=== PATIENT | male | born 1945 | race Caucasian/White ===

== ENCOUNTER 2020-09-07 10:23 | Emergency (ER) | payer OTHER, SELFPAY ==
[2020-09-07 10:35] VITALS: BP 149/65; PULSE 76; RESP 20; TEMP 36.3; O2SAT 98; BMI 25.1
--- NOTE | 2020-09-07 10:48 | CT_ITS ---
WS: [id number] CT HEAD TECHNIQUE: Noncontrast CT of the head obtained from the skullbase to the vertex. CLINICAL INFORMATION: headache COMPARISON: None. DLP: 1844.[address] scans at [facility] use at least one of these dose optimization techniques: automat ed exposure control; mA and/or kV adjustment per patient size (includes targeted exams where dose is matched to clinical indication); or iterative reconstruction. FINDINGS: No evidence of intracranial hemorrhage or mass effect. Ventricular system and basal cisterns are day nt. Moderate small vessel changes with moderate parenchymal volume loss. Chronic lacunar infarct righ t caudate. No extra-axial fluid collections. No evidence of mass or mass effect. Paranasal sinuses and mastoid air cells are well aerated. .Normal visualized soft tissues. CT/CT head wo con* [id number] IMPRESSION: 1. No evidence of intracranial hemorrhage or mass effect. 2. Moderate small vessel changes. Moderate global volume loss. 3. Chronic lacunar infarct right caudate. 4. No acute intracranial findings.
--- NOTE | 2020-09-07 10:49 | XR_ITS ---
WS: [id number] Portable AP upright chest, 09/07/2020 Clinical Data: cough Comparison: None. Findings: No nodules, masses or effusions are seen. The heart is normal. The pulmonary vascularity is not increased. No pneumonia or pneumothorax is seen. The diaphragms are flattened. The aortic arch a nd descending aorta show calcification and mild tortuosity. XR/XR chest 1V portable [id number] Impression: Hyperinflation and atherosclerosis.
--- NOTE | 2020-09-07 10:49 | ECG_ITS ---
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 Measurements Intervals [place] Rate: 66 P: 59 GA: 180 QRS: 34 QRSD: 86 T: 79 QT: 379 QTc: 400 Interpretive Statements SINUS RHYTHM No previous ECG available for comparison Electronically Signed On 09-07-2020 18:22:48 CDT by Yury Buck M.D. [id number] f
--- NOTE | 2020-09-07 10:57 | W.ED.SOB ---
HPI - SOB/Dyspnea General: Chief Complaint: Shortness of Breath/Dyspnea Stated Complaint: SOB, weakness Time Seen by Provider: 09/07/20 10:39 History of Present Illness: HPI Narrative: 75-year-old male patient presents to the emergency department with 5-day onset of weakness. He reports progressive shortness of breath, loss of appetite, he denies fever chills. Has not been exposed to anyone ill. MD elicited complaint: shortness of breath and cough Pertinent past history: COPD Onset (ago): day(s) (5) Timing: constant and progressively worsening Severity: moderate Exacerbating factors: exertion and movement Relieving factors: rest Known history of: COPD Associated symptoms: Reports chest congestion (not changed from baseline), cough, dizziness and other (headache with blurred vision); Deny abdominal pain, chest pain, diaphoresis, fever(s), hemoptysis, nausea, palpitations or vomiting Treatment prior to arrival: other (use of inhaler) Review of Systems General: Reports: 10 or more systems reviewed and unremarkable except in HPI and below Const: Reports: fatigue and malaise; Denies: fever(s), chills or diaphoresis Eyes: Reports: change in vision and blurry vision; Denies: eye redness ENMT: Denies: throat pain, dental pain or disequilibrium Card: Denies: chest pain, palpitations or irregular heart rhythm Resp: Reports: productive cough (arambula) and chest congestion (not changed from baseline); Denies: dyspnea, non-productive cough, wheezing, pain on inspiration or hemoptysis GI: Denies: abdominal pain, nausea or vomiting : Denies: dysuria Musc: Reports: muscle weakness; Denies: neck pain or back pain Skin/Breast: Denies: rash, pruritus, erythema or changing lesions Neuro: Reports: headache(s) and dizziness Psych: Denies: anxiety or depression Yannick/Lymph: Denies: easy bruising PFSH ED PFSH: Family History (Updated 01/07/20 @ 08:43 by Leelee Stratton LPN) Father Cancer Prostate CA COPD (chronic obstructive pulmonary disease) Stroke Mother Cancer Ovarian CA Hypertension Physical Exam Const: COMMON NORMALS: no acute distress, patient oriented x3 and alert GENERAL APPEARANCE: cooperative, comfortable, well kempt and well hydrated NUTRITIONAL APPEARANCE: thin ORIENTATION/CONSCIOUSNESS: Yes awake, Yes oriented to person, Yes oriented to place and Yes oriented to time HENMT: COMMON NORMALS: normocephalic, Normal external nose present and moist oral mucous membranes HEAD & SCALP: normocephalic NOSE: Normal external nose present Eye: COMMON NORMALS: Equal, round and reactive pupils present and EOMs intact bilaterally GENERAL EYE: appearance normal, both eyes and all related structures VISUAL SAMUEL: No peripheral vision loss ALIGNMENT: Yes alignment normal EYELID: eyelids normal PUPIL: Yes Equal, round and reactive pupils present, Yes pupil size - right Right pupil size (mm): 3 and Yes pupil size - left Left pupil size (mm): 3 Neck/C-Spine: COMMON NORMALS: full ROM and no lymphadenopathy GENERAL: Yes normal visual inspection and Yes trachea midline CERVICAL SPINE: Yes cervical ROM normal Lymph: LYMPHATIC: no lymphadenopathy noted Chest: COMMONS NORMALS: normal inspection of the chest and normal palpation of entire chest wall Resp: COMMON NORMALS: normal respiratory effort and clear to auscultation bilaterally EFFORT & INSPECTION: Yes able to speak in complete sentences AUSCULTATION: clear to auscultation bilaterally Cardio: COMMON NORMALS: regular rhythm, S1 normal heart sound present, S2 normal heart sound present and Peripheral pulses 2+ throughout RHYTHM: regular rhythm HEART SOUNDS: S1 normal heart sound present and S2 normal heart sound present PERIPHERAL PULSES: Peripheral pulses 2+ throughout GI: COMMON NORMALS: Normal to inspection, nondistended, normoactive bowel sounds present, Soft to palpation and non-tender INSPECTION: Yes normal to inspection PALPATION: Yes Soft to palpation : COMMON NORMALS: Yes no CVA tenderness BLADDER/KIDNEY EXAM: Yes no CVA tenderness Back/Pelvis: COMMON NORMALS: no CVA tenderness and thoracic and lumbar spine normal to inspection Extremity: COMMON NORMALS: normal to inspection and capillary refill normal GENERAL: Yes normal exam except as noted Neuro: SHANON COMA SCALE: document GCS findings [place] coma scale eye opening: Spontaneous Shanon coma scale verbal response: Orientated [place] coma scale motor response: Obey commands Shanon coma scale total score: 15 COMMON NORMALS: patient oriented x3 and no focal motor deficits SENSORIUM/ORIENTATION: Yes alert, Yes oriented to person, Yes oriented to place and Yes oriented to time SPEECH: speech normal GAIT: Yes Normal gait present MOTOR EXAM: 5/5 motor strength present throughout Psych: COMMON NORMALS: mental status grossly normal, Normal thought process present and cooperative APPEARANCE: Yes well kempt ACTIVITY/MOTOR BEHAVIOR: Yes appropriate eye contact THOUGHT PROCESS: Normal thought process present Skin: COMMON NORMALS: no rashes or lesions noted and turgor normal GENERAL SKIN EXAM: no rashes or lesions noted and turgor normal Course ED course: Heart score 4 -delta increase of greater than 4, results 6; hospitalization for cardiac monitoring recommended, he declined, he reports does not wish to stay and wants to go home. CT scan of the head negative for bleed/acute abnormality, chest x-ray with atherosclerosis/hyperinflation consistent with COPD. D-dimer was not elevated. CBC normal. He agrees for COVID-19 testing today with recommendation for home oxygen monitoring. Oxygen sensor will be provided to the patient, advised for him to return to the emergency department if he develops increased weakness, chest pain or vomiting, verbalized understanding. He reports is feeling better since IV fluids completed. He agrees for follow-up with Dr. Mirza with outpatient nuclear medicine stress test. COVID-19 results will be provided to the patient within 24 to 48 hours. Results of today's testing discussed with the patient and significant other, questions were answered, discharge instructions discussed. He remains on cholesterol-lowering medication and daily aspirin. He is aware of my concern with elevated troponin and EKG changes according to computerized readout, I discussed can result if he does not stay, he reports will return to the emergency room if he develops worsening symptoms. He again declined admission. Vital Signs: Vital signs: Vital Signs Temperature 97.3 F L 09/07/20 10:35 Pulse Rate 81 09/07/20 14:00 Respiratory Rate 16 09/07/20 14:00 Blood Pressure 132/74 09/07/20 14:00 Pulse Oximetry 97 09/07/20 14:00 MDM - SOB/Dyspnea Lab Data: Labs: Lab Results 09/07/20 09/07/20 09/07/20 Range/Units 11:45 11:45 11:45 WBC 5.9 (4.0-10.0) 10^3/ uL RBC 3.82 L (4.1-5.3) 10^6/u L Hgb 12.5 (11.7-16.6) g/dL Hct 37.1 L (42.0-52.0) % MCV 97.1 H (80-94) fL MCH 32.7 (28.0-34.0) pg MCHC 33.7 (30.0-36.0) g/dL RDW 12.6 (12.1-15.1) % Plt Count 168 (130-400) 10^3/c mm MPV 9.4 (7.4-10.4) fL Neut % (Auto) 66.4 % Lymph % (Auto) 22.2 % [place] % (Auto) 9.8 % Eos % (Auto) 1.0 % Baso % (Auto) 0.3 % Neut # (Auto) 3.92 (1.8-7.7) 10^3/u L Lymph # (Auto) 1.3 (0.8-4.8) 10^3/u L [place] # (Auto) 0.6 (0.2-0.9) 10^3/u L Eos # (Auto) 0.1 (0.0-0.8) 10^3/u L Baso # (Auto) 0.0 (0.0-0.1) 10^3/u L Nucleated RBC % (a uto) 0 % Nucleated RBCs # 0.0 /100WBC D-Dimer 0.57 (0-0.59) ug/mIFE U Sodium 131 L (136-145) mmol/L Potassium 4.4 (3.5-5.1) mmol/L Chloride 98 (98-107) mmol/L Carbon Dioxide 25 (22-29) mmol/L Anion Gap 12.4 (5-19) BUN 14 (8-23) mg/dL Creatinine 0.9 (0.7-1.2) mg/dL GFR Calculation Not Reportable Glucose 115 (65-115) mg/dL Calculated Osmolal ity 273 L (285-295) mOsm/k g Lactate (0.5-2.2) mmol/L Calcium 9.1 (8.5-10.5) mg/dL Total Bilirubin 0.6 (0.15-1.2) mg/dL AST 16 (0-40) U/L ALT 14 (0-41) U/L Alkaline Phosphata se 75 (40-130) IU/L Troponin T Baselin e (0-15) ng/L Troponin T 120 Min [place] (0-15) ng/L Delta Troponin T (0-10) ABS# Total Protein 6.3 L (6.6-8.7) g/dL Albumin 4.0 (3.5-5.2) g/dL Globulin 2.3 (1.3-4.6) g/dL Urine Color (Yellow) Urine Appearance (CLEAR) Urine pH (5-7) Ur Specific Gravit y (1.005-1.030) Urine Protein (Negative) Urine Glucose (UA) (Normal) Urine Ketones (Negative) Urine Blood (Negative) Urine Nitrate (Negative) Urine Bilirubin (Negative) Prot Sulfosalicyli c Acd (Negative) Urine Urobilinogen (Negative) mg/dL Ur Leukocyte Aislinn ase (Negative) 09/07/20 09/07/20 09/07/20 Range/Units 11:45 11:45 11:45 WBC (4.0-10.0) 10^3/ uL RBC (4.1-5.3) 10^6/u L Hgb (11.7-16.6) g/dL Hct (42.0-52.0) % MCV (80-94) fL MCH (28.0-34.0) pg MCHC (30.0-36.0) g/dL RDW (12.1-15.1) % Plt Count (130-400) 10^3/c mm MPV (7.4-10.4) fL Neut % (Auto) % Lymph % (Auto) % [place] % (Auto) % Eos % (Auto) % Baso % (Auto) % Neut # (Auto) (1.8-7.7) 10^3/u L Lymph # (Auto) (0.8-4.8) 10^3/u L [place] # (Auto) (0.2-0.9) 10^3/u L Eos # (Auto) (0.0-0.8) 10^3/u L Baso # (Auto) (0.0-0.1) 10^3/u L Nucleated RBC % (a uto) % Nucleated RBCs # /100WBC D-Dimer (0-0.59) ug/mIFE U Sodium (136-145) mmol/L Potassium (3.5-5.1) mmol/L Chloride (98-107) mmol/L Carbon Dioxide (22-29) mmol/L Anion Gap (5-19) BUN (8-23) mg/dL Creatinine (0.7-1.2) mg/dL GFR Calculation Glucose (65-115) mg/dL Calculated Osmolal ity (285-295) mOsm/k g Lactate 0.8 (0.5-2.2) mmol/L Calcium (8.5-10.5) mg/dL Total Bilirubin (0.15-1.2) mg/dL AST (0-40) U/L ALT (0-41) U/L Alkaline Phosphata se (40-130) IU/L Troponin T Baselin e 21 H (0-15) ng/L Troponin T 120 Min [place] (0-15) ng/L Delta Troponin T (0-10) ABS# Total Protein (6.6-8.7) g/dL Albumin (3.5-5.2) g/dL Globulin (1.3-4.6) g/dL Urine Color Yellow (Yellow) Urine Appearance Clear (CLEAR) Urine pH 8 H (5-7) Ur Specific Gravit y 1.010 (1.005-1.030) Urine Protein Neg (Negative) Urine Glucose (UA) Norm (Normal) Urine Ketones Negative (Negative) Urine Blood Neg (Negative) Urine Nitrate Negative (Negative) Urine Bilirubin Neg (Negative) Prot Sulfosalicyli c Acd Negative (Negative) Urine Urobilinogen Norm (Negative) mg/dL Ur Leukocyte Aislinn ase Negative (Negative) 09/07/20 Range/Units 13:45 WBC (4.0-10.0) 10^3/ uL RBC (4.1-5.3) 10^6/u L Hgb (11.7-16.6) g/dL Hct (42.0-52.0) % MCV (80-94) fL MCH (28.0-34.0) pg MCHC (30.0-36.0) g/dL RDW (12.1-15.1) % Plt Count (130-400) 10^3/c mm MPV (7.4-10.4) fL Neut % (Auto) % Lymph % (Auto) % [place] % (Auto) % Eos % (Auto) % Baso % (Auto) % Neut # (Auto) (1.8-7.7) 10^3/u L Lymph # (Auto) (0.8-4.8) 10^3/u L [place] # (Auto) (0.2-0.9) 10^3/u L Eos # (Auto) (0.0-0.8) 10^3/u L Baso # (Auto) (0.0-0.1) 10^3/u L Nucleated RBC % (a uto) % Nucleated RBCs # /100WBC D-Dimer (0-0.59) ug/mIFE U Sodium (136-145) mmol/L Potassium (3.5-5.1) mmol/L Chloride (98-107) mmol/L Carbon Dioxide (22-29) mmol/L Anion Gap (5-19) BUN (8-23) mg/dL Creatinine (0.7-1.2) mg/dL GFR Calculation Glucose (65-115) mg/dL Calculated Osmolal ity (285-295) mOsm/k g Lactate (0.5-2.2) mmol/L Calcium (8.5-10.5) mg/dL Total Bilirubin (0.15-1.2) mg/dL AST (0-40) U/L ALT (0-41) U/L Alkaline Phosphata se (40-130) IU/L Troponin T Baselin e (0-15) ng/L Troponin T 120 Min [place] 27.41 H (0-15) ng/L Delta Troponin T 6.41 (0-10) ABS# Total Protein (6.6-8.7) g/dL Albumin (3.5-5.2) g/dL Globulin (1.3-4.6) g/dL Urine Color (Yellow) Urine Appearance (CLEAR) Urine pH (5-7) Ur Specific Gravit y (1.005-1.030) Urine Protein (Negative) Urine Glucose (UA) (Normal) Urine Ketones (Negative) Urine Blood (Negative) Urine Nitrate (Negative) Urine Bilirubin (Negative) Prot Sulfosalicyli c Acd (Negative) Urine Urobilinogen (Negative) mg/dL Ur Leukocyte Aislinn ase (Negative) Imaging Data^: CXR: Radiologist's impression: [address] [address] XRay Report Signed Patient: Osbaldo Alvarado Unit #: [id number] : 1945 Age/Sex: 75 / M ADM Date: 09/07/20 Loc: ER Room/Bed: Attending Dr: Ordering Provider/Ordering MD: Yulissa Colunga Date of Service: 09/07/20 Procedure(s): XR chest 1V portable [id number] Accession Number(s): [id number] Report Number: [id number] WS: [id number] Portable AP upright chest, 09/07/2020 Clinical Data: cough Comparison: None. Findings: No nodules, masses or effusions are seen. The heart is normal. The pulmonary vascularity is not increased. No pneumonia or pneumothorax is seen. The diaphragms are flattened. The aortic arch and descending aorta show calcification and mild tortuosity. XR/XR chest 1V portable [id number] Impression: Hyperinflation and atherosclerosis. Dictated By: Deepa Grimaldo MD Signed By: Deepa Grimaldo MD Signed Date/Time: 09/07/20 1100 DD/ 1059 CT Head: Radiologist's impression: [facility] [address] [place] [address] CT Scan Report Signed Patient: Osbaldo Alvarado Unit #: [id number] : 1945 Age/Sex: 75 / M ADM Date: 09/07/20 Loc: ER Room/Bed: Attending Dr: Ordering Provider/Ordering MD: Yulissa Colunga Date of Service: 09/07/20 Procedure(s): CT head wo con* [id number] Accession Number(s): [id number] Report Number: [id number] WS: [id number] CT HEAD TECHNIQUE: Noncontrast CT of the head obtained from the skullbase to the vertex. CLINICAL INFORMATION: headache COMPARISON: None. DLP: 1844.[address] scans at [facility] use at least one of these dose optimization techniques: automated exposure control; mA and/or kV adjustment per patient size (includes targeted exams where dose is matched to clinical indication); or iterative reconstruction. FINDINGS: No evidence of intracranial hemorrhage or mass effect. Ventricular system and basal cisterns are patent. Moderate small vessel changes with moderate parenchymal volume loss. Chronic lacunar infarct right caudate. No extra-axial fluid collections. No evidence of mass or mass effect. Paranasal sinuses and mastoid air cells are well aerated. .Normal visualized soft tissues. CT/CT head wo con* [id number] IMPRESSION: 1. No evidence of intracranial hemorrhage or mass effect. 2. Moderate small vessel changes. Moderate global volume loss. 3. Chronic lacunar infarct right caudate. 4. No acute intracranial findings. Dictated By: Shamar Dyson MD Signed By: Shamar Dyson MD Signed Date/Time: 09/07/201245 DD/ 42 EKG Data^: EKG 1: EKG Interpretation Date: 09/07/20 EKG interpretation time: 11:02 Prior EKG tracings: not available for review Computer Generated Interpretation: Sinus rhythm, normal ECG EKG 2: EKG Interpretation Date: 09/07/20 EKG interpretation time: 12:55 Other EKG Comments: Sinus rhythm, septal myocardial infarction, abnormal ECG Discharge Plan Discharge Patient Disposition: Home Clinical Impression: Weakness, Suspected 2019 novel coronavirus infection COPD (chronic obstructive pulmonary disease) Qualifiers: COPD type: chronic bronchitis Chronic bronchitis type: simple Qualified Code(s): J41.0 - Simple chronic bronchitis Condition: Stable Prescriptions: No Action nitroglycerin [Nitrostat] 0.4 mg tablet, sublingual 0.4 mg SUBLINGUAL Q5M PRNRF: 0 coenzyme Q10 [Co Q-10] 10 mg capsule 10 mg PO TID RF: 0 rosuvastatin 5 mg tablet 2.5 mg PO DAILY RF: 0 mometasone 220 mcg/ actuation (60) aerosol powdr breath activated 1 inh INHALATION BID RF: 0 albuterol sulfate [ProAir HFA] 90 mcg/actuation HFA aerosol inhaler 2 puff INHALATION Q6H PRNRF: 0 terazosin 2 mg capsule 2 mg PO DAILY RF: 0 aspirin [Adult Low Dose Aspirin] 81 mg tablet,delayed release (DR/EC) 81 mg PO DAILY RF: 0 folic acid 800 mcg tablet 0.8 mg PO DAILY RF: 0 mirtazapine 30 mg tablet 30 mg PO DAILY RF: 0 cholecalciferol (vitamin D3) 25 mcg (1,000 unit) capsule 1,000 unit PO DAILY RF: 0 multivitamin Tablet 1 tab PO DAILY RF: 0 furosemide [Lasix] 20 mg tablet 10 mg PO QAM PRNRF: 0 Discharge Orders: Discharge Order (Routine); Ordered 09/07/20 Ordered By: Yulissa Colunga Discharge Diet: Usual diet Discharge Activity: Resume usual activity Patient Instructions: Chronic Bronchitis (ED), Viral Syndrome (ED), Weakness (ED) Activity Restrictions/Additional Instructions: Social service will contact you with appointment date and time for cardiology and stress test Return to the emergency department if you develop worsening symptoms such as increased weakness, vomiting, dizziness, or chest pain Continue current medications including aspirin daily, cholesterol medications daily Follow-up with your primary care provider in 7 days Return to the emergency department if you develop difficulty breathing, oxygen saturation less than 90%, home oxygen monitor will be provided, monitor your oxygen frequently especially if you experience shortness of breath. You will be contacted with COVID-19 results in 24 to 48 hours. Remain in quarantine until results are available. Discharge Date/Time: 09/07/20 15:09 Coding Level of Care Code ED [employer] for [employer] Fwd Exam Comprehensive
[2020-09-07 11:07] VITALS: BP 151/71; PULSE 66; RESP 17; O2SAT 99
[2020-09-07 11:51] LABS: Add Urine Microscopic? NO
[2020-09-07 11:52] LABS: Basophils % 0.3 %; Eosinophils # 0.1 10^3/uL (0.0-0.8); Hematocrit 37.1 % (42.0-52.0); Hemoglobin 12.5 g/dL (11.7-16.6); Lymphocytes # 1.3 10^3/uL (0.8-4.8); Lymphocytes % 22.2 %; Mean Corpuscular HGB Conc 33.7 g/dL (30.0-36.0); Mean Corpuscular Hemoglobin 32.7 pg (28.0-34.0); Mean Corpuscular Volume 97.1 fL (80-94); Mean Platelet Volume 9.4 fL (7.4-10.4); Monocytes # 0.6 10^3/uL (0.2-0.9); Monocytes % 9.8 %; Neutrophils # 3.92 10^3/uL (1.8-7.7); Neutrophils % 66.4 %; Nucleated Red Blood Cells % 0 %; Platelet Count 168 10^3/cmm (130-400); Red Blood Count 3.82 10^6/uL (4.1-5.3); Red Cell Distribution Width 12.6 % (12.1-15.1); White Blood Count 5.9 10^3/uL (4.0-10.0)
[2020-09-07 12:05] LABS: Urine Appearance Clear (CLEAR); Urine Color Yellow (Yellow); pH Urine 8 (5-7)
[2020-09-07 12:06] LABS: Bilirubin Urine Neg (Negative); Blood Urine Neg (Negative); Glucose Urine UA Norm (Normal); Ketones Urine Negative (Negative); Leukocyte Esterase Urine Negative (Negative); Nitrate Urine Negative (Negative); Protein Urine Neg (Negative); Sulfosalicylic Acid Urine Negative (Negative); Urobilinogen Urine Norm (Negative)
[2020-09-07 12:10] LABS: D Dimer 0.57 ug/mIFEU (0-0.59)
[2020-09-07 12:20] LABS: Alanine Aminotransferase 14 U/L (0-41); Alkaline Phosphatase 75 IU/L (40-130); Anion Gap 12.4 (5-19); Aspartate Amino Transferase 16 U/L (0-40); Blood Urea Nitrogen 14 mg/dL (8-23); Calcium 9.1 mg/dL (8.5-10.5); Carbon Dioxide 25 mmol/L (22-29); Chloride 98 mmol/L (98-107); Globulin 2.3 g/dL (1.3-4.6); Glucose 115 mg/dL (65-115); Lactate (Lactic Acid level) 0.8 mmol/L (0.5-2.2); Osmolality Calculated 273 mOsm/kg (285-295); Potassium 4.4 mmol/L (3.5-5.1); Sodium 131 mmol/L (136-145); Total Bilirubin 0.6 mg/dL (0.15-1.2); Total Protein 6.3 g/dL (6.6-8.7)
[2020-09-07 12:21] LABS: Troponin(5th) Baseline 21 ng/L (0-15)
--- NOTE | 2020-09-07 12:49 | ECG_ITS ---
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 Measurements Intervals [place] Rate: 61 P: 65 SC: 184 QRS: 63 QRSD: 87 T: 70 QT: 410 QTc: 413 Interpretive Statements SINUS RHYTHM SEPTAL MYOCARDIAL INFARCTION [40+ ms Q WAVE IN V1/V2], OF INDETERMINATE AGE Compared to ECG 09/07/2020 11:01:55 No significant changes Electronically Signed On 09-07-2020 18:28:46 CDT by Yury Buck M.D. [id number] f
[2020-09-07 13:06] VITALS: BP 130/63; BP 143/56; PULSE 62; PULSE 64; RESP 17; RESP 18; O2SAT 94; O2SAT 99
[2020-09-07] MEDS: sodium chloride 0.9% 1,000 ML 999 ML IV (13:06)
[2020-09-07 13:07] VITALS: BP 130/63; PULSE 66; RESP 18; O2SAT 97
[2020-09-07 14:00] VITALS: BP 132/74; PULSE 81; RESP 16; O2SAT 97
[2020-09-07 14:18] LABS: Troponin 5 2HR 27.41 ng/L (0-15); Troponin 5 2HR Delta 6.41 ABS# (0-10)
[2020-09-07 15:06] VITALS: BP 142/86; PULSE 76; RESP 16; O2SAT 97
--- NOTE | 2020-09-08 11:30 | DCPLANNER ---
performing arts road manager had message to schedule an outpatient stress test for patient. performing arts road manager faxed order to centralized scheduling, will call for appointment information.
[2020-09-08 18:03] LABS: Quest SARS-CoV-2 RNA NOT DETECTED (NOT DETECTED)
--- NOTE | 2020-09-09 08:00 | PC.NURSE ---
Pt called and notified of negative COVID result.
--- NOTE | 2020-09-11 09:42 | DCPLANNER ---
Elodia from [facility] called outpatient case manager asking about a referral for patient. Patient has [facility] insurance, outpatient case manager had a message to schedule a out patient stress test for patient. manager of business faxed order to centralized scheduling. Patient has [facility] insurance, stress test can not be ordered from the ED, will have to refer patient to cardiology. manager of business called [facility], spoke with Bettina, a follow up appointment was scheduled for Friday, September 18, 2020 at 9:00 with PROFESSOR OF SOCIOLOGY, Nicole Murry. manager of business called patients and gave her the appointment information. manager of business also emailed February with [facility] patients ER records over a secure email along with appointment information.
--- NOTE | 2020-10-18 12:23 | DCPLANNER ---
Patient had an out patient stress test scheduled for 20 - patient did attend appointment.
== END 2020-09-07 15:09 | disposition home or self-care (01) ==
PROVIDERS: Emergency Provider Nurse Practitioner Family
DX: J41.0 Simple chronic bronchitis (principal); R53.1 Weakness; Z79.82 Long term (current) use of aspirin
CPT/HCPCS: 12345; 70450; 71045; 80053; 81003; 83605; 84484; 85025; 85378; 87635; 93005; 96360; 99284; J7030

== ENCOUNTER 2020-09-25 09:03 | Outpatient (CLI) | payer OTHER, SELFPAY ==
--- NOTE | 2020-09-25 09:22 | ECG_ITS ---
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 Interpretive Statements NAME OF STUDY: LEXISCAN SESTAMIBI STRESS TEST INDICATION: Chest Pain, PROCEDURE: At the baseline, the EKG revealed normal sinus rhythm with a poor R wave progression. Possible old anteroseptal [place]. The baseline blood pressure was 141/74 mm Hg with a heart rate of 74 beats/min. Lexiscan was infused over a period of 20 seconds. A total of 0.4 milligrams of Lexiscan was infused. The stress phase was continued for a total of 5 minutes. Heart rate at the end of the stress phase was 88 with a blood pressure 130/60. The EKG at the peak infusion revealed no significant changes. Sestamibi was injected 20 seconds after the Lexiscan infusion. Blood pressure at the end of the recovery phase was 133/62 with a heart rate of 87 per minute. CONCLUSION: 1. No significant EKG changes with the LexiScan infusion 2. No LexiScan induced chest pain or cardiac arrhythmia 3. Normal blood pressure and heart rate response to the Lexiscan infusion 4. Sestamibi/sestamibi perfusion scan pending; see separate report. Electronically Signed On 09-26-2020 18:19:10 CONTACT ASSEMBLER by Faye Michel M.D. [id number]
--- NOTE | 2020-09-25 09:22 | NMCV_ITS ---
NM luis perf SPECT r/s* [id number] Osbaldo Alvarado Age: 75 Gender: M : 1945 Exam Date: 09/25/2020 09:22 Ordering Phys: Nicole Murry Technologist: LIZANDRO Iverson Exam Location: [facility] Indications: ATHEROSCLEROTIC HEART DISEASE STRESS TEST Please see separate stress test report in [facility] for full findings IMAGE PROTOCOL Rest/Stress 1 Lexiscan Day Radiopharmaceutical Dose (mCi) Administration Site Administered by Rest: Tc-99m 10.7 IV LIZANDRO Rokcwell Sestamibi Stress:Tc-99m 33.0 IV LIZANDRO Rockwell Sestamibi Rest: 25-Sep-2020 60 Discovery 630 Stress: 25-Sep-2020 30 Discovery 630 0.4mg Lexiscan. Supine position only as patient was unable to lay prone. SPECT RESULTS Technical Quality: Good Raw Data Analysis: Normal Image Corrections: Patient motion artifact - motion correction applied to stress images. Summed Stress Score: 4 Summed Rest Score: 8 Summed Difference Score: 0 PERFUSION FINDINGS Moderate area of decreased tracer uptake was noted in the basal ,mid and apical inferior, basal and mid inferoseptal, apical septal and mid anteroseptal regions. No significant reversibility was noted in these regions. FUNCTIONAL RESULTS (calculated via Gated SPECT) Stress Image LV EF (%): 66 Stress EDV (mL):93 TID: 1.1 Stress ESV (mL):32 FUNCTIONAL FINDINGS: Segmental wall motion analysis revealed mild diffuse hypokinesia of the septum IMPRESSIONS 1. Myocardial perfusion may revealing areas of persistent decreased tracer uptake in the inferior wall, inferoseptal, anteroseptal and apical regions, suggestive of myocardial scarring versus attenuation artifact. 2. Normal LV ejection fraction of 66%. 3. LV wall motion analysis revealing mild diffuse hypokinesia of the septum. 4. Normal LV volume. No significant coronary ischemia, based on the above and Dr Faye Michel MD FACC (Electronically Signed) Final Date: 25 September 2020 14:23 S
[2020-09-25 09:23] VITALS: BMI 24.0
[2020-09-25] MEDS: regadenoson 0.4 Mg/5 ml Syringe IVP (10:44)
[2020-09-25 10:45] VITALS: BP 137/78; PULSE 91
== END 2020-09-25 09:04 | disposition home or self-care (01) ==
LOC: CDL 09:05
PROVIDERS: PCP Family Medicine; Visit Provider Nurse Practitioner Family
DX: I25.10 Atherosclerotic heart disease of native coronary artery without angina pectoris (principal)
CPT/HCPCS: 78452; 93017; A9500; J2785

== ENCOUNTER 2021-02-19 08:57 | Emergency (ER) | payer OTHER, SELFPAY ==
[2021-02-19 09:04] VITALS: BP 165/82; PULSE 80; RESP 19; TEMP 36.2; O2SAT 99; BMI 24.3
[2021-02-19 09:07] VITALS: BP 165/82; PULSE 71; RESP 18; O2SAT 99
--- NOTE | 2021-02-19 09:14 | ECG_ITS ---
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 Measurements Intervals [place] Rate: 68 P: 58 NJ: 178 QRS: 55 QRSD: 83 T: 77 QT: 391 QTc: 417 Interpretive Statements SINUS RHYTHM Compared to ECG 09/07/2020 12:51:48 Myocardial infarct finding no longer present Electronically Signed On 02-20-2021 1:12:21 CDT by Faye Michel M.D. [id number]
--- NOTE | 2021-02-19 09:14 | XRR_ITS ---
PROCEDURE INFORMATION: Exam: XR Chest Exam date and time: 02/19/2021 9:19 AM Age: 75 years old Clinical indication: Cough and shortness of breath; Additional info: Dyspnea/cough TECHNIQUE: Imaging protocol: XR of the chest Views: 1 view. COMPARISON: CR XR chest 1V portable [id number] 09/07/2020 10:49 AM FINDINGS: Lungs: There is overinflation of the lungs indicating pulmonary emphysema. Stable interstitial changes in the lung bases are consistent with chronic fibrosis. No pneumonia is seen. Pleural spaces: Unremarkable. No pleural effusion. No pneumothorax. Heart/Mediastinum: Unremarkable. No cardiomegaly. Bones/joints: Unremarkable. XR/XR chest 1V portable [id number] IMPRESSION: 1. No acute abnormality. 2. Pulmonary emphysema and basilar interstitial fibrosis.
[2021-02-19 09:37] VITALS: BP 126/65; PULSE 73; RESP 18; O2SAT 97
[2021-02-19 09:42] LABS: Basophils % 0.4 %; Eosinophils # 0.1 10^3/uL (0.0-0.8); Eosinophils % 2.5 %; Hemoglobin 13.1 g/dL (11.7-16.6); Lymphocytes # 1.6 10^3/uL (0.8-4.8); Lymphocytes % 29.4 %; Mean Corpuscular HGB Conc 33.6 g/dL (30.0-36.0); Mean Corpuscular Hemoglobin 32.7 pg (28.0-34.0); Mean Corpuscular Volume 97.3 fL (80-94); Monocytes # 0.6 10^3/uL (0.2-0.9); Monocytes % 11.2 %; Neutrophils # 2.97 10^3/uL (1.8-7.7); Neutrophils % 56.3 %; Nucleated Red Blood Cells % 0 %; Platelet Count 165 10^3/cmm (130-400); Red Blood Count 4.01 10^6/uL (4.1-5.3); Red Cell Distribution Width 12.9 % (12.1-15.1); White Blood Count 5.3 10^3/uL (4.0-10.0)
--- NOTE | 2021-02-19 09:54 | W.ED.GENADLT ---
HPI - General Adult General: Chief complaint: General Medical Stated complaint: coughing up blood Time Seen by Provider: 02/19/21 09:09 History of Present Illness: HPI narrative: 75-year-old male presents with complaint of hemoptysis that began 2 days ago. He denies any fevers sweats or chills. Patient has chronic shortness of breath he is a lifelong smoker and continues to smoke up to a pack a day. No previous episodes of chest pain or hemoptysis. Patient has not had Covid he has had 2 of his Covid vaccinations the second 1 being approximately a month ago. Patient states he has chronic shortness of breath but has not really changed from his usual baseline. Onset (ago): day(s) (2) Location: chest Severity: moderate Relieving factors: none Exacerbating factors: none Associated symptoms: Reports dyspnea (Chronic at baseline) and short of breath; Deny chest pain, confusion, cough, diaphoresis, decreased appetite, fevers/chills, headache(s), malaise, nausea, rash, palpitations, seizures, syncope, vomiting or weakness Treatments prior to arrival: none Review of Systems Const: Denies: diaphoresis ENMT: Denies: throat pain, ear or mastoid pain, nasal discharge or nasal congestion Card: Denies: chest pain, palpitations or syncope Resp: Reports: dyspnea (Chronic at baseline), productive cough and hemoptysis GI: Denies: nausea or vomiting : Denies: flank pain, dysuria, urinary frequency or urinary urgency Skin/Breast: Denies: rash Neuro: Denies: headache(s) or confusion PFS ED PFSH: Medical History Arthritis Claudication COPD (chronic obstructive pulmonary disease) Coronary artery disease HTN (hypertension) Hyperlipidemia Rheumatic heart disease Family History Father Cancer Prostate CA COPD (chronic obstructive pulmonary disease) Stroke Mother Cancer Ovarian CA Hypertension Social History Smoking and tobacco status: current every day smoker cigarettes Packs smoked per day: 1 Alcohol intake: current Alcohol intake frequency: few times a week Substance/Drug Use: never Physical Exam Const: COMMON NORMALS: no acute distress GENERAL APPEARANCE: cooperative and comfortable ORIENTATION/CONSCIOUSNESS: Yes awake, Yes oriented to person, Yes oriented to place and Yes oriented to time HENMT: COMMON NORMALS: normocephalic, atraumatic and hearing grossly normal bilaterally HEAD & SCALP: normocephalic and atraumatic Neck/C-Spine: COMMON NORMALS: no JVD Resp: AUSCULTATION: rales and wheezes OTHER: Scant Rales bilaterally with expiratory wheezes. Cardio: COMMON NORMALS: no JVD, regular rate, regular rhythm and No murmurs present (Cardio) RATE: regular rate RHYTHM: regular rhythm GI: COMMON NORMALS: Soft to palpation and No hepatosplenomegaly present AUSCULTATION: Yes normoactive bowel sounds PALPATION: Yes Soft to palpation, No Tenderness to palpation present (GI), No Guarding due to palpation present (GI) and Yes No hepatosplenomegaly present Extremity: COMMON NORMALS: normal to inspection, capillary refill normal, no clubbing, cyanosis or edema, no calf tenderness and no pedal edema Neuro: SENSORIUM/ORIENTATION: Yes oriented to person, Yes oriented to place and Yes oriented to time Skin: COMMON NORMALS: no rashes or lesions noted GENERAL SKIN EXAM: no rashes or lesions noted Course Vital Signs: Vital signs: Vital Signs Temperature 97.2 F L 02/19/21 09:04 Pulse Rate 68 02/19/21 10:07 Respiratory Rate 18 02/19/21 10:07 Blood Pressure 121/68 02/19/21 10:07 Pulse Oximetry 99 02/19/21 10:07 MDM - General Adult MDM Narrative: Medical decision making narrative: No masses or PE on CTA. We will start him on antibiotics and steroid use albuterol. We are screening for Covid as well we will disposition him home return if he has problems working to set him up for follow-up with pulmonology in about 7 to 10 days to see if further evaluation is warranted based on his presenting complaint of hemoptysis Lab Data: Labs: Lab Results 02/19/21 02/19/21 02/19/21 Range/Units 09:09 09:34 09:34 WBC 5.3 (4.0-10.0) 10^3/ uL RBC 4.01 L (4.1-5.3) 10^6/u L Hgb 13.1 (11.7-16.6) g/dL Hct 39.0 L (42.0-52.0) % MCV 97.3 H (80-94) fL MCH 32.7 (28.0-34.0) pg MCHC 33.6 (30.0-36.0) g/dL RDW 12.9 (12.1-15.1) % Plt Count 165 (130-400) 10^3/c mm MPV 9.0 (7.4-10.4) fL Neut % (Auto) 56.3 % Lymph % (Auto) 29.4 % [place] % (Auto) 11.2 % Eos % (Auto) 2.5 % Baso % (Auto) 0.4 % Neut # (Auto) 2.97 (1.8-7.7) 10^3/u L Lymph # (Auto) 1.6 (0.8-4.8) 10^3/u L [place] # (Auto) 0.6 (0.2-0.9) 10^3/u L Eos # (Auto) 0.1 (0.0-0.8) 10^3/u L Baso # (Auto) 0.0 (0.0-0.1) 10^3/u L Nucleated RBC % (a uto) 0 % Nucleated RBCs # 0.0 /100WBC PT 13.40 (12.1-14.9) SECO NDS INR 0.99 (0.8-1.2) APTT 27.4 (23.9-36.7) SECO NDS Sodium (136-145) mmol/L Potassium (3.5-5.1) mmol/L Chloride (98-107) mmol/L Carbon Dioxide (22-29) mmol/L Anion Gap (5-19) BUN (8-23) mg/dL Creatinine (0.7-1.2) mg/dL GFR Calculation Glucose (65-115) mg/dL Calculated Osmolal ity (285-295) mOsm/k g Calcium (8.5-10.5) mg/dL Total Bilirubin (0.15-1.2) mg/dL AST (0-40) U/L ALT (0-41) U/L Alkaline Phosphata se (40-130) IU/L Total Protein (6.6-8.7) g/dL Albumin (3.5-5.2) g/dL Globulin (1.3-4.6) g/dL Sputum/Fluid Cytol ogy Cancelled 02/19/21 Range/Units 09:34 WBC (4.0-10.0) 10^3/ uL RBC (4.1-5.3) 10^6/u L Hgb (11.7-16.6) g/dL Hct (42.0-52.0) % MCV (80-94) fL MCH (28.0-34.0) pg MCHC (30.0-36.0) g/dL RDW (12.1-15.1) % Plt Count (130-400) 10^3/c mm MPV (7.4-10.4) fL Neut % (Auto) % Lymph % (Auto) % [place] % (Auto) % Eos % (Auto) % Baso % (Auto) % Neut # (Auto) (1.8-7.7) 10^3/u L Lymph # (Auto) (0.8-4.8) 10^3/u L [place] # (Auto) (0.2-0.9) 10^3/u L Eos # (Auto) (0.0-0.8) 10^3/u L Baso # (Auto) (0.0-0.1) 10^3/u L Nucleated RBC % (a uto) % Nucleated RBCs # /100WBC PT (12.1-14.9) SECO NDS INR (0.8-1.2) APTT (23.9-36.7) SECO NDS Sodium 134 L (136-145) mmol/L Potassium 4.0 (3.5-5.1) mmol/L Chloride 100 (98-107) mmol/L Carbon Dioxide 25 (22-29) mmol/L Anion Gap 13.0 (5-19) BUN 12 (8-23) mg/dL Creatinine 0.9 (0.7-1.2) mg/dL GFR Calculation Not Reportable Glucose 107 (65-115) mg/dL Calculated Osmolal ity 278 L (285-295) mOsm/k g Calcium 9.0 (8.5-10.5) mg/dL Total Bilirubin 0.4 (0.15-1.2) mg/dL AST 14 (0-40) U/L ALT 11 (0-41) U/L Alkaline Phosphata se 75 (40-130) IU/L Total Protein 7.0 (6.6-8.7) g/dL Albumin 4.1 (3.5-5.2) g/dL Globulin 2.9 (1.3-4.6) g/dL Sputum/Fluid Cytol ogy Discharge Plan Discharge Patient Disposition: Home Clinical Impression: Pneumonia, Cough with hemoptysis Condition: Stable Prescriptions: New doxycycline hyclate 100 mg capsule 100 mg PO BID 10 Days Qty: 20 RF: 0 Medrol (Jarett) 4 mg tablets,dose pack See Rx Instructions .ROUTE .COMPLEX Qty: 21 RF: 0 No Action nitroglycerin [Nitrostat] 0.4 mg tablet, sublingual 0.4 mg SUBLINGUAL Q5M PRNRF: 0 coenzyme Q10 [Co Q-10] 10 mg capsule 10 mg PO TID RF: 0 rosuvastatin 5 mg tablet 2.5 mg PO DAILY RF: 0 mometasone 220 mcg/ actuation (60) aerosol powdr breath activated 1 inh INHALATION BID RF: 0 albuterol sulfate [ProAir HFA] 90 mcg/actuation HFA aerosol inhaler 2 puff INHALATION Q6H PRNRF: 0 aspirin [Adult Low Dose Aspirin] 81 mg tablet,delayed release (DR/EC) 81 mg PO DAILY RF: 0 folic acid 800 mcg tablet 0.8 mg PO DAILY RF: 0 cholecalciferol (vitamin D3) 25 mcg (1,000 unit) capsule 1,000 unit PO DAILY RF: 0 multivitamin Tablet 1 tab PO DAILY RF: 0 furosemide [Lasix] 20 mg tablet 10 mg PO QAM PRNRF: 0 terazosin 2 mg capsule 4 mg PO DAILY RF: 0 Spiriva Respimat 2.5 mcg/actuation mist 2 puff inhalation DAILY RF: 0 Discharge Orders: Discharge ED (Routine); Ordered 02/19/21 Ordered By: Mitch Reid Referrals: Kaylene Veras MD [Primary Care Provider] - Discharge Diet: Usual diet Discharge Activity: Resume usual activity Patient Instructions: Opioid Safety Activity Restrictions/Additional Instructions: Start on antibiotics and steroids. We will have you follow-up with pulmonology in 7 to 10 days. You were tested for Covid we will call you with the results as soon as they are available you should self quarantine until results are back. Coding Level of Care Code ED Special Equipment Technician for Michael Fwd Exam Comprehensive
[2021-02-19 09:57] LABS: INR 0.99 (0.8-1.2)
[2021-02-19 09:58] LABS: Partial Thromboplastin Time 27.4 SECONDS (23.9-36.7)
[2021-02-19 09:59] LABS: Alanine Aminotransferase 11 U/L (0-41); Albumin Level 4.1 g/dL (3.5-5.2); Alkaline Phosphatase 75 IU/L (40-130); Aspartate Amino Transferase 14 U/L (0-40); Blood Urea Nitrogen 12 mg/dL (8-23); Carbon Dioxide 25 mmol/L (22-29); Chloride 100 mmol/L (98-107); Globulin 2.9 g/dL (1.3-4.6); Glucose 107 mg/dL (65-115); Osmolality Calculated 278 mOsm/kg (285-295); Sodium 134 mmol/L (136-145); Total Bilirubin 0.4 mg/dL (0.15-1.2)
[2021-02-19 10:07] VITALS: BP 121/68; PULSE 68; RESP 18; O2SAT 99
--- NOTE | 2021-02-19 10:27 | CT_ITS ---
WS: [id number] CT CHEST ANGIOGRAPHY WITH REFORMATS HISTORY: Dyspnea and hemoptysis. TECHNIQUE: Contiguous axial images are obtained through the chest during arterial injection of intrav enous contrast. Images are reconstructed to evaluate the pulmonary arteries. MIP imaging also reviewe d. All CT scans at [facility] use at least one of these dose optimization techniques: aut omated exposure control; mA and/or kV adjustment per patient size (includes targeted exams where dose is matched to clinical indication); or iterative reconstruction. CONTRAST: Visipaque 320; 95 mL IV. DLP: 635.03 mGy.cm COMPARISON: None available. Very good opacification of the pulmonary arteries. There are no filling defects in the pulmonary yumiko ramiro. Normal size pulmonary artery. Mild atherosclerosis aorta. Intimal thickening and calcified plaq ue with no aneurysm or dissection. Heart size is very slightly enlarged. Moderate to large pericardia l effusion. Anterior diameter of the pericardial effusion is 2.2 cm. There is no RIGHT heart strain. RIGHT hilar lymph node measures 10 mm. Otherwise smaller bilateral lymphoid type tissue. Severe pulmonary hyperexpansion. There is severe bullous emphysema. Moderate segment area of groundgl ass attenuation in the inferior RIGHT upper lobe consistent with pneumonitis or pneumonia. With histo ry this also could be an area of pulmonary hemorrhage. Mild dependent changes at the lung bases bilat erally. No pericardial effusion or pneumothorax. Tricuspid regurgitation into the hepatic veins. Moderate-sized hiatal hernia. Cortical calcification upper pole RIGHT kidney. No mass identified. Negative adrenal glands. Marked increased in thoracic kyphosis. Mild anterior wedging of T6 and T7. CT/CT angio chest PE protcl [id number] IMPRESSION: 1. No pulmonary emboli. 2. Moderate-sized area of groundglass attenuation in the inferior RIGHT upper lobe. Differential includes pneumonitis, pulmonary hemorrhage and developing pn eumonia. 3. Severe bullous emphysema. 4. Mildly prominent but indeterminate RIGHT hilar lymph node. May be reactive. 5. Moderate to large pericardial effusion. 6. Mild anterior wedging of T6 and T7.
[2021-02-19] MEDS: iodixanol 320 mg/mL 100mL Btl IV (10:48)
[2021-02-19 11:47] VITALS: BP 138/71; PULSE 64; RESP 18; TEMP 36.6; O2SAT 100
--- NOTE | 2021-02-19 14:21 | DCPLANNER ---
architecture manager had message to schedule a follow up appointment for patient with pulmonology, at [facility]. architecture manager called [facility] services, spoke with Bettina. architecture manager gave clinic patients information, a follow up appointment was scheduled for Saturday, February 27, 2021 at 9:[address] Butterfield at [facility]. Mike carreno has [employer] insurance, so community case manager emailed patients information to the [place] with [employer] in the community, so that the authorization could be started for follow up appointment. architecture manager called patient to give patient the followup appointment. architecture manager spoke with patients , and gave her the follow up appointment information.
[2021-02-20 16:27] LABS: Coronavirus Test Green County Not Detected
--- NOTE | 2021-02-21 08:16 | PC.NURSE ---
left message for pt to call back to ER and receive COVID results
--- NOTE | 2021-02-21 08:36 | DCPLANNER ---
PTS CALLED BACK OF PT VERIFIED. RESULTS GIVEN TO .
--- NOTE | 2021-02-28 12:18 | DCPLANNER ---
Patient had a follow up appointment scheduled for 02.27.21 with [facility], with Dr. Butterfield - patient did attend appointment.
== END 2021-02-19 11:49 | disposition home or self-care (01) ==
PROVIDERS: Emergency Provider Family Medicine; PCP Family Medicine
DX: R04.2 Hemoptysis (principal); J44.0 Chronic obstructive pulmonary disease with (acute) lower respiratory infection; J18.9 Pneumonia, unspecified organism; Z79.82 Long term (current) use of aspirin; I25.10 Atherosclerotic heart disease of native coronary artery without angina pectoris; I10 Essential (primary) hypertension; E78.5 Hyperlipidemia, unspecified; F17.210 Nicotine dependence, cigarettes, uncomplicated
CPT/HCPCS: 71045; 71275; 80053; 85025; 85610; 85730; 87070; 87205; 87635; 93005; 99283; Q9967

== ENCOUNTER 2021-03-08 15:08 | Outpatient (CLI) | payer OTHER, SELFPAY ==
--- NOTE | 2021-03-08 15:45 | USCV_ITS ---
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
== END 2021-03-08 15:09 | disposition home or self-care (01) ==
PROVIDERS: PCP Family Medicine; Visit Provider Internal Medicine Cardiovascular Disease
DX: I73.9 Peripheral vascular disease, unspecified (principal)
CPT/HCPCS: 93923

== ENCOUNTER → 2021-03-28 12:29 | Outpatient (BNVA) | payer OTHER, SELFPAY | PROVIDERS: PCP Family Medicine; Visit Provider Internal Medicine Pulmonary Disease | DX: R06.00 Dyspnea, unspecified (principal) | CPT/HCPCS: 87635 ==

== ENCOUNTER 2021-04-02 13:08 | Outpatient (CLI) | payer OTHER, SELFPAY ==
[2021-04-02 13:51] VITALS: BP 139/86; BP 151/89
--- NOTE | 2021-04-02 13:58 | PFTS_ITS ---
Date of Study:04/02/21 Date of Dictation: MECHANICS: Forced vital capacity (FVC) is reduced. Forced expiratory volume in one second (FEV1) is reduced. FEV1/FVC is reduced. FLOW VOLUME LOOP: Reduced flow at all lung volumes with significant scooping. LUNG VOLUMES: Not measured DIFFUSING CAPACITY FOR CARBON MONOXIDE: Severely reduced. INTERPRETATION: The postbronchodilator spirometry is consistent with severe airflow obstruction. There is no significant postbronchodilator response. Lung volumes are not measured. Gas exchange (DLCO) is severely reduced. MTDD
--- NOTE | 2021-04-02 14:15 | USCV_ITS ---
Osbaldo Alvarado Age: 75 Gender: M : 1945 Exam Date: 04/02/2021 14:01 Ordering Phys: Gordy Briones MD Technologist: Shannon Szymanski [place] [facility] [place]ication: PERICARDIAL EFFUSION BP: 155 / 80 HR: 58 Rhythm: Sinus Technical Quality: Adequate MEASUREMENTS (Male / Female) Normal Values 2D ECHO LV Diastolic Diameter PLAX 3.9 cm 4.2 - 5.9 / 3.9 - 5.3 cm LV Systolic Diameter PLAX 2.3 cm LV Chamber Size 4.0 cm IVS Diastolic Thickness 0.9 cm 0.6 - 1.0 / 0.6 - 0.9 cm IVS Systolic Thickness 1.8 cm LVPW Diastolic Thickness 1.2 cm 0.6 - 1.0 / 0.6 - 0.9 cm LVPW Systolic Thickness 1.9 cm RV Chamber Size 2.9 cm LVOT Diameter 2.0 cm LV Ejection Fraction 2D Teich 72.5 % LV Ejection Fraction MOD 2C 64.1 % LV Ejection Fraction 2C AL 71.6 % LA Diameter 3.4 cm LA Width 3.3 cm LA Height 3.3 cm RA Width 3.4 cm RA Height 4.6 cm Aorta at Sinotubular Diameter 2.5 cm M-MODE LV Diastolic Diameter MM 4.0 cm 4.2 - 5.9 / 3.9 - 5.3 cm LV Systolic Diameter MM 2.9 cm LV Ejection Fraction MM Teich 54.9 % IVS Diastolic Thickness MM 1.2 cm 0.6 - 1.0 / 0.6 - 0.9 cm IVS Systolic Thickness MM 1.4 cm LVPW Diastolic Thickness MM 1.4 cm 0.6 - 1.0 / 0.6 - 0.9 cm LVPW Systolic Thickness MM 1.9 cm RV Diastolic Diameter MM 1.7 cm Aortic Annulus Diameter 3.2 cm LA Ao Ratio MM 1.4 MV E Point Septal Separation 0.3 cm DOPPLER AV Peak Velocity 141.0 cm/s LVOT Peak Velocity 95.0 cm/s AV Area Cont Eq vti 2.2 cm squared AV Area Cont Eq pk 2.1 cm squared MV Area PHT 3.0 cm squared Mitral E to A Ratio 1.0 MV E' Velocity 46.0 cm/s Mitral E to MV E' Ratio 11.0 Mitral E to LV E' Lateral Ratio 14.1 Mitral E to LV E' Septal Ratio 9.0 TR Peak Velocity 219.5 cm/s TR Peak Gradient 19.3 mmHg TR Mean Velocity 175.7 cm/s TR Mean Gradient 13.8 mmHg TR Velocity Time Integral 73.3 cm TV Peak E Velocity 46.0 cm/s Right Atrial Pressure 3.0 mmHg Pulmonary Artery Systolic Pressu 22.3 mmHg PV Peak Velocity 73.0 cm/s RV Acceleration Time 0.2 s RV Ejection Time 0.4 s RV AcT/ET 0.5 FINDINGS Left Ventricle Normal left ventricular cavity size. Normal left ventricular systolic function. No regional wall motion abnormalities. Left ventricular ejection fraction is estimated at 55 %. Grade I/IV diastolic dysfunction (abnormal relaxation filling pattern), normal to mildly elevated filling pressures. Right Ventricle The right ventricle is normal in size and function. Right Atrium The right atrium is normal in size. Left Atrium The left atrium is normal in size. Mitral Valve Moderately thickened mitral valve. Moderate mitral annular calcification. No mitral valve stenosis. Mild-moderate mitral valve regurgitation. Aortic Valve Structurally normal aortic valve without significant sclerosis or stenosis. There is no aortic regurgitation. Tricuspid Valve Structurally normal tricuspid valve without significant stenosis or regurgitation. Pulmonary artery systolic pressure is normal. Pulmonic Valve Structurally normal pulmonic valve without significant stenosis. There is no pulmonic regurgitation. Pericardium Normal pericardium without effusion. Aorta Normal ascending aorta dimension. CONCLUSIONS 1-Normal left ventricular cavity size. Normal left ventricular systolic function. No regional wall motion abnormalities. Left ventricular ejection fraction is estimated at 55 %. Grade I/IV diastolic dysfunction (abnormal relaxation filling pattern), normal to mildly elevated filling pressures. 2-Moderately thickened mitral valve. Moderate mitral annular calcification. No mitral valve stenosis. Mild-moderate mitral valve regurgitation. 3-There is no pericardial effusion. 4-Pulmonary artery systolic pressure is within normal limits. 5-Right atrial pressure is around 5 mm of mercury. 6-When compared to the prior echocardiogram dated 23 December 2018 there appeared to be mild to moderate mitral valve regurgitation now. Rajni Mirza MD (Electronically Signed) Final Date: 02 Apr 2021 18:59 S
== END 2021-04-02 13:09 | disposition home or self-care (01) ==
LOC: RT 13:10
PROVIDERS: PCP Family Medicine; Visit Provider Internal Medicine Pulmonary Disease
DX: I31.3 Pericardial effusion (noninflammatory) (principal); I05.9 Rheumatic mitral valve disease, unspecified
CPT/HCPCS: 93306; 94060; 94618; 94729; J7611

== ENCOUNTER → 2022-02-22 08:52 | Outpatient (BNVA) | payer OTHER, SELFPAY | PROVIDERS: PCP Family Medicine; Visit Provider Internal Medicine Cardiovascular Disease | DX: I25.10 Atherosclerotic heart disease of native coronary artery without angina pectoris (principal); I10 Essential (primary) hypertension; E78.5 Hyperlipidemia, unspecified; I73.9 Peripheral vascular disease, unspecified; I34.0 Nonrheumatic mitral (valve) insufficiency; J44.9 Chronic obstructive pulmonary disease, unspecified; F17.200 Nicotine dependence, unspecified, uncomplicated; Z79.82 Long term (current) use of aspirin | CPT/HCPCS: 99214 ==

== ENCOUNTER → 2022-03-15 09:04 | Outpatient (BNVA) | payer OTHER, SELFPAY | PROVIDERS: PCP Family Medicine; Visit Provider Internal Medicine Pulmonary Disease | DX: Z09 Encounter for follow-up examination after completed treatment for conditions other than malignant neoplasm (principal); R04.2 Hemoptysis; I31.3 Pericardial effusion (noninflammatory); I35.0 Nonrheumatic aortic (valve) stenosis; Z71.6 Tobacco abuse counseling; Z12.2 Encounter for screening for malignant neoplasm of respiratory organs; F17.210 Nicotine dependence, cigarettes, uncomplicated; I10 Essential (primary) hypertension; E78.5 Hyperlipidemia, unspecified | CPT/HCPCS: 99214 ==

== ENCOUNTER → 2022-09-13 10:16 | Outpatient (BNVA) | payer OTHER, SELFPAY | PROVIDERS: PCP Family Medicine; Visit Provider Internal Medicine Pulmonary Disease | DX: R06.09 Other forms of dyspnea (principal); Z71.6 Tobacco abuse counseling; Z12.2 Encounter for screening for malignant neoplasm of respiratory organs; R53.81 Other malaise; J43.9 Emphysema, unspecified; F17.210 Nicotine dependence, cigarettes, uncomplicated | CPT/HCPCS: 99214 ==

== ENCOUNTER 2022-10-09 11:22 | Outpatient (CLI) | payer OTHER, SELFPAY ==
--- NOTE | 2022-10-09 11:15 | CT_ITS ---
WS: [id number] LDCT LUNG CANCER SCREENING TECHNIQUE: Noncontrast CT of the chest with coronal and sagittal reformatted images. CLINICAL INFORMATION: smoker COMPARISON:CTA February 19, 2021 DLP: 83.29 mGy.cm DIvol: Mean CTDIvol: 1.60 (mGy) All CT scans at [facility] use at least one of these dose optimization techniques: automat ed exposure control; mA and/or kV adjustment per patient size (includes targeted exams where dose is matched to clinical indication); or iterative reconstruction. FINDINGS:Spiculated lesion LEFT upper lobe is new from previous measuring 9.7 mm. Additional spiculat ed lesion in the subpleural LEFT lower lobe measuring 7.6 mm. This is also new from previous. Additio nal slightly spiculated lesion in the lingula subpleural in location measuring 8 recommend. Further e valuation of these lesions recommended PET/CT. Subsegmental atelectasis LEFT lower lobe. Additional s mall irregular nodule measuring 6 mm best seen on the sagittal imaging in the super segment LEFT lowe r lobe Moderate chronic emphysematous changes. No acute pulmonary infiltrates. No focal pneumonia or pleural fluid. Previously described RIGHT upper lobe groundglass infiltrate has resolved. Aortic calcification. Coronary calcification. No mediastinal or hilar lymphadenopathy. No axillary ly mphadenopathy. Moderate pericardial effusion. This is similar in appearance to February 19, 2021. Moderate thoracic kyphosis. Hypertrophic changes with ankylosis in the lower thoracic spine. Chronic anterior wedging in the mid thoracic spine. CT/CT lung screening [id number] IMPRESSION: Multiple new noncalcified pulmonary nodules the most suspicious LEF T upper lobe measuring 10 mm with spiculation. Recommend further evaluation wit h PET/CT. LUNG-RADS: 4B-Suspicious FOLLOW UP: PET/CT recommended
== END 2022-10-09 11:23 | disposition home or self-care (01) ==
LOC: RAD 11:22
PROVIDERS: PCP Family Medicine; Visit Provider Internal Medicine Pulmonary Disease
DX: Z12.2 Encounter for screening for malignant neoplasm of respiratory organs (principal); F17.210 Nicotine dependence, cigarettes, uncomplicated
CPT/HCPCS: 71271

== ENCOUNTER 2023-02-11 11:20 | Inpatient (IN) | payer OTHER, SELFPAY ==
[2023-02-11] VITALS (60 sets, daily range): BP systolic 103–164; BP diastolic 40–98; PULSE 67–160; RESP 19–43; TEMP 36.8–38.7; O2SAT 89–99
--- NOTE | 2023-02-11 11:37 | XR_ITS ---
WS: [id number] Exam: XR chest 1V portable [id number] Date/Time of Exam: 02/11/2023 12:04 PM Reason For Exam: sob Comparison 02/19/2021. There is a densely consolidating pneumonia in the central left lung and lingula. There may be an unde rlying pulmonary mass in this region. Chronic interstitial changes in the right lung base. Changes of fibrosis and honeycombing in the upper lung zones. Pulmonary hyperinflation. Heart size top limits n ormal. No pneumothorax or pleural effusion. The mediastinum is normal in contour. Bony thorax is inta ct. Degenerative changes in both shoulders. Recommendations: If the patient does not respond to conservative management, contrast CT scanning of the chest should be considered for further workup. XR/XR chest 1V portable [id number] IMPRESSION: 1. Densely consolidated infiltrate in the central left lung and lingula. The po ssibility of an underlying mass in this region is not excluded. 2. Pulmonary hyperinflation with emphysematous changes and honeycombing in the upper lung zones.
[2023-02-11 11:38] LABS: ABG PCO2 38.8 mmHg (35-45); ABG PH Result 7.36 (7.35-7.45); Alveolar-Arterial Oxygen Gradi 4.6 mmHg (5-10); Arterial Blood Gas Hematocrit 35.7 % (42-52); Base Excess ABG -3.2 mmol/L (-2.0-2.0); Blood Gas Allen Test Pos; Blood Gas Operator Identificat WALCI; Blood Gas Sample Site Radial, left; Blood Gas Sample Type Arterial; Carboxyhemoglobin 2.3 %THgb (0.4-20.1); HGB O2 Sat 90.4 % (95-100); Ionized Calcium Level - ABG 1.3 mmol/L (1.1-1.4); Oxygen Device NC; Oxygen Saturation ABG 93.5; PO2 ABG 67.7 mmHg (80.0-100.0); Potassium Level - ABG 4.7 mmol/L (3.5-5.0); Total Hemoglobin 11.6 g/dL (14-18)
--- NOTE | 2023-02-11 11:41 | ECG_ITS ---
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 Measurements Intervals [place] Rate: 113 P: 89 SD: 164 QRS: 75 QRSD: 72 T: 89 QT: 266 QTc: 366 Interpretive Statements SINUS TACHYCARDIA WITH OCCASIONAL VENTRICULAR PREMATURE COMPLEXES LOW QRS VOLTAGE IN PRECORDIAL LEADS [QRS DEFLECTION < 1.0 mV IN CHEST LEADS] SEPTAL MYOCARDIAL INFARCTION , PROBABLY OLD [40+ ms Q WAVE IN V1/V2] Compared to ECG 02/19/2021 09:52:27 Ventricular premature complex(es) now present Low QRS voltage now present Myocardial infarct finding now present Sinus rhythm no longer present Electronically Signed On 02-12-2023 0:25:17 CDT by Faye Michel M.D. [email or web address]
--- NOTE | 2023-02-11 11:41 | W.ED.SOB ---
HPI - SOB/Dyspnea General: Chief Complaint: Shortness of Breath/Dyspnea Stated Complaint: SOB Time Seen by Provider: 02/11/23 11:37 Source: patient Mode of arrival: ambulatory Limitations: no limitations History of Present Illness: HPI Narrative: This patient with a known history of COPD presented to the emergency department by EMS because of increasing shortness of breath. Has a again history of COPD denies any history of heart failure or coronary artery disease. He states his has not been ill. He states he started getting more ill with cough some productive of occasional episodes of bloody sputum over the past several days. He apparently saw his doctor in the last 24 hours and was started on doxycycline. He states has been using his nebulizer without much improvement. He does not use oxygen at home. He denies known exposure to infectious disease recent COVID-19 etc. He states he has had influenza vaccine but not COVID-vaccine. Denies any recent travel. Denies any chest pain at this time. EMS gave him a single albuterol treatment and 125 mg of Solu-Medrol prior to arrival. Despite patient's denial of any heart disease review of his chart reveals he has a history of's coronary artery disease. MD elicited complaint: shortness of breath and cough Pertinent past history: COPD Timing: progressively worsening Known history of: COPD Associated symptoms: Reports hemoptysis; Deny abdominal pain, extremity pain, nausea, palpitations, syncope or vomiting Treatment prior to arrival: oxygen and bronchodilator Review of Systems Const: Reports: chills and body aches Eyes: Denies: change in vision ENMT: Denies: throat pain or odynophagia Card: Denies: palpitations or syncope Resp: Reports: dyspnea, productive cough, wheezing and hemoptysis GI: Denies: abdominal pain, nausea, vomiting or diarrhea : Denies: flank pain, difficulty urinating or dysuria Musc: Denies: neck pain, back pain, extremity pain or extremity swelling Skin/Breast: Denies: rash Neuro: Denies: headache(s), numbness in extremities or weakness in extremities PFSH ED PFSH: Medical History Arthritis Claudication COPD (chronic obstructive pulmonary disease) Coronary artery disease HTN (hypertension) Hyperlipidemia Mitral regurgitation PAD (peripheral artery disease) Rheumatic heart disease Surgical History Hx of knee surgery Family History Father Cancer Prostate CA COPD (chronic obstructive pulmonary disease) Stroke Mother Cancer Ovarian CA Hypertension Social History Smoking and tobacco status: current every day smoker (1 ppd) cigarettes Packs smoked per day: 1 Years cigarettes smoked: 60 Quit status (tobacco): has tried quititng Number of times tried to quit tobacco: 1 Second hand smoke exposure: Yes Smoking risk assessment/counseling performed?: Yes Alcohol intake: current Alcohol intake frequency: few times a week Lives independently: Yes Household members: spouse Housing: House Marital status: service: Yes Current occupational status: retired Pets and animals: Yes Current gender identity: Male Physical Exam Narrative: EXAM NARRATIVE: The patient has dyspnea with conversation. He does respond to questions with appropriate answers and is alert Const: COMMON NORMALS: average body habitus, patient oriented x3 and alert HENMT: COMMON NORMALS: normocephalic, Normal nasal mucous membranes and turbinates present, moist oral mucous membranes and oropharynx normal HEAD & SCALP: normocephalic FACE & SINUS: normal facial exam NOSE: Normal nasal mucous membranes and turbinates present Eye: COMMON NORMALS: Equal, round and reactive pupils present, EOMs intact bilaterally and conjunctivae normal CONJUNCTIVA: Yes conjunctivae normal PUPIL: Yes Equal, round and reactive pupils present Neck/C-Spine: COMMON NORMALS: full ROM, no JVD and No carotid bruits Chest: COMMONS NORMALS: normal inspection of the chest Resp: EFFORT & INSPECTION: Yes labored and Yes uses accessory muscles AUSCULTATION: rhonchi and diminished lung sounds Cardio: COMMON NORMALS: no JVD, regular rate, regular rhythm, S2 normal heart sound present, No murmurs present (Cardio) and Peripheral pulses 2+ throughout RATE: regular rate RHYTHM: regular rhythm HEART SOUNDS: S2 normal heart sound present PERIPHERAL PULSES: Peripheral pulses 2+ throughout GI: COMMON NORMALS: Normal to inspection, nondistended, normoactive bowel sounds present, Soft to palpation and non-tender PALPATION: Yes Soft to palpation : COMMON NORMALS: Yes no CVA tenderness BLADDER/KIDNEY EXAM: Yes no CVA tenderness Back/Pelvis: COMMON NORMALS: no CVA tenderness, thoracic and lumbar spine normal to inspection and no thoracic nor lumbar tenderness Extremity: COMMON NORMALS: normal to inspection, capillary refill normal, no calf tenderness and no pedal edema Neuro: COMMON NORMALS: patient oriented x3, moves all extremities and no focal motor deficits SENSORIUM/ORIENTATION: Yes alert CRANIAL NERVES: Yes CN normal except as noted Psych: COMMON NORMALS: mental status grossly normal Skin: COMMON NORMALS: no rashes or lesions noted, no wounds and turgor normal GENERAL SKIN EXAM: no rashes or lesions noted and turgor normal Course Reevaluation(s): Reevaluation #1: Prolonged DuoNeb has seemed to improve his work of breathing. He is moving air better. We will add magnesium to his regimen to see if that gives him some increased benefit as he is displaying some bronchospasm clinically. We will hold off on noninvasive ventilation or possible intubation at this time and follow his clinical course. Discussed with patient and spouse who is now present Time: 12:20 Reevaluation #2: Discussed findings required additional history from spouse. Discussed need for hospitalization. Time: 13:09 Consultations: Consultation #1: Discussed with Dr. Drew who agreed to accept the patient. Time: 13:09 Vital Signs: Vital signs: Vital Signs Temperature 101.6 F H 02/11/23 11:29 Pulse Rate 100 02/11/23 12:12 Respiratory Rate 29 H 02/11/23 11:45 Blood Pressure 164/79 02/11/23 11:29 Pulse Oximetry 93 02/11/23 11:45 Oxygen Delivery Me thod 02/11/23 11:45 Oxygen Flow Rate 5 02/11/23 11:45 MDM - SOB/Dyspnea Medical Decision Making Patient arrived by EMS with some evidence of increased work of breathing and what initially history suggests of progressive shortness of breath unresponsive to home treatment with productive sputum. Also was febrile on arrival. Strongly suggest lower respiratory infection superimposed on chronic COPD but will engage in a more extensive work-up to ensure no other etiologies of his current symptoms. Patient did improve did not require noninvasive ventilatory support while in the emergency department. He received prolonged DuoNeb as well as magnesium which and decrease his work of breathing. It was notable that he had a large left lingular pneumonia. There was some question of a on requested CT scan from last fall however discussion with his revealed that he had a subsequent pulmonology evaluation and PET scan which did not reveal any cancer subsequent to his CT scan last fall. He has initial troponin was slightly elevated as well as an elevation in his BNP likely indicative of underlying coronary disease and mild heart failure exacerbated by his current illness. COVID-19 as well as influenza test were negative in the emergency department. 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 Discussed this with patient and spouse who agreed. Consulted hospitalist who agreed to admit the patient. Differential Diagnosis Likely acute exacerbation of chronic obstructive airways disease, congestive heart failure and community acquired pneumonia Medical Records I reviewed the patient's medical records. CT scan from 2021 revealed a left lung spiculated lesion. Lab Data I reviewed the patient's lab results. 02/11/23 11:34 02/11/23 11:34 Labs/Radiology: Radiology Impressions Chest X-Ray 02/11/23 11:37 IMPRESSION: 1. Densely consolidated infiltrate in the central left lung and lingula. The possibility of an underlying mass in this region is not excluded. 2. Pulmonary hyperinflation with emphysematous changes and honeycombing in the upper lung zones. Laboratory Results WBC 18.5 10^3/uL (4.0-10.0) H 02/11/23 11:34 RBC 3.47 10^6/uL (4.1-5.3) L 02/11/23 11:34 Hgb 11.2 g/dL (11.7-16.6) L 02/11/23 11:34 Hct 31.8 % (42.0-52.0) L 02/11/23 11:34 MCV 91.6 fl (80-94) 02/11/23 11:34 MCH 32.3 pg (28.0-34.0) 02/11/23 11:34 MCHC 35.2 g/dL (30.0-36.0) 02/11/23 11:34 RDW 12.5 % (12.1-15.1) 02/11/23 11:34 Plt Count 253 10^3/cmm (130-400) 02/11/23 11:34 MPV 8.9 fL (7.4-10.4) 02/11/23 11:34 Lymph % (Auto) Not Reportable 02/11/23 11:34 [place] % (Auto) Not Reportable 02/11/23 11:34 Lymph # (Auto) Not Reportable 02/11/23 11:34 [place] # (Auto) Not Reportable 02/11/23 11:34 Total Counted 100 (0-100) 02/11/23 11:34 Atypical Lymphs % 0.0 % (0-5) 02/11/23 11:34 Absolute Neutrophils 16.1 10^3/cmm (1.4-6.5) H 02/11/23 11:34 Segmented Neutrophils 85 % 02/11/23 11:34 Abs Segm Neuts (Man) 15.7 10/cmm (1.6-7.1) H 02/11/23 11:34 Band Neutrophils 2.0 % 02/11/23 11:34 Abs Band Neuts (Man) 0.4 10^3/cmm (0.0-1.2) 02/11/23 11:34 Absolute Lymphocytes 1.5 10^3/cmm (1.2-3.4) 02/11/23 11:34 Lymphocytes (Manual) 8 % 02/11/23 11:34 Monocytes (Manual) 4.0 % 02/11/23 11:34 Absolute Monocytes 0.7 10^3/cmm (0.1-0.6) H 02/11/23 11:34 Eosinophils (Manual) 0 % 02/11/23 11:34 Absolute Eosinophils 0.0 10^3/cmm (0.0-0.7) 02/11/23 11:34 Basophils (Manual) 0.0 % 02/11/23 11:34 Absolute Basophils 0.0 10^3/cmm (0.0-0.2) 02/11/23 11:34 Metamyelocytes 1.0 % 02/11/23 11:34 Platelet Estimate Normal (Normal) 02/11/23 11:34 Specimen Type Arterial 02/11/23 11:27 Sample Site Radial, left 02/11/23 11:27 ABG pH 7.36 (7.35-7.45) 02/11/23 11:27 ABG pCO2 38.8 mmHg (35-45) 02/11/23 11:27 ABG pO2 67.7 mmHg (80.0-100.0) L 02/11/23 11:27 ABG HCO3 22.0 mmol/L (22-26) 02/11/23 11:27 ABG O2 Saturation 93.5 02/11/23 11:27 ABG Base Excess -3.2 mmol/L (-2.0-2.0) L 02/11/23 11:27 Philip Test Pos 02/11/23 11:27 A-a O2 Gradient 4.6 mmHg (5-10) L 02/11/23 11:27 Hematocrit 35.7 % (42-52) L 02/11/23 11:27 Hgb O2 Saturation 90.4 % (95-100) L 02/11/23 11:27 Carboxyhemoglobin 2.3 %THgb (0.4-20.1) 02/11/23 11:27 Methemoglobin 1.0 % (0.4-1.5) 02/11/23 11:27 Total Hemoglobin 11.6 g/dL (14-18) L 02/11/23 11:27 Sodium 116.0 mmol/L (131-143) L 02/11/23 11:27 Potassium 4.7 mmol/L (3.5-5.0) 02/11/23 11:27 Glucose 116.0 mg/dL (70-115) H 02/11/23 11:27 Ionized Calcium 1.3 mmol/L (1.1-1.4) 02/11/23 11:27 O2 Delivery Device Nc 02/11/23 11:27 O2 Liters/Min 5.0 % 02/11/23 11:27 Manager Air ID [place] 02/11/23 11:27 Sodium 116 mmol/L (136-145) L* 02/11/23 11:34 Potassium 4.9 mmol/L (3.5-5.1) 02/11/23 11:34 Chloride 84 mmol/L (98-107) L 02/11/23 11:34 Carbon Dioxide 21 mmol/L (22-29) L 02/11/23 11:34 Anion Gap 15.9 (5-19) 02/11/23 11:34 BUN 33 mg/dL (8-23) H 02/11/23 11:34 Creatinine 1.2 mg/dL (0.7-1.2) 02/11/23 11:34 GFR Calculation Not Reportable 02/11/23 11:34 Glucose 109 mg/dL (65-115) 02/11/23 11:34 Calculated Osmolality 250 mOsm/kg (285-295) L 02/11/23 11:34 Lactate 1.6 mmol/L (0.5-2.2) 02/11/23 11:34 Calcium 8.6 mg/dL (8.5-10.5) 02/11/23 11:34 Total Bilirubin 0.6 mg/dL (0.15-1.2) 02/11/23 11:34 AST 27 U/L (0-40) 02/11/23 11:34 ALT 21 U/L (0-41) 02/11/23 11:34 Alkaline Phosphatase 79 U/L (40-130) 02/11/23 11:34 Troponin T Baseline 67 ng/L (0-15) H 02/11/23 11:34 NT-Pro-B Natriuret Pep 2397 pg/mL (0-450) H 02/11/23 11:34 Total Protein 5.5 g/dL (6.6-8.7) L 02/11/23 11:34 Albumin 2.7 g/dL (3.5-5.2) L 02/11/23 11:34 Globulin 2.8 g/dL (1.3-4.6) 02/11/23 11:34 Influenza Type A Ag Negative (Negative) 02/11/23 11:54 Influenza Type B Ag Negative (Negative) 02/11/23 11:54 SARS-CoV-2 Ag (Rapid) negative (Negative) 02/11/23 11:54 EKG Data EKG 1: I personally reviewed and interpreted this EKG as follows: Interpretation: Contemporaneous review of EKG reveals a ventricular rate of 113 bpm. ND intervals normal. QRS duration is normal. Corrected QT intervals normal. Normal axis. Appears to be consistent with sinus tachycardia occasional unifocal PVCs. Some loss of anterior forces noted in the precordial leads suggestive of possible old anterior wall WA. No acute ST-T wave changes at this time. Discharge Plan Discharge Patient Disposition: Admitted As Inpatient Clinical Impression: Community acquired pneumonia, Acute exacerbation of chronic obstructive airways disease, Congestive heart failure, Hyponatremia Condition: Stable Prescriptions: No Action nitroglycerin [Nitrostat] 0.4 mg tablet, sublingual 0.4 mg SUBLINGUAL Q5M PRN (Reason: Chest Pain) rosuvastatin 5 mg tablet 2.5 mg PO DAILY albuterol sulfate [ProAir HFA] 90 mcg/actuation HFA aerosol inhaler 2 puff INHALATION Q6H PRN (Reason: Shortness Of Breath Or Wheezing) aspirin [Adult Low Dose Aspirin] 81 mg tablet,delayed release (DR/EC) 81 mg PO DAILY folic acid 800 mcg tablet 0.8 mg PO DAILY cholecalciferol (vitamin D3) 25 mcg (1,000 unit) capsule 1,000 unit PO DAILY multivitamin Tablet 1 tab PO DAILY furosemide [Lasix] 20 mg tablet 20 mg PO QAM PRN (Reason: Edema) terazosin 2 mg capsule 4 mg PO DAILY coenzyme Q10 [Co Q-10] 10 mg capsule 10 mg PO DAILY Spiriva Respimat 2.5 mcg/actuation mist 2 puff inhalation BID lisinopril 2.5 mg tablet 2.5 mg PO DAILY mirtazapine 30 mg tablet 60 mg PO BEDTIME quetiapine [Seroquel] 50 mg tablet 75 mg PO BEDTIME fluticasone propion-salmeterol [Advair Diskus] 500-50 mcg/dose blister with device 1 inh inhalation BID Qty: 60 5RF quercetin 500 mg Capsule 500 mg PO DAILY Referrals: Kaylene Veras MD [Primary Care Provider] - Coding Level of Care Code ED [employer] Assistant Department Head for Michael Jalloh
[2023-02-11] MEDS: ipratropium-albuterol 3 mL Neb 9 ML INHALATION (11:46)
[2023-02-11 11:52] LABS: Hematocrit 31.8 % (42.0-52.0); Hemoglobin 11.2 g/dL (11.7-16.6); Mean Corpuscular HGB Conc 35.2 g/dL (30.0-36.0); Mean Corpuscular Hemoglobin 32.3 pg (28.0-34.0); Mean Corpuscular Volume 91.6 fl (80-94); Mean Platelet Volume 8.9 fL (7.4-10.4); Platelet Count 253 10^3/cmm (130-400); Red Blood Count 3.47 10^6/uL (4.1-5.3); Red Cell Distribution Width 12.5 % (12.1-15.1); White Blood Count 18.5 10^3/uL (4.0-10.0)
--- NOTE | 2023-02-11 12:03 | PC.RESP ---
HOLD OFF ON BIPAP AT THIS TIME PER DR. LLANES
[2023-02-11] MEDS: cefTRIAXone 2,000 MG in sodium chloride 0.9% (plus) 50 ML 100 MG IV (12:10)
[2023-02-11] MEDS: sodium chloride 0.9% 500 ML IV (12:11)
[2023-02-11 12:19] LABS: Lactate (Lactic Acid level) 1.6 mmol/L (0.5-2.2)
[2023-02-11 12:25] LABS: Troponin(5th) Baseline 67 ng/L (0-15)
[2023-02-11 12:27] LABS: Slide Review Slide Review Perform
[2023-02-11 12:27] LABS: SARS Covid-2 Antigen negative (Negative)
[2023-02-11 12:28] LABS: Absolute Neutrophil 16.1 10^3/cmm (1.4-6.5); Absolute Segmented Neutrophil 15.7 10/cmm (1.6-7.1); Band Neutrophils Absolute 0.4 10^3/cmm (0.0-1.2); Eosinophils 0 %; Lymphocytes 8 %; Lymphocytes Absolute 1.5 10^3/cmm (1.2-3.4); Monocytes Absolute 0.7 10^3/cmm (0.1-0.6); Platelet Estimate Normal (Normal); Segmented Neutrophils 85 %; Total Cells Counted 100 (0-100)
[2023-02-11 12:29] LABS: Influenza A by IFA Negative (Negative); Influenza B by IFA Negative (Negative)
[2023-02-11 12:32] LABS: Alanine Aminotransferase 21 U/L (0-41); Albumin Level 2.7 g/dL (3.5-5.2); Alkaline Phosphatase 79 U/L (40-130); Anion Gap 15.9 (5-19); Aspartate Amino Transferase 27 U/L (0-40); Blood Urea Nitrogen 33 mg/dL (8-23); Calcium 8.6 mg/dL (8.5-10.5); Carbon Dioxide 21 mmol/L (22-29); Chloride 84 mmol/L (98-107); Globulin 2.8 g/dL (1.3-4.6); Glucose 109 mg/dL (65-115); NT Pro B Type Natriuretic Pept 2397 pg/mL (0-450); Osmolality Calculated 250 mOsm/kg (285-295); Potassium 4.9 mmol/L (3.5-5.1); Total Bilirubin 0.6 mg/dL (0.15-1.2); Total Protein 5.5 g/dL (6.6-8.7)
--- NOTE | 2023-02-11 12:32 | PC.NURSE ---
PT PLACED ON CONTINUOS NIBP, SPO2, AND CM
[2023-02-11 12:36] LABS: Sodium 116 mmol/L (136-145)
[2023-02-11] MEDS: magnesium sulfate premix 2 GM/50 ML PIGGYBACK IV (12:45)
--- NOTE | 2023-02-11 12:51 | PC.NURSE ---
VERIFIED MAGNESIUM DOSAGE RATE WITH DR. LLANES. DR LLANES GAVE VERBAL INSTRUCTION TO CONTINUE WITH ORDERED INFUSION RATE.
[2023-02-11] MEDS: FUROsemide 10 mg/mL SDV 4mL 40 MG IVP (13:10)
[2023-02-11] MEDS: acetaminophen 325 mg Tablet 650 MG PO (13:10)
--- NOTE | 2023-02-11 13:18 | PM.HP ---
Providers/Chief Complaint Primary Care Provider: Kaylene Veras MD Chief Complaint: SOB History of Present Illness Osbaldo Alvarado is a 77 year old male non obstructive CAD, mild PAD, HTN, HLD, chronic active smoker and COPD. Came in today with chief complaint of worsening shortness of breath which started last week and since then it has progressively worsened, he is also having cough with productive sputum, he was also febrile at home, denied any chest pain, palpitation, headache dizziness, abnormal sensations, abdominal pain nausea vomiting. X-ray chest: Showed : Densely consolidated infiltrate in the central left lung and lingula. The possibility of an underlying mass in this region is not excluded. EKG: Sinus rhythm with PVCs Pertinent labs: WBC 18.5, H&H 11.2/ 31.8 , PLT : 253 , serum sodium: 116 , serum potassium: 4.9 , BUN 33 serum creatinine 1.2 Troponin trend: 67-100-70 , proBNP 2397 , Rapid COVID and influenza negative Review of Systems General: Reports: 10 or more systems reviewed and unremarkable except in HPI and below Const: Denies: change in appetite or diaphoresis Card: Denies: palpitations, edema, swelling of feet/ankles, dyspnea on exertion, orthopnea or leg pain with exertion Resp: Reports: dyspnea; Denies: productive cough, wheezing or pain on inspiration GI: Denies: abdominal pain, nausea, vomiting, diarrhea or constipation : Denies: flank pain or difficulty urinating Musc: Denies: back pain, extremity pain or extremity swelling Neuro: Denies: headache(s), difficulty walking or confusion Medications/Allergies Home Medications Medication Instructions Recorded Confirmed Last Taken Type albuterol sulfate 90 mcg/actuation 2 puff inhalation Q6H PRN 01/07/20 02/11/23 Unknown History aerosol inhaler (ProAir HFA) Shortness Of Breath Or Wheezing aspirin 81 mg tablet,delayed 81 mg PO DAILY 01/07/20 02/11/23 02/10/23 History release (Adult Low Dose Aspirin) cholecalciferol (vitamin D3) 25 1,000 unit PO DAILY 01/07/20 02/11/23 02/10/23 History mcg (1,000 unit) capsule folic acid 800 mcg tablet 0.8 mg PO DAILY 01/07/20 02/11/23 02/10/23 History furosemide 20 mg tablet (Lasix) 20 mg PO QAM PRN Edema 01/07/20 02/11/23 Unknown History multivitamin 1 tab PO DAILY 01/07/20 02/11/23 02/10/23 History nitroglycerin 0.4 mg sublingual 0.4 mg sublingual Q5M PRN Chest 01/07/20 02/11/23 Unknown History tablet (Nitrostat) Pain rosuvastatin 5 mg tablet 2.5 mg PO DAILY 01/07/20 02/11/23 02/10/23 History terazosin 2 mg capsule 4 mg PO DAILY 10/23/20 02/11/23 02/10/23 History lisinopril 2.5 mg tablet 2.5 mg PO DAILY 02/27/21 02/11/23 02/10/23 History mirtazapine 30 mg tablet 60 mg PO BEDTIME 02/27/21 02/11/23 02/10/23 History quetiapine 50 mg tablet (Seroquel) 75 mg PO BEDTIME 02/27/21 02/11/23 02/10/23 History coenzyme Q10 10 mg capsule (Co 10 mg PO DAILY 05/18/21 02/11/23 02/10/23 History Q-10) tiotropium bromide 2.5 2 puff inhalation BID 05/18/21 02/11/23 02/10/23 History mcg/actuation mist for inhalation (Spiriva Respimat) fluticasone 500 mcg-salmeterol 50 1 inh inhalation BID #60 ea 11/06/22 02/11/23 02/10/23 Rx mcg/dose blistr powdr for inhalation (Advair Diskus) doxycycline hyclate 100 mg tablet 100 mg PO BID 02/11/23 02/11/23 02/10/23 History quercetin 500 mg capsule 500 mg PO DAILY 02/11/23 02/11/23 02/10/23 History Allergies Allergy/AdvReac Type Severity Reaction Status Date / Time Iodinated Contrast Media Allergy Unknown Unknown Verified 09/13/22 10:42 PFSH Acute PFSH: Medical History Arthritis Claudication COPD (chronic obstructive pulmonary disease) Coronary artery disease HTN (hypertension) Hyperlipidemia Mitral regurgitation PAD (peripheral artery disease) Rheumatic heart disease Surgical History Hx of knee surgery Family History Father Cancer Prostate CA COPD (chronic obstructive pulmonary disease) Stroke Mother Cancer Ovarian CA Hypertension Social History Smoking and tobacco status: current every day smoker (1 ppd) cigarettes Packs smoked per day: 1 Years cigarettes smoked: 60 Quit status (tobacco): has tried quititng Number of times tried to quit tobacco: 1 Second hand smoke exposure: Yes Smoking risk assessment/counseling performed?: Yes Alcohol intake: current Alcohol intake frequency: few times a week Lives independently: Yes Household members: spouse Housing: House Marital status: service: Yes Current occupational status: retired Pets and animals: Yes Current gender identity: Male Vitals/I&O/Wt Last Vital Signs Temp 101.6 F H 02/11/23 11:29 Pulse 100 02/11/23 12:12 Resp 29 H 02/11/23 11:45 BP 164/79 02/11/23 11:29 Pulse Ox 93 02/11/23 11:45 O2 Del Method 02/11/23 11:45 O2 Flow Rate 5 02/11/23 11:45 02/10/23 02/11/23 02/11/23 22:59 06:59 14:59 Intake Total 600 / 600 Balance 600 / 600 Physical Exam Const: COMMON NORMALS: patient oriented x3 HENMT: COMMON NORMALS: normocephalic and atraumatic Resp: COMMON NORMALS: clear to auscultation bilaterally AUSCULTATION: clear to auscultation bilaterally Cardio: COMMON NORMALS: regular rate, regular rhythm, S1 normal heart sound present, S2 normal heart sound present, No gallops present (Cardio), No murmurs present (Cardio), No rub (Cardio) and Peripheral pulses 2+ throughout RATE: regular rate RHYTHM: regular rhythm HEART SOUNDS: S1 normal heart sound present and S2 normal heart sound present PERIPHERAL PULSES: Peripheral pulses 2+ throughout GI: COMMON NORMALS: Normal to inspection, nondistended, normoactive bowel sounds present, Soft to palpation, non-tender, No hepatosplenomegaly present and no masses AUSCULTATION: Yes normoactive bowel sounds PALPATION: Yes Soft to palpation and Yes No hepatosplenomegaly present RECTAL EXAM: Yes deferred Extremity: COMMON NORMALS: no clubbing, cyanosis or edema and no pedal edema Neuro: COMMON NORMALS: patient oriented x3 Data 02/11/23 11:34 02/11/23 11:34 Micro: Microbiology 02/11/23 12:04 Blood Culture - Preliminary Blood SPECIMEN COLLECTED 02/11/23 11:59 Blood Culture - Preliminary Blood SPECIMEN COLLECTED A&P Assessment and plan (1) Community acquired pneumonia: (2) Hyponatremia: (3) Smoker: (4) Aortic stenosis, moderate: (5) COPD (chronic obstructive pulmonary disease): (6) HTN (hypertension): Qualifiers: Hypertension type: essential hypertension Qualified Code(s): I10 - Essential (primary) hypertension (7) Coronary artery disease: Qualifiers: Associated angina: without angina Coronary Disease-Associated Artery/Lesion type: [place] artery [place] vs. transplanted heart: [place] heart Qualified Code(s): I25.10 - Atherosclerotic heart disease of [place] coronary artery without angina pectoris (8) NSTEMI (non-ST elevated myocardial infarction): (9) Sepsis: Plan 77 year old male non obstructive CAD, mild PAD, HTN, HLD, chronic active smoker and COPD. Came in today with chief complaint of worsening shortness of breath which started last week and since then it has progressively worsened, he is also having cough with productive sputum, he was also febrile at home, denied any chest pain, palpitation, headache dizziness, abnormal sensations, abdominal pain nausea vomiting. Sepsis secondary to pneumonia: Patient meets sepsis criteria: Has elevated white cell count, fever, tachypneic, tachycardic, pneumonia as the source of infection, endorgan damage could be, elevated troponin, hyponatremia. X-ray chest: Showed : Densely consolidated infiltrate in the central left lung and lingula. The possibility of an underlying mass in this region is not excluded. EKG: Sinus rhythm with PVCs Rapid COVID and influenza negative Follow blood culture Urine culture Sputum Gram stain and culture MRSA PCR Urine Legionella antigen Bacterial antigen panel Currently started on broad-spectrum antibiotics Vanco and Zosyn. Hyponatremia: Possibility of SIADH in the presence of underlying pneumonia and COPD cannot be conclusively ruled Patient has denied chest pain, palpitation, headache dizziness, abnormal sensations, abdominal pain nausea vomiting. Admission serum sodium is 116 Follow TSH Urinalysis Random cortisol Serum osmolality Urine osmolality Has received hypertonic saline 100 cc one-time dose Monitor serum sodium every 4 hours Given the fact that the patient is noted to be severely symptomatic, will avoid aggressive correction, goal correction will be around 6 to 8 mEq in 24 hours. NSTEMI: Troponin trend: 100-70 , proBNP 2397 Patient has currently denied any significant chest pain Follow 2D echo Continue telemetry monitoring Continue aspirin and statin History of COPD: Continue DuoNebs Supplemental oxygen as needed CODE STATUS: Full code DVT prophylaxis on Lovenox Attestations Medical Necessity Statement*: Patient is to be in hospital management of sepsis. Anticipated length of stay greater than 2 midnights Critical Care Time: The high probability of a clinically significant, sudden or life threatening deterioration of the patient's [] system(s) required my full and direct attention, intervention and personal management. The critical care time is as shown. This time is in addition to time spent performing any reported procedures but includes the following: [x] Data and vital sign review and interpretation [x] Patient assessment, examination and intervention [x] Documentation [x] Medication orders and management Critical Care Time (min): 40 Coding Level of Care Code Critical Care >/= 30 minutes Diagnoses Community acquired pneumonia J18.9 Hyponatremia E87.1 Smoker F17.200 Aortic stenosis, moderate I35.0 COPD (chronic obstructive pulmonary disease) J44.9 HTN (hypertension) I10 Hypertension type: essential hypertension Coronary artery disease I25.10 Associated angina: without angina Coronary Disease-Associated Artery/Lesion type: [place] artery [place] vs. transplanted heart: [place] heart NSTEMI (non-ST elevated myocardial infarction) I21.4 Sepsis A41.9
[2023-02-11] MEDS: piperacillin-tazobactam 3.375 GM in sodium chloride 0.9% (plus) 50 ML IV ×2 (13:45→20:44)
--- NOTE | 2023-02-11 13:51 | ECG_ITS ---
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 Measurements Intervals [place] Rate: 102 P: 12 VT: 150 QRS: 36 QRSD: 76 T: 62 QT: 307 QTc: 400 Interpretive Statements SINUS TACHYCARDIA WITH FREQUENT VENTRICULAR PREMATURE COMPLEXES IN A BIGEMINAL PATTERN SEPTAL MYOCARDIAL INFARCTION , PROBABLY OLD [40+ ms Q WAVE IN V1/V2] Compared to ECG 02/11/2023 11:48:48 No significant changes Electronically Signed On 02-12-2023 0:52:13 CDT by Faye Michel M.D. [id number]
[2023-02-11 14:16] LABS: Sodium 118 mmol/L (136-145)
[2023-02-11 14:18] LABS: Troponin 5 2HR 100.5 ng/L (0-15)
[2023-02-11 14:19] LABS: Troponin 5 2HR Delta 33.5 ABS# (0-10)
[2023-02-11 14:35] LABS: Add Urine Microscopic? NO; Charge for UA Resulting for Rev
--- NOTE | 2023-02-11 14:43 | PC.NURSE ---
Arrived from ED via stretcher, transferred to bed via lift sheet. AO x4, presented with sob thats exacerbated with exertion
[2023-02-11 14:56] LABS: Bilirubin Urine Neg (Negative); Blood Urine Neg (Negative); Glucose Urine UA Norm (Normal); Ketones Urine 1+ (Negative); Leukocyte Esterase Urine Negative (Negative); Nitrate Urine Negative (Negative); Protein Urine Neg (Negative); Urine Appearance Clear (CLEAR); Urine Color Yellow (Yellow); Urobilinogen Urine Norm (Negative); pH Urine 5 (5-7)
--- NOTE | 2023-02-11 15:04 | PC.NURSE ---
Dr. Drew at bedside, approved drawing mag level for bigemeny pvc's, notify HCP of mag level and next Na level
--- NOTE | 2023-02-11 15:11 | USCV_ITS ---
Osbaldo Alvarado Age: 77 Gender: M : 1945 Exam Date: 02/11/2023 16:30 Ordering Phys: Joseph Drew MD Technologist: IVONNE [place] [facility] [place]: SHORTNESS OF BREATH, NSTEMI BP: 103 / 81 HR: 50 Rhythm: Sinus Technical Quality: Very technically difficult study MEASUREMENTS (Male / Female) Normal Values 2D ECHO LVOT Diameter 2.0 cm LV Ejection Fraction MOD 2C 73.9 % LV Ejection Fraction 2C AL 72.8 % LA Diameter 2.9 cm LA Width 3.7 cm LA Height 4.3 cm RA Width 4.4 cm RA Height 4.4 cm Aorta at Sinotubular Diameter 2.2 cm IVC Diameter 2.7 cm M-MODE Aortic Annulus Diameter 2.4 cm LA Ao Ratio MM 1.4 MV E Point Septal Separation 0.3 cm DOPPLER MV Peak Velocity 89.0 cm/s MV Area PHT 4.2 cm squared Mitral E to A Ratio 0.9 MV E' Velocity 88.0 cm/s Mitral E to LV E' Septal Ratio 6.6 Right Atrial Pressure 8.0 mmHg PV Peak Velocity 140.0 cm/s RV Acceleration Time 0.1 s RV Ejection Time 0.3 s RV AcT/ET 0.4 FINDINGS Left Ventricle Diffuse hypokinesia of the anteroseptal and septal segments. LV ejection fraction around 45 to 50%.mild left ventricular hypertrophy. Technically difficult study because of poor apical windows.Grade I/IV diastolic dysfunction (abnormal relaxation filling pattern), normal to mildly elevated filling pressures. Segmental wall motion is difficult because of the frequent ventricular arrhythmia during the study Right Ventricle Thickening of the right ventricular free wall. Possibly normally RV ejection fraction. Right Atrium Not well-visualized Left Atrium Not well-visualized Mitral Valve Some calcification was noted of the chordal structures .mild mitral annular calcification. Aortic Valve Moderate calcification of the aortic valve. The valve appears to be stenotic. Aortic valve Doppler studies were not performed Tricuspid Valve Mild tricuspid valve regurgitation. Pulmonic Valve Pulmonic valve not well visualized. Pericardium Appears to have at least moderate pericardial effusion mostly around the anterior and apical region Aorta Normal aortic annulus size. IVC Dilated IVC with normal respiratory variation. CONCLUSIONS Diffuse hypokinesia of the anteroseptal and septal segments. LV ejection fraction around 45 to 50%. Mild left ventricular hypertrophy. Grade I/IV diastolic dysfunction (abnormal relaxation filling pattern), normal to mildly elevated filling pressures. Segmental wall motion is difficult because of the frequent ventricular arrhythmia during the study. Stenotic aortic valve with moderate calcification. Valve area was not calculated. Mild mitral annular calcification. Mild tricuspid valve regurgitation. Moderate pericardial effusion mostly in the anterior and around the apical region Thickening of the i right ventricular free wall suggesting RV hypertrophy. Estimated RA pressure around 8 mmHg. Technically difficult study because of poor apical windows Compared to the study from 04/02/2021, the pericardial effusion and the wall motion abnormalities appear to be new Dr Faye Michel MD FACC (Electronically Signed) Final Date: 11 February 2023 23:23 S
[2023-02-11] MEDS: ipratropium 0.5 mg/2.5 mL Neb INHALATION ×2 (15:47→19:46)
[2023-02-11] MEDS: albuterol 2.5 mg/3 mL Neb INHALATION ×2 (15:47→19:46)
[2023-02-11 16:05] LABS: Magnesium 1.8 mg/dL (1.7-2.3)
--- NOTE | 2023-02-11 16:08 | PC.PHAR ---
Pharmacy to dose consultation on Vancomycin. With patient's current weight and renal function, a dose of 1250mg every 24 hours was entered for a predicted peak of 34.1 mcg/mL and trough of 11.05 mcg/mL. A trough will be drawn before the 4th dose if no major changes in patient's status which for now will be on @ 1315 Will continue to monitor the patient's levels and adjust accordingly. Please let us know if there is anything else that you need. Thanks, Davon Washington, Pharm.D
[2023-02-11] MEDS: vancomycin 1,250 MG/250 ML PIGGYBACK 250 MG IV (16:17)
--- NOTE | 2023-02-11 17:20 | ECG_ITS ---
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 Measurements Intervals [place] Rate: 97 P: 56 GA: 172 QRS: 20 QRSD: 86 T: 41 QT: 322 QTc: 409 Interpretive Statements SINUS RHYTHM WITH OCCASIONAL VENTRICULAR PREMATURE COMPLEXES SEPTAL MYOCARDIAL INFARCTION , PROBABLY OLD [40+ ms Q WAVE IN V1/V2] Compared to ECG 02/11/2023 13:51:50 Sinus tachycardia no longer present Myocardial infarct finding still present Electronically Signed On 02-12-2023 0:53:57 CDT by Faye Michel M.D. [id number]
[2023-02-11 18:18] LABS: Sodium 119 mmol/L (136-145); Troponin 5 6HR 70.76 ng/L (0-15)
[2023-02-11 18:20] LABS: Troponin 5 6HR Delta 3.76 ng/L (0-12)
[2023-02-11] MEDS: sodium chloride 3% 100 ML in empty flexible container 1 EACH 200 ML IV (18:46)
[2023-02-11] MEDS: budesonide 0.5 mg/2 mL Neb INHALATION (19:46)
[2023-02-11] MEDS: mirtazapine 30 mg Tablet 60 MG PO (21:00)
[2023-02-11 22:14] LABS: Sodium 123 mmol/L (136-145)
--- NOTE | 2023-02-11 22:31 | ECG_ITS ---
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 Measurements Intervals [place] Rate: 143 P: 0 [place]: 0 QRS: -9 QRSD: 84 T: 83 QT: 258 QTc: 399 Interpretive Statements ATRIAL FIBRILLATION WITH RAPID VENTRICULAR RESPONSE WITH ABERRANT CONDUCTION OR VENTRICULAR PREMATURE COMPLEXES ANTEROSEPTAL MYOCARDIAL INFARCTION , OF INDETERMINATE AGE [40+ ms Q WAVE IN V1-V4] Compared to ECG 02/11/2023 17:20:23 Aberrant conduction of supraventricular beat(s) now present Sinus rhythm no longer present Myocardial infarct finding still present Electronically Signed On 02-12-2023 0:35:12 CDT by Faye Michel M.D. [id number]
[2023-02-11 23:24] LABS: Thyroid Stimulating Hormone 0.29 uIU/mL (0.27-4.20)
[2023-02-11] MEDS: enoxaparin 80 mg/0.8 mL Syringe 70 MG SUBCUT (23:30)
[2023-02-11 23:45] LABS: D Dimer 2.29 ug/mIFEU (0-0.59)
[2023-02-12] VITALS (53 sets, daily range): BP systolic 91–141; BP diastolic 48–87; PULSE 89–145; RESP 19–39; TEMP 36.6–37.2; O2SAT 85–98
--- NOTE | 2023-02-12 00:14 | PC.NURSE ---
Patient started going into a different rhythm with HR anywhere between 130-160's. Obtained EKG(Afib w RVR) and called Dr. Monique about results. Informed Dr Monique that pt was asymptotic and is in no distress. Patient denies chest pain, SOB, not diaphoretic, and blood pressure was 107/90. Dr. Monique looked over patient's chart at this time and orders were obtained. New orders obtained to give Lovenox 70mg once, give an Amio bolus and start Amio drip, and obtain labs: D Dimer and TSH level. Orders were carried out. Around 23:25 Dr Michel with cardiology called and wanted to check the status of patient. Updated Dr Michel of patient status. No further orders provided at this time.
[2023-02-12 03:38] LABS: Basophils # 0.1 10^3/uL (0.0-0.1); Basophils % 0.4 %; Eosinophils # 0.1 10^3/uL (0.0-0.8); Eosinophils % 0.3 %; Hematocrit 32.5 % (42.0-52.0); Hemoglobin 11.4 g/dL (11.7-16.6); Lymphocytes # 0.5 10^3/uL (0.8-4.8); Lymphocytes % 2.4 %; Mean Corpuscular HGB Conc 35.1 g/dL (30.0-36.0); Mean Corpuscular Hemoglobin 32.7 pg (28.0-34.0); Mean Corpuscular Volume 93.1 fl (80-94); Mean Platelet Volume 9.4 fL (7.4-10.4); Monocytes # 1.1 10^3/uL (0.2-0.9); Monocytes % 5.5 %; Neutrophils % 87.2 %; Nucleated Red Blood Cells % 0 %; Platelet Count 194 10^3/cmm (130-400); Red Blood Count 3.49 10^6/uL (4.1-5.3); Red Cell Distribution Width 12.8 % (12.1-15.1); White Blood Count 20.4 10^3/uL (4.0-10.0)
[2023-02-12 04:05] LABS: Alanine Aminotransferase 21 U/L (0-41); Albumin Level 2.5 g/dL (3.5-5.2); Alkaline Phosphatase 79 U/L (40-130); Anion Gap 15.2 (5-19); Aspartate Amino Transferase 24 U/L (0-40); Blood Urea Nitrogen 34 mg/dL (8-23); Calcium 8.6 mg/dL (8.5-10.5); Carbon Dioxide 20 mmol/L (22-29); Chloride 91 mmol/L (98-107); Globulin 2.9 g/dL (1.3-4.6); Glucose 129 mg/dL (65-115); Magnesium 2.2 mg/dL (1.7-2.3); Osmolality Calculated 263 mOsm/kg (285-295); Potassium 4.2 mmol/L (3.5-5.1); Procalcitonin 2.92 ng/mL (0-0.5); Sodium 122 mmol/L (136-145); Total Bilirubin 0.4 mg/dL (0.15-1.2); Total Protein 5.4 g/dL (6.6-8.7)
[2023-02-12 04:16] LABS: Slide Review Slide Review Perform
[2023-02-12] MEDS: piperacillin-tazobactam 3.375 GM in sodium chloride 0.9% (plus) 50 ML IV ×3 (04:18→20:21)
--- NOTE | 2023-02-12 08:04 | PM.CONSULT ---
Providers/Reason For Consult Consulting Physician/Specialty*: Yury Buck MD/ Cardiology Reason for Consult*: Afib with RVR/ Pericardial effusion Requesting Physician: Dr Drew Attending Physician: Joseph Drew MD Primary Care Provider: Kaylene Veras MD History of Present Illness History of Present Illness Osbaldo Alvarado is a 77 year old male with history of non obstructive CAD, hypertension, has been admitted to the hospital with pneumonia and sepsis.Cardiology was consulted because he had mild troponin elevation and developed A-fib with RVR. Heart rates are uncontrolled. He is on amiodarone drip.Blood pressure is stable. He denies chest pain. However has shortness of breath. Also has been having significant coughing.His troponins initially were 67-100-70. In the hospital he went into afib with RVR. ECHO shows mild reduction of LV systolic function with EF of 45-50% and moderate sized pericardial effusion Review of Systems General: Reports: 10 or more systems reviewed and unremarkable except in HPI and below Const: Denies: change in appetite or diaphoresis Card: Denies: palpitations, edema, swelling of feet/ankles, dyspnea on exertion, orthopnea or leg pain with exertion Resp: Reports: dyspnea; Denies: productive cough, wheezing or pain on inspiration GI: Denies: abdominal pain, nausea, vomiting, diarrhea or constipation : Denies: flank pain or difficulty urinating Musc: Denies: back pain, extremity pain or extremity swelling Neuro: Denies: headache(s), difficulty walking or confusion Medications/Allergies Home Medications Medication Instructions Recorded Confirmed Last Taken Type albuterol sulfate 90 mcg/actuation 2 puff inhalation Q6H PRN 01/07/20 02/11/23 Unknown History aerosol inhaler (ProAir HFA) Shortness Of Breath Or Wheezing aspirin 81 mg tablet,delayed 81 mg PO DAILY 01/07/20 02/11/23 02/10/23 History release (Adult Low Dose Aspirin) cholecalciferol (vitamin D3) 25 1,000 unit PO DAILY 01/07/20 02/11/23 02/10/23 History mcg (1,000 unit) capsule folic acid 800 mcg tablet 0.8 mg PO DAILY 01/07/20 02/11/23 02/10/23 History furosemide 20 mg tablet (Lasix) 20 mg PO QAM PRN Edema 01/07/20 02/11/23 Unknown History multivitamin 1 tab PO DAILY 01/07/20 02/11/23 02/10/23 History nitroglycerin 0.4 mg sublingual 0.4 mg sublingual Q5M PRN Chest 01/07/20 02/11/23 Unknown History tablet (Nitrostat) Pain rosuvastatin 5 mg tablet 2.5 mg PO DAILY 01/07/20 02/11/23 02/10/23 History terazosin 2 mg capsule 4 mg PO DAILY 10/23/20 02/11/23 02/10/23 History lisinopril 2.5 mg tablet 2.5 mg PO DAILY 02/27/21 02/11/23 02/10/23 History mirtazapine 30 mg tablet 60 mg PO BEDTIME 02/27/21 02/11/23 02/10/23 History quetiapine 50 mg tablet (Seroquel) 75 mg PO BEDTIME 02/27/21 02/11/23 02/10/23 History coenzyme Q10 10 mg capsule (Co 10 mg PO DAILY 05/18/21 02/11/23 02/10/23 History Q-10) tiotropium bromide 2.5 2 puff inhalation BID 05/18/21 02/11/23 02/10/23 History mcg/actuation mist for inhalation (Spiriva Respimat) fluticasone 500 mcg-salmeterol 50 1 inh inhalation BID #60 ea 11/06/22 02/11/23 02/10/23 Rx mcg/dose blistr powdr for inhalation (Advair Diskus) doxycycline hyclate 100 mg tablet 100 mg PO BID 02/11/23 02/11/23 02/10/23 History quercetin 500 mg capsule 500 mg PO DAILY 02/11/23 02/11/23 02/10/23 History Allergies Allergy/AdvReac Type Severity Reaction Status Date / Time Iodinated Contrast Media Allergy Unknown Unknown Verified 09/13/22 10:42 Current Medications Generic Name Dose Route Start Last Admin Trade Name Freq PRN Reason Stop Dose Admin Albuterol Sulfate 2.5 mg 02/11/23 16:00 02/11/23 19:46 Albuterol 2.5 Mg/3 Ml Neb INHALATION 2.5 mg QID.RESPIRATORY KENN Administration Budesonide 0.5 mg 02/11/23 20:00 02/11/23 19:46 Budesonide 0.5 Mg/2 Ml Neb INHALATION 0.5 mg BID.RESPIRATORY KENN Administration Piperacillin Sod/Tazobactam 50 mls @ 12.5 mls/hr 02/11/23 13:15 02/12/23 04:18 Sod 3.375 gm/ Sodium Chloride IV 12.5 mls/hr Q8H KENN Administration Protocol Vancomycin/PEG/[place]/Lysine/Water 1,250 mg in 250 mls @ 250 mls/hr 02/11/23 16:15 02/11/23 16:17 Vancocin IV 250 mls/hr Q24H KENN Administration Ipratropium [place] 0.5 mg 02/11/23 16:00 02/11/23 19:46 Ipratropium 0.5 Mg/2.5 Ml Neb INHALATION 0.5 mg QID.RESPIRATORY KENN Administration Mirtazapine 60 mg 02/11/23 21:00 02/11/23 21:00 Mirtazapine 30 Mg Tablet PO 60 mg BEDTIME KENN Administration PFSH Acute PFSH: Medical History Arthritis Claudication COPD (chronic obstructive pulmonary disease) Coronary artery disease HTN (hypertension) Hyperlipidemia Mitral regurgitation PAD (peripheral artery disease) Rheumatic heart disease Surgical History Hx of knee surgery Family History Father Cancer Prostate CA COPD (chronic obstructive pulmonary disease) Stroke Mother Cancer Ovarian CA Hypertension Social History Smoking and tobacco status: current every day smoker (1 ppd) cigarettes Packs smoked per day: 1 Years cigarettes smoked: 60 Quit status (tobacco): has tried quititng Number of times tried to quit tobacco: 1 Second hand smoke exposure: Yes Smoking risk assessment/counseling performed?: Yes Alcohol intake: current Alcohol intake frequency: few times a week Lives independently: Yes Household members: spouse Housing: House Marital status: service: Yes Current occupational status: retired Pets and animals: Yes Current gender identity: Male Vitals/I&O/Wt Last Vital Signs Temp 97.9 F 02/12/23 04:00 Pulse 120 H 02/12/23 06:00 Resp 22 H 02/12/23 06:00 BP 141/83 02/12/23 06:00 Pulse Ox 92 02/12/23 06:00 O2 Del Method 02/11/23 20:00 O2 Flow Rate 3 02/11/23 20:00 FiO2 40 02/11/23 21:27 02/11/23 02/12/23 02/12/23 22:59 06:59 14:59 Intake Total 200 / 850 460.18 / 1310.18 Output Total 500 / 500 300 / 800 Balance -300 / 350 160.18 / 510.18 Weight last 48 hrs Weight 165 lb Weight 163 lb Physical Exam Narrative: GENERAL: Patient is alert, awake and oriented x3. [] NECK: No jugular vein distension. [] HEENT: No cyanosis. No icterus. No pallor. [] HEART:Tachycardic, irregularly irregular. LUNGS: Diminished air entry CENTRAL NERVOUS SYSTEM: Grossly nonfocal. [] EXTREMITIES: Lower extremities with 1+ edema bilaterally. Pulses palpable in the lower extremities, both dorsalis pedis and posterior tibial. [] Data 02/12/23 02:55 02/12/23 02:55 Micro: Microbiology 02/11/23 12:04 Blood Culture - Preliminary Blood SPECIMEN COLLECTED 02/11/23 11:59 Blood Culture - Preliminary Blood SPECIMEN COLLECTED A&P Assessment and plan (1) Sepsis: (2) Community acquired pneumonia: (3) Congestive heart failure: (4) Mitral regurgitation: (5) PAD (peripheral artery disease): (6) HTN (hypertension): Qualifiers: Hypertension type: essential hypertension Qualified Code(s): I10 - Essential (primary) hypertension (7) COPD (chronic obstructive pulmonary disease): (8) Coronary artery disease: Qualifiers: Coronary Disease-Associated Artery/Lesion type: [place] artery [place] vs. transplanted heart: [place] heart Associated angina: without angina Qualified Code(s): I25.10 - Atherosclerotic heart disease of [place] coronary artery without angina pectoris (9) Atrial fibrillation: Plan Patient's respiratory failure is multifactorial. Troponin elevation likely secondary to demand ischemia however patient does have mild reduction in LV systolic function. It can happen and sepsis. Once patient is stable, can consider stress test. Patient is in A-fib with RVR. Continue amiodarone. Blood pressure is stable. We will start metoprolol 25 mg twice daily and will uptitrate based on response. Continue anticoagulation with enoxaparin. Pericardial effusion is moderate in size. Once patient is stable, can repeat limited echocardiogram. Thank you for involving us with care of this patient. We will continue to follow. Please call with questions. Consult Attestations Medical Necessity Statement: Care expected to cross 2midnights. Coding Level of Care Code Acute Code for [facility] Fwd Diagnoses Sepsis A41.9 Community acquired pneumonia J18.9 Congestive heart failure I50.9 Mitral regurgitation I34.0 PAD (peripheral artery disease) I73.9 HTN (hypertension) I10 Hypertension type: essential hypertension COPD (chronic obstructive pulmonary disease) J44.9 Coronary artery disease I25.10 Coronary Disease-Associated Artery/Lesion type: [place] artery [place] vs. transplanted heart: [place] heart Associated angina: without angina Atrial fibrillation I48.91
[2023-02-12] MEDS: budesonide 0.5 mg/2 mL Neb INHALATION ×2 (08:33→20:33)
[2023-02-12] MEDS: albuterol 2.5 mg/3 mL Neb INHALATION ×2 (08:33→11:20)
[2023-02-12] MEDS: ipratropium 0.5 mg/2.5 mL Neb INHALATION ×4 (08:33→20:31)
[2023-02-12] MEDS: atorvastatin 40 mg Tablet 20 MG PO (08:40)
[2023-02-12] MEDS: metoprolol tartrate 25 mg Tablet PO (08:41)
[2023-02-12] MEDS: multivitamin therapeutic Tablet 1 TAB PO (08:41)
[2023-02-12] MEDS: lisinopril 2.5 mg Tablet PO (08:41)
[2023-02-12] MEDS: cholecalciferol (vitamin D3) 1,000 unit Tablet 1000 UNIT PO (08:41)
[2023-02-12] MEDS: aspirin 81 mg EC Tablet PO (08:41)
--- NOTE | 2023-02-12 11:50 | CT_ITS ---
WS: [id number] CT CHEST TECHNIQUE: Contrast enhanced CT of the chest with coronal and sagittal reformatted images. CLINICAL INFORMATION: Densely consolidated infiltrate in the central left lung COMPARISON: CT lung screening October 09, [address] November 05, 2022 DLP: 416.[address] scans at [facility] use at least one of these dose optimization techniques: automated e xposure control; mA and/or kV adjustment per patient size (includes targeted exams where dose is matc hed to clinical indication); or iterative reconstruction. FINDINGS: Advanced chronic emphysematous changes. Small LEFT and tiny RIGHT pleural effusions with compressive atelectasis in the LEFT greater than RIGHT lower lobes. Patchy airspace infiltrates about the LEFT hi lum extending into the LEFT upper lobe. Recommend correlation for pneumonia. This is new from the curtis or examination. Previously described spiculated nodules in the LEFT lung were reported to be below th e threshold on the prior PET/CT. These are partially obscured today by the LEFT lung infiltrate/effus ion Normal caliber thoracic aorta. Aortic calcification. Proximal main pulmonary arteries appear normal. Moderate pericardial effusion similar to the prior studies. Adrenal glands are normal. Marked distent ion of the stomach with air-fluid level partially visualized. Hypertrophic changes thoracic spine. Th ere is chronic anterior wedging. Mild to moderate thoracic kyphosis. No mediastinal or hilar lymphade nopathy. Coronary calcification. CT/CT chest w con* [id number] IMPRESSION: 1. LEFT hilar airspace infiltrate extending into the LEFT upper lobe is new fr om the prior examinations. Recommend correlation for pneumonia and follow-up to resolution. 2. Advanced chronic emphysematous changes. 3. Small LEFT and tiny RIGHT pleural effusions with slight compressive atelect asis in the LEFT greater than RIGHT lower lobes. 4. Moderate pericardial effusion unchanged. 5. No mediastinal or hilar lymphadenopathy. 6. Previously described spiculated pulmonary nodules in the LEFT lung are part ially obscured today by the LEFT upper lobe infiltrate and LEFT lower lobe pleu ral effusion with compressive atelectasis 7. Marked distention of the stomach with air-fluid level partially visualized.
[2023-02-12 12:18] LABS: Sodium 117 mmol/L (136-145)
[2023-02-12] MEDS: diphenhydrAMINE 50 mg/mL SDV 1mL 25 MG IVP (13:07)
[2023-02-12] MEDS: iohexol 350 mg/mL 500 mL Btl (per mL) IV (14:01)
--- NOTE | 2023-02-12 14:08 | PM.PN ---
Subjective Subjective: Patient was seen and examined this morning, went into A-fib with RVR last night, had to be started on amiodarone drip, which was later turned off by cardiology this morning, has been on p.o. metoprolol. also received 1 dose of therapeutic Lovenox. Post 100 cc of hypertonic saline serum sodium went up as high to 123, but has subsequently trended down, requiring the need for more hypertonic saline use.2D echo results have been appreciated. Medications: Medication Review Details: Generic Name Dose Route Start Last Admin Trade Name Miriam PRN Reason Stop Dose Admin Aspirin 81 mg 02/12/23 09:00 02/12/23 08:41 Aspirin 81 Mg Ec Tablet PO 81 mg DAILY KENN Administration Atorvastatin [place] um 20 mg 02/12/23 09:00 02/12/23 08:40 Atorvastatin 40 Mg Tablet PO 20 mg DAILY KENN Administration Budesonide 0.5 mg 02/11/23 20:00 02/12/23 08:33 Budesonide 0.5 M g/2 Ml Neb INHALATION 0.5 mg BID.RESPIRATORY S CH Administration Piperacillin Sod/T azobactam 50 mls @ 12.5 mls /hr 02/11/23 13:15 02/12/23 13:08 Sod 3.375 gm/ So dium Chloride IV 12.5 mls/hr Q8H KENN Administration Protocol Vancomycin/PEG/NAD A/Lysine/Water 1,250 mg in 250 m ls @ 250 mls/hr 02/11/23 16:15 02/11/23 16:17 Vancocin IV 250 mls/hr Q24H KENN Administration Ipratropium [place] 0.5 mg 02/11/23 16:00 02/12/23 11:21 Ipratropium 0.5 Mg/2.5 Ml Neb INHALATION 0.5 mg QID.RESPIRATORY S CH Administration Levalbuterol HCl 1.25 mg 02/12/23 12:00 02/12/23 11:47 Levalbuterol 1.2 5 Mg/3 Ml Neb INHALATION Not Given QID.RESPIRATORY S CH Lisinopril 2.5 mg 02/12/23 09:00 02/12/23 08:41 Lisinopril 2.5 M g Tablet PO 2.5 mg DAILY KENN Administration Metoprolol Tartrat e 25 mg 02/12/23 09:00 02/12/23 08:41 Metoprolol Tartr ate 25 Mg Tablet PO 25 mg BID@0900,2100 KENN Administration Mirtazapine 60 mg 02/11/23 21:00 02/11/23 21:00 Mirtazapine 30 M g Tablet PO 60 mg BEDTIME KENN Administration Multivitamins Ther apeutic 1 tab 02/12/23 09:00 02/12/23 08:41 Multivitamin The rapeutic Tablet PO 1 tab DAILY KENN Administration Non-Formulary Medi cation 10 mg 02/12/23 09:00 02/12/23 09:46 Coenzyme Q10 [Co Q-10] PO Not Given DAILY KENN Non-Formulary Medi cation 0.8 mg 02/12/23 09:00 02/12/23 09:46 Folic Acid PO Not Given DAILY KENN Terazosin HCl 4 mg 02/12/23 09:00 02/12/23 09:45 Terazosin 1 Mg C apsule PO 4 mg DAILY KENN Administration Vitamin D 1,000 unit 02/12/23 09:00 02/12/23 08:41 Cholecalciferol (Vitamin D3) 1,000 Unit Tablet PO 1,000 unit DAILY KENN Administration Vitals/I&O/Wt Last Vital Signs Temp 97.9 F 02/12/23 04:00 Pulse 112 H 02/12/23 11:42 Resp 24 H 02/12/23 11:26 BP 132/76 02/12/23 09:00 Pulse Ox 96 02/12/23 11:26 O2 Del Method 02/12/23 11:26 O2 Flow Rate 4 02/12/23 11:26 FiO2 40 02/11/23 21:27 02/11/23 02/12/23 02/12/23 22:59 06:59 14:59 Intake Total 200 / 850 460.18 / 1310.18 50 / 50 Output Total 500 / 500 300 / 800 Balance -300 / 350 160.18 / 510.18 50 / 50 Weight last 48 hrs Weight 74.843 kg Weight 73.936 kg Physical Exam Const: COMMON NORMALS: patient oriented x3 HENMT: COMMON NORMALS: normocephalic and atraumatic HEAD & SCALP: normocephalic and atraumatic Resp: COMMON NORMALS: normal respiratory effort OTHER: Diminished air entry bilateral Cardio: COMMON NORMALS: regular rate, regular rhythm, S1 normal heart sound present, S2 normal heart sound present, No gallops present (Cardio), No murmurs present (Cardio), No rub (Cardio) and Peripheral pulses 2+ throughout RATE: regular rate RHYTHM: regular rhythm HEART SOUNDS: S1 normal heart sound present and S2 normal heart sound present PERIPHERAL PULSES: Peripheral pulses 2+ throughout GI: COMMON NORMALS: Normal to inspection, nondistended, normoactive bowel sounds present, Soft to palpation, non-tender, No hepatosplenomegaly present and no masses AUSCULTATION: Yes normoactive bowel sounds PALPATION: Yes Soft to palpation and Yes No hepatosplenomegaly present RECTAL EXAM: Yes deferred Extremity: COMMON NORMALS: no clubbing, cyanosis or edema and no pedal edema Neuro: COMMON NORMALS: patient oriented x3 Data 02/12/23 02:55 02/12/23 11:50 Micro: Microbiology 02/11/23 11:59 Blood Culture - Preliminary Blood NEGATIVE TO DATE 02/11/23 12:04 Blood Culture - Preliminary Blood NEGATIVE TO DATE A&P Assessment and plan (1) Community acquired pneumonia: (2) Hyponatremia: (3) Smoker: (4) Aortic stenosis, moderate: (5) COPD (chronic obstructive pulmonary disease): (6) HTN (hypertension): Qualifiers: Hypertension type: essential hypertension Qualified Code(s): I10 - Essential (primary) hypertension (7) Coronary artery disease: Qualifiers: Associated angina: without angina Coronary Disease-Associated Artery/Lesion type: [place] artery [place] vs. transplanted heart: [place] heart Qualified Code(s): I25.10 - Atherosclerotic heart disease of [place] coronary artery without angina pectoris (8) NSTEMI (non-ST elevated myocardial infarction): (9) Sepsis: Plan 77 year old male non obstructive CAD, mild PAD, HTN, HLD, chronic active smoker and COPD. Came in today with chief complaint of worsening shortness of breath which started last week and since then it has progressively worsened, he is also having cough with productive sputum, he was also febrile at home, denied any chest pain, palpitation, headache dizziness, abnormal sensations, abdominal pain nausea vomiting. Sepsis secondary to pneumonia: Patient meets sepsis criteria: Has elevated white cell count, fever, tachypneic, tachycardic, pneumonia as the source of infection, endorgan damage could be, elevated troponin, hyponatremia. X-ray chest: Showed : Densely consolidated infiltrate in the central left lung and lingula. The possibility of an underlying mass in this region is not excluded. CT chest with contrast: LEFT hilar airspace infiltrate extending into the LEFT upper lobe is new from the prior examinations. Recommend correlation for pneumonia and follow-up to resolution.Small LEFT and tiny RIGHT pleural effusions. EKG: Sinus rhythm with PVCs Rapid COVID and influenza negative Blood culture Urine culture Sputum Gram stain and culture MRSA PCR Urine Legionella antigen Bacterial antigen panel Currently started on broad-spectrum antibiotics Vanco and Zosyn. Hyponatremia: Possibility of SIADH in the presence of underlying pneumonia and COPD cannot be conclusively ruled Patient has denied chest pain, palpitation, headache dizziness, abnormal sensations, abdominal pain nausea vomiting. Admission serum sodium is 116 Follow TSH Urinalysis Random cortisol Serum osmolality Urine osmolality Has received hypertonic saline 300 cc 3% Monitor serum sodium every 4 hours Given the fact that the patient is noted to be severely symptomatic, will avoid aggressive correction, goal correction will be around 6 to 8 mEq in 24 hours. NSTEMI: Troponin trend: 67-100-70 , proBNP 2397 Patient has currently denied any significant chest pain 2D echo: Diffuse hypokinesia of the anteroseptal and septal segments.LV ?ejection fraction around 45 to 50%. Mild left ventricular hypertrophy.?Grade I/IV diastolic dysfunction (abnormal relaxation fillingpattern), normal to mildly elevated filling pressures.??Segmental wall motion is difficult because of the frequent?ventricular arrhythmia during the study.Stenotic aortic valve with moderate calcification.Valve area was not calculated.Mild mitral annular calcification.?Mild tricuspid valve regurgitation. Moderate pericardial effusion mostly in the anterior and around ?the apical region Continue telemetry monitoring Continue aspirin and statin A-fib with RVR: New diagnosed A-fib with RVR CHADS-VASc: 4 Initially started on amiodarone drip, has been discontinued Currently on p.o. metoprolol On therapeutic anticoagulation with Lovenox Moderate pericardial effusion: Cardiology on board, possibly serial echo follow-up HFrEF : Newly diagnosed heart failure with mildly reduced ejection fraction. 2D echo results appreciated. Currently on metoprolol Cardiology on board History of COPD: Continue DuoNebs Supplemental oxygen as needed CODE STATUS: Full code DVT prophylaxis on Lovenox Attestations Medical Necessity Statement*: Needs to be in hospital management of sepsis. Critical Care Time: The high probability of a clinically significant, sudden or life threatening deterioration of the patient's [] system(s) required my full and direct attention, intervention and personal management. The critical care time is as shown. This time is in addition to time spent performing any reported procedures but includes the following: [x] Data and vital sign review and interpretation [x] Patient assessment, examination and intervention [x] Documentation [x] Medication orders and management Critical Care Time (min): 50 Coding Level of Care Code Critical Care >/= 30 minutes Diagnoses Community acquired pneumonia J18.9 Hyponatremia E87.1 Smoker F17.200 Aortic stenosis, moderate I35.0 COPD (chronic obstructive pulmonary disease) J44.9 HTN (hypertension) I10 Hypertension type: essential hypertension Coronary artery disease I25.10 Associated angina: without angina Coronary Disease-Associated Artery/Lesion type: [place] artery [place] vs. transplanted heart: [place] heart NSTEMI (non-ST elevated myocardial infarction) I21.4 Sepsis A41.9
[2023-02-12] MEDS: levofloxacin-dextrose 5 % 750 MG/150 ML PREMIX 100 MG IV (14:38)
--- NOTE | 2023-02-12 15:27 | PC.NURSE ---
HR afib 130s and hits 140s, Dr. Burdick advised to monitor for now
[2023-02-12] MEDS: acetylcysteine 200 mg/mL MDV 10 mL 100 MG INHALATION ×2 (15:51→20:32)
[2023-02-12] MEDS: levalbuterol 1.25 mg/3 mL Neb INHALATION ×2 (15:52→20:31)
[2023-02-12 16:15] LABS: Sodium 117 mmol/L (136-145)
[2023-02-12] MEDS: vancomycin 1,250 MG/250 ML PIGGYBACK 250 MG IV (16:27)
[2023-02-12] MEDS: guaiFENesin 600 mg Tablet 1200 MG PO (16:52)
--- NOTE | 2023-02-12 17:05 | PC.NURSE ---
Report received from MARIANA Contreras. Pt on BiPap at 40%. Lung sounds very coarse. 3%Sodium chloride infusing at 30ml/hr in CVL. Two peripheral IVs noted.
--- NOTE | 2023-02-12 18:36 | PM.ACPR ---
Acute Procedures Central Line Placement: Right Femoral: Time out performed: Yes Patient placed on monitor/pulse ox: Yes MD prep: mask, gown and gloves Central line prep: Chlorhexidine scrub and sterile drapes applied Local anesthesia used: lidocaine 1% Amount of anesthesia used (ml): 10 Ultrasound used for placement: Yes Central line lumen inserted: triple Post procedure: sutured in place, good blood return, all ports aspirated, flushed, capped and sterile dressing applied Patient tolerated procedure: well and no complications Complications: none
[2023-02-12] MEDS: albumin 25 G/100 ML BAG 60 G IV (19:26)
[2023-02-12 19:56] LABS: Sodium 118 mmol/L (136-145)
[2023-02-12] MEDS: sodium chloride 3% 100 ML in empty flexible container 1 EACH 200 ML IV (20:20)
[2023-02-12] MEDS: enoxaparin 80 mg/0.8 mL Syringe 70 MG SUBCUT (20:21)
[2023-02-12 22:25] LABS: Sodium 118 mmol/L (136-145)
[2023-02-12] MEDS: FUROsemide 10 mg/mL SDV 2mL 20 MG IVP (23:33)
[2023-02-12] MEDS: FLEXIBLE CONTAINER IV (23:34)
[2023-02-12] MEDS: SODIUM CHLORIDE 3% IV (23:34)
[2023-02-13] VITALS (38 sets, daily range): BP systolic 118–161; BP diastolic 44–87; PULSE 64–98; RESP 18–45; TEMP 36.7–37.1; O2SAT 88–99
[2023-02-13] MEDS: albumin 25 G/100 ML BAG 60 G IV ×3 (01:30→18:15)
[2023-02-13 03:47] LABS: Basophils % 0.2 %; Eosinophils % 0.2 %; Hematocrit 28.1 % (42.0-52.0); Hemoglobin 9.7 g/dL (11.7-16.6); Lymphocytes # 0.5 10^3/uL (0.8-4.8); Lymphocytes % 2.8 %; Mean Corpuscular HGB Conc 34.5 g/dL (30.0-36.0); Mean Corpuscular Hemoglobin 32.3 pg (28.0-34.0); Mean Corpuscular Volume 93.7 fl (80-94); Mean Platelet Volume 9.3 fL (7.4-10.4); Monocytes # 0.7 10^3/uL (0.2-0.9); Monocytes % 3.5 %; Neutrophils # 17.64 10^3/uL (1.8-7.7); Neutrophils % 92.5 %; Nucleated Red Blood Cells % 0 %; Platelet Count 180 10^3/cmm (130-400); White Blood Count 19.1 10^3/uL (4.0-10.0)
[2023-02-13 04:06] LABS: Alanine Aminotransferase 55 U/L (0-41); Albumin Level 2.9 g/dL (3.5-5.2); Alkaline Phosphatase 128 U/L (40-130); Anion Gap 15.3 (5-19); Aspartate Amino Transferase 65 U/L (0-40); Blood Urea Nitrogen 49 mg/dL (8-23); Calcium 8.6 mg/dL (8.5-10.5); Carbon Dioxide 20 mmol/L (22-29); Chloride 90 mmol/L (98-107); Globulin 2.5 g/dL (1.3-4.6); Glucose 160 mg/dL (65-115); Magnesium 2.2 mg/dL (1.7-2.3); Osmolality Calculated 268 mOsm/kg (285-295); Potassium 4.3 mmol/L (3.5-5.1); Sodium 121 mmol/L (136-145); Total Bilirubin 0.3 mg/dL (0.15-1.2); Total Protein 5.4 g/dL (6.6-8.7)
[2023-02-13] MEDS: piperacillin-tazobactam 3.375 GM in sodium chloride 0.9% (plus) 50 ML IV ×3 (04:27→21:11)
[2023-02-13] MEDS: FUROsemide 10 mg/mL SDV 2mL 20 MG IVP (06:20)
--- NOTE | 2023-02-13 07:08 | XR_ITS ---
WS: [id number] Exam: XR KUB portable [id number] Date/Time of Exam: 02/13/2023 7:28 AM Reason For Exam: abdominal discomfort Prominent air gastrectasis noted. No bowel obstruction or pneumoperitoneum. There is gas in both larg e and small bowel loops. Moderate amount stool in the rectum. No sign of organ enlargement. Right pel sury central line noted. Moderate degenerative changes of the lumbar spine. XR/XR KUB portable [id number] IMPRESSION: 1. Prominent air gastrectasis. 2. No acute bowel obstruction or pneumoperitoneum.
[2023-02-13] MEDS: acetylcysteine 200 mg/mL MDV 10 mL 100 MG INHALATION ×5 (08:39→23:55)
[2023-02-13] MEDS: levalbuterol 1.25 mg/3 mL Neb INHALATION ×5 (08:40→23:55)
[2023-02-13] MEDS: budesonide 0.5 mg/2 mL Neb INHALATION ×2 (08:40→19:57)
[2023-02-13] MEDS: ipratropium 0.5 mg/2.5 mL Neb INHALATION ×5 (08:40→23:55)
[2023-02-13] MEDS: metoprolol tartrate 25 mg Tablet PO (09:23)
[2023-02-13] MEDS: enoxaparin 80 mg/0.8 mL Syringe 70 MG SUBCUT ×2 (09:24→20:22)
[2023-02-13 09:43] LABS: Sodium 122 mmol/L (136-145)
--- NOTE | 2023-02-13 11:06 | CT_ITS ---
WS: [id number] CT NECK TECHNIQUE: Contrast-enhanced CT of the neck with coronal and sagittal reformatted images. CLINICAL INFORMATION: DYSPHAGIA COMPARISON: None. DLP: 977.[address] scans at [facility] use at least one of these dose optimization techniques: automated e xposure control; mA and/or kV adjustment per patient size (includes targeted exams where dose is matc hed to clinical indication); or iterative reconstruction. FINDINGS: Normal salivary glands. Normal posterior nasopharynx. Normal parapharyngeal fat. Mastoid air cells ar e well aerated. Paranasal sinuses are well aerated. No evidence of supraglottic or glottic mass. Subg lottic airway. No cervical lymphadenopathy. Carotid bulb calcification. Advanced spondylitic changes cervical spine. Partially visualized airspace infiltrates in LEFT upper lobe described on the recent chest CT. Advanced emphysematous changes in the lung apices. CT/CT neck w con* [id number] IMPRESSION: 1. Normal salivary glands. 2. No evidence of supraglottic or glottic mass. 3. Posterior nasopharynx is patent. Normal parapharyngeal fat. 4. Advanced emphysematous changes in the lung apices. 5. Partially visualized airspace infiltrates in the LEFT upper lobe similar to the recent chest CT.
--- NOTE | 2023-02-13 12:57 | CT_ITS ---
WS: [id number] CT ABDOMEN PELVIS TECHNIQUE: Contrast-enhanced CT of the abdomen and pelvis with coronal and sagittal reformatted image s. CLINICAL INFORMATION: abdominal distention COMPARISON: None. DLP: 977.[address] scans at [facility] use at least one of these dose optimization techniques: automated e xposure control; mA and/or kV adjustment per patient size (includes targeted exams where dose is matc hed to clinical indication); or iterative reconstruction. FINDINGS: Moderate pericardial effusion. Tiny LEFT greater than RIGHT pleural effusions with basilar atelectasi s. Partially visualized infiltrate in the LEFT upper lobe. Normal liver. Normal spleen. Air-fluid lev el in the stomach. Distention of the stomach and proximal duodenum. Mendoza catheter. Normal portal vein and splenic vein. Normal spleen. Adrenal glands are normal. Normal renal parenchymal enhancement. No hydronephrosis. A few renal cysts. Normal caliber abdominal aorta. Mild aortic calcification. Mendoza catheter. Sigmoid diverticulosis. A few fluid-filled distended loop s of small bowel in the midabdomen and pelvis. Persistent air within the colon. No evidence of high-g rade obstruction. CT/CT abdomen pelvis w con* [id number] IMPRESSION: 1. Diffuse gastric distention with air-fluid level. 2. Correlation for gastroparesis or gastric outlet obstruction. 3. A few slightly distended loops of small bowel in the midabdomen and pelvis likely due to ileus. 4. No evidence of high-grade obstruction. 5. Mendoza catheter in place. 6. No hydronephrosis in either kidney. 7. Moderate pericardial effusion. 8. Tiny bilateral pleural effusions.
[2023-02-13] MEDS: diphenhydrAMINE 50 mg/mL SDV 1mL 25 MG IVP (13:07)
[2023-02-13] MEDS: sodium chloride 0.9% 500 ML IV (13:09)
--- NOTE | 2023-02-13 13:25 | P.PN_ITS ---
Subjective Subjective: Patient was seen and examined this morning,continue to be critically ill, has significant respiratory distress,he is also complaining of difficulty swallowing, serum sodium is slowly trending up, continue to be on hypertonic saline,xray kub has shown gaseous distension in both small and large bowel, CT Abdomen ad plevis has been ordered.He is also complaining of dysphagia:C.T neck has been ordered.Hb has trended down to 9.7 will monitor for possible bleeding as the patient is on full dose Ac for his a.fib. SCR has also slightly trended up patient has received I.V Contrast yesterday. Is due for some more contrast study will give him 500 cc normal saline bolus. Medications: Medication Review Details: Generic Name Dose Route Start Last Admin Trade Name Freq PRN Reason Stop Dose Admin Acetylcysteine 100 mg 02/12/23 16:00 02/13/23 12:03 Acetylcysteine 2 00 Mg/Ml Mdv 10 Ml INHALATION 100 mg Q4H.RESPIRATORY S CH Administration Aspirin 81 mg 02/12/23 09:00 02/13/23 07:45 Aspirin 81 Mg Ec Tablet PO Not Given DAILY KENN Atorvastatin Calci um 20 mg 02/12/23 09:00 02/13/23 07:45 Atorvastatin 40 Mg Tablet PO Not Given DAILY KENN Budesonide 0.5 mg 02/11/23 20:00 02/13/23 08:40 Budesonide 0.5 M g/2 Ml Neb INHALATION 0.5 mg BID.RESPIRATORY S CH Administration Enoxaparin Sodium 70 mg 02/12/23 20:00 02/13/23 09:24 Enoxaparin 80 Mg /0.8 Ml Syringe SUBCUT 70 mg Q12H KENN Administration Guaifenesin 1,200 mg 02/12/23 18:00 02/13/23 07:46 Guaifenesin 600 Mg Tablet PO Not Given BID KENN Piperacillin Sod/T azobactam 50 mls @ 12.5 mls /hr 02/11/23 13:15 02/13/23 09:41 Sod 3.375 gm/ So dium Chloride IV Infused Q8H KENN Infusion Protocol Vancomycin/PEG/NAD A/Lysine/Water 1,250 mg in 250 m ls @ 250 mls/hr 02/11/23 16:15 02/12/23 18:20 Vancocin IV Infused Q24H KENN Infusion Levofloxacin/Dextr ose 750 mg in 150 mls @ 100 mls/hr 02/12/23 14:30 02/12/23 18:20 Levaquin-D5w IV Infused Q24H KENN Infusion Protocol Albumin Human 25 g in 100 mls @ 60 mls/hr 02/12/23 18:30 02/13/23 11:25 Albumin IV Infused Q8H KENN Infusion Sodium Chloride 300 mls @ 50 mls/ hr 02/13/23 10:15 02/13/23 11:09 Sodium Chloride 3% IV 02/13/23 16:14 50 mls/hr .Q6H ONE Administration Sodium Chloride 500 mls @ 500 mls /hr 02/13/23 12:56 02/13/23 13:09 Sodium Chloride 0.9% IV 02/13/23 13:55 500 mls/hr ONCE ONE Administration Ipratropium Bromid e 0.5 mg 02/11/23 16:00 02/13/23 12:02 Ipratropium 0.5 Mg/2.5 Ml Neb INHALATION 0.5 mg QID.RESPIRATORY S CH Administration Levalbuterol HCl 1.25 mg 02/12/23 12:00 02/13/23 11:59 Levalbuterol 1.2 5 Mg/3 Ml Neb INHALATION 1.25 mg QID.RESPIRATORY S CH Administration Lisinopril 2.5 mg 02/12/23 09:00 02/12/23 08:41 Lisinopril 2.5 M g Tablet PO 2.5 mg DAILY KENN Administration Methylprednisolone Sodium Succinate 60 mg 02/13/23 09:15 02/13/23 09:23 Methylprednisolo ne Sod Succ 125 Mg /2 Ml Inj IVP 60 mg Q8H KENN Administration Mirtazapine 60 mg 02/11/23 21:00 02/12/23 20:04 Mirtazapine 30 M g Tablet PO Not Given BEDTIME KENN Multivitamins Ther apeutic 1 tab 02/12/23 09:00 02/13/23 07:47 Multivitamin The rapeutic Tablet PO Not Given DAILY KENN Non-Formulary Medi cation 10 mg 02/12/23 09:00 02/13/23 07:46 Coenzyme Q10 [Co Q-10] PO Not Given DAILY KENN Non-Formulary Medi cation 0.8 mg 02/12/23 09:00 02/13/23 07:46 Folic Acid PO Not Given DAILY [facility] Terazosin HCl 4 mg 02/12/23 09:00 02/12/23 09:45 Terazosin 1 Mg C apsule PO 4 mg DAILY [facility] Administration Vitamin D 1,000 unit 02/12/23 09:00 02/13/23 07:46 Cholecalciferol (Vitamin D3) 1,000 Unit Tablet PO Not Given DAILY [facility] Vitals/I&O/Wt Last Vital Signs Temp 98.2 F 02/13/23 08:00 Pulse 95 02/13/23 12:10 Resp 20 H 02/13/23 12:00 BP 146/74 02/13/23 09:30 Pulse Ox 92 02/13/23 12:00 O2 Del Method 02/13/23 12:00 O2 Flow Rate 5 02/13/23 12:00 FiO2 40 02/12/23 23:50 02/12/23 02/13/23 02/13/23 22:59 06:59 14:59 Intake Total 890.0 / 1240.0 150 / 1390.0 450 / 450 Output Total 650 / 650 300 / 950 Balance 240.0 / 590.0 -150 / 440.0 450 / 450 Weight last 48 hrs Weight 75.75 kg Weight 74.843 kg Weight 73.936 kg Physical Exam Const: COMMON NORMALS: patient oriented x3 HENMT: COMMON NORMALS: normocephalic and atraumatic HEAD & SCALP: normocephalic and atraumatic Resp: COMMON NORMALS: normal respiratory effort and clear to auscultation bilaterally AUSCULTATION: clear to auscultation bilaterally OTHER: Diminished air entry bilateral Cardio: COMMON NORMALS: regular rate, regular rhythm, S1 normal heart sound present, S2 normal heart sound present, No gallops present (Cardio), No murmurs present (Cardio), No rub (Cardio) and Peripheral pulses 2+ throughout RATE: regular rate RHYTHM: regular rhythm HEART SOUNDS: S1 normal heart sound present and S2 normal heart sound present PERIPHERAL PULSES: Peripheral pulses 2+ throughout GI: COMMON NORMALS: Normal to inspection, nondistended, normoactive bowel s ounds present, Soft to palpation, non-tender, No hepatosplenomegaly present and no masses AUSCULTATION: Yes normoactive bowel sounds PALPATION: Yes Soft to palpation and Yes No hepatosplenomegaly present RECTAL EXAM: Yes deferred Extremity: COMMON NORMALS: no clubbing, cyanosis or edema and no pedal edema Neuro: COMMON NORMALS: patient oriented x3 Urinary Catheter Management: Mendoza: Cath Placed During This Visit: yes Reason for Continuing Indwelling Catheter: Accurate Measurement of Urinary Output in Critically Ill Patients Urinary Catheter Date of Insertion: 02/12/23 Urinary Catheter Time of Insertion: 16:55 Data 02/13/23 03:22 02/13/23 09:18 Micro: Microbiology 02/12/23 21:55 MRSA Culture - Final Nose 02/11/23 17:15 Bacterial Antigens - Final Urine,Voided 02/12/23 17:15 Legionella Urinary Antigen - Final Urine Catheterized 02/11/23 11:59 Blood Culture - Preliminary Blood NEGATIVE TO DATE 02/11/23 12:04 Blood Culture - Preliminary Blood NEGATIVE TO DATE A&P Assessment and plan (1) Community acquired pneumonia: (2) Hyponatremia: (3) Smoker: (4) Aortic stenosis, moderate: (5) COPD (chronic obstructive pulmonary disease): (6) HTN (hypertension): Qualifiers: Hypertension type: essential hypertension Qualified Code(s): I10 - Essential (primary) hypertension (7) Coronary artery disease: Qualifiers: Associated angina: without angina Coronary Disease-Associated Artery/Lesion type: [place] artery [place] vs. transplanted heart: [place] heart Qualified Code(s): I25.10 - Atherosclerotic heart disease of [place] coronary artery without angina pectoris (8) NSTEMI (non-ST elevated myocardial infarction): (9) Sepsis: Plan 77 year old male non obstructive CAD, mild PAD, HTN, HLD, chronic active smoker and COPD. Came in today with chief complaint of worsening shortness of breath which started last week and since then it has progressively worsened, he is also having cough with productive sputum, he was also febrile at home, denied any chest pain, palpitation, headache dizziness, abnormal sensations, abdominal pain nausea vomiting. Sepsis secondary to pneumonia: Patient meets sepsis criteria: Has elevated white cell count, fever, tachypneic, tachycardic, pneumonia as the source of infection, endorgan damage could be, elevated troponin, hyponatremia. X-ray chest: Showed : Densely consolidated infiltrate in the central left lung and lingula. The possibility of an underlying mass in this region is not excluded. CT chest with contrast: LEFT hilar airspace infiltrate extending into the LEFT upper lobe is new from the prior examinations. Recommend correlation for pneumonia and follow-up to resolution.Small LEFT and tiny RIGHT pleural effusions. EKG: Sinus rhythm with PVCs Rapid COVID and influenza negative Blood culture Urine culture Sputum Gram stain and culture MRSA PCR Urine Legionella antigen Bacterial antigen panel Currently started on broad-spectrum antibiotics Vanco and Zosyn. Severe Hyponatremia: Possibility of SIADH in the presence of underlying pneumonia and COPD cannot be conclusively ruled Patient has denied chest pain, palpitation, headache dizziness, abnormal sensations, abdominal pain nausea vomiting. Admission serum sodium is 116 Follow TSH Urinalysis Random cortisol Serum osmolality Urine osmolality Has received hypertonic saline 300 cc 3%.Patient may need vaptans. Monitor serum sodium every 4 hours Given the fact that the patient is noted to be severely symptomatic, will avoid aggressive correction, goal correction will be around 6 to 8 mEq in 24 hours. NSTEMI: Troponin trend: 67-100-70 , proBNP 2397 Patient has currently denied any significant chest pain 2D echo: Diffuse hypokinesia of the anteroseptal and septal segments.LV ?ejection fraction around 45 to 50%. Mild left ventricular hypertrophy.?Grade I/IV diastolic dysfunction (abnormal relaxation fillingpattern), normal to mildly elevated filling pressures.??Segmental wall motion is difficult because of the fr equent?ventricular arrhythmia during the study.Stenotic aortic valve with moderate calcification.Valve area was not calculated.Mild mitral annular calcification.?Mild tricuspid valve regurgitation. Moderate pericardial effusion mostly in the anterior and around ?the apical region Continue telemetry monitoring Continue aspirin and statin A-fib with RVR: New diagnosed A-fib with RVR CHADS-VASc: 4 Initially started on amiodarone drip, has been discontinued Currently on p.o. metoprolol On therapeutic anticoagulation with Lovenox Moderate pericardial effusion: Cardiology on board, possibly serial echo follow-up HFrEF : Newly diagnosed heart failure with mildly reduced ejection fraction. 2D echo results appreciated. Currently on metoprolol Cardiology on board History of COPD: Continue DuoNebs Supplemental oxygen as needed CODE STATUS: Full code DVT prophylaxis on Lovenox Attestations Medical Necessity Statement*: Patient is to be in hospital for management of sepsis. Critical Care Time: The high probability of a clinically significant, sudden or life threatening deterioration of the patient's [] system(s) required my full and direct attention, intervention and personal management. The critical care time is as shown. This time is in addition to time spent performing any reported procedures but includes the following: [x] Data and vital sign review and interpretation [x] Patient assessment, examination and intervention [x] Documentation [x] Medication orders and management Critical Care Time (min): 50 Coding Level of Care Code Critical Care >/= 30 minutes Diagnoses Community acquired pneumonia J18.9 Hyponatremia E87.1 Smoker F17.200 Aortic stenosis, moderate I35.0 COPD (chronic obstructive pulmonary disease) J44.9 HTN (hypertension) I10 Hypertension type: essential hypertension Coronary artery disease I25.10 Associated angina: without angina Coronary Disease-Associated Artery/Lesion type: [place] artery [place] vs. transplanted heart: [place] heart NSTEMI (non-ST elevated myocardial infarction) I21.4 Sepsis A41.9
[2023-02-13 13:43] LABS: Sodium 128 mmol/L (136-145)
[2023-02-13] MEDS: iohexol 350 mg/mL 500 mL Btl (per mL) IV (14:07)
[2023-02-13] MEDS: levofloxacin-dextrose 5 % 750 MG/150 ML PREMIX 100 MG IV (14:23)
[2023-02-13] MEDS: morphine 4 mg/mL SDV 1 mL 1 MG IVP (15:53)
[2023-02-13] MEDS: vancomycin 1,250 MG/250 ML PIGGYBACK 250 MG IV (15:57)
[2023-02-13] MEDS: LORazepam 2 mg/mL INJ 1 mL 1 MG IVP (16:09)
[2023-02-13 16:49] LABS: Sodium 126 mmol/L (136-145)
--- NOTE | 2023-02-13 17:13 | PM.PN ---
Subjective Subjective: Patient's overall condition has worsened. He appears confused. Denies chest pain. LFTs have increased.Also has VIVI. Patient has significant hyponatremia. Vitals/I&O/Wt Last Vital Signs Temp 98.2 F 02/13/23 08:00 Pulse 92 02/13/23 16:45 Resp 28 H 02/13/23 16:00 BP 140/68 02/13/23 14:00 Pulse Ox 92 02/13/23 16:45 O2 Del Method 02/13/23 16:45 O2 Flow Rate 5 02/13/23 16:45 FiO2 40 02/13/23 16:44 02/13/23 02/13/23 02/13/23 06:59 14:59 22:59 Intake Total 150 / 1390.0 950 / 950 150 / 1100 Output Total 300 / 950 Balance -150 / 440.0 950 / 950 150 / 1100 Weight last 48 hrs Weight 167 lb Weight 165 lb Physical Exam Narrative: GENERAL: Patient is alert, awake and oriented x3. [] NECK: No jugular vein distension. [] HEENT: No cyanosis. No icterus. No pallor. [] HEART: Irregular heart rate LUNGS: Diminished air entry CENTRAL NERVOUS SYSTEM: Grossly nonfocal. [] EXTREMITIES: Lower extremities with 1+ edema bilaterally. Pulses palpable in the lower extremities, both dorsalis pedis and posterior tibial. [] Urinary Catheter Management: Mendoza: Cath Placed During This Visit: yes Reason for Continuing Indwelling Catheter: Accurate Measurement of Urinary Output in Critically Ill Patients Urinary Catheter Date of Insertion: 02/12/23 Urinary Catheter Time of Insertion: 16:55 Data 02/13/23 03:22 02/13/23 16:20 Micro: Microbiology 02/12/23 21:55 MRSA Culture - Final Nose 02/11/23 17:15 Bacterial Antigens - Final Urine,Voided 02/12/23 17:15 Legionella Urinary Antigen - Final Urine Catheterized A&P Assessment and plan (1) Sepsis: (2) Community acquired pneumonia: (3) Congestive heart failure: (4) Mitral regurgitation: (5) PAD (peripheral artery disease): (6) HTN (hypertension): Qualifiers: Hypertension type: essential hypertension Qualified Code(s): I10 - Essential (primary) hypertension (7) COPD (chronic obstructive pulmonary disease): (8) Coronary artery disease: Qualifiers: Coronary Disease-Associated Artery/Lesion type: [place] artery [place] vs. transplanted heart: [place] heart Associated angina: without angina Qualified Code(s): I25.10 - Atherosclerotic heart disease of [place] coronary artery without angina pectoris (9) Atrial fibrillation: Plan Patient's overall medical condition has deteriorated. Slow improvement in hyponatremia seen. Renal function has worsened, LFTs are elevated. Stop amiodarone. We will uptitrate metoprolol to 50 mg bid. Continue anticoagulation with enoxaparin. Pericardial effusion is moderate in size. Once patient is stable, can repeat limited echocardiogram. Thank you for involving us with care of this patient. We will continue to follow. Please call with questions. Attestations Medical Necessity Statement*: Care expected to cross 2 midnights. Coding Level of Care Code Acute Code for [facility] Fwd Diagnoses Sepsis A41.9 Community acquired pneumonia J18.9 Congestive heart failure I50.9 Mitral regurgitation I34.0 PAD (peripheral artery disease) I73.9 HTN (hypertension) I10 Hypertension type: essential hypertension COPD (chronic obstructive pulmonary disease) J44.9 Coronary artery disease I25.10 Coronary Disease-Associated Artery/Lesion type: [place] artery [place] vs. transplanted heart: [place] heart Associated angina: without angina Atrial fibrillation I48.91
[2023-02-13] MEDS: metoclopramide 5 mg/mL SDV 2 mL IVP ×2 (17:43→22:15)
[2023-02-13] MEDS: Fleet Enema 133 mL Enema PR (18:31)
[2023-02-13] MEDS: dexmedetomidine 400 MCG in sodium chloride 0.9% (100 ml) 100 ML IV (19:15)
--- NOTE | 2023-02-13 19:20 | PC.NURSE ---
Patient confused (after giving Ativan in attempt to make Bipap more comfortable) and pulling at lines, oxygen, moving all over in the bed, fidgeting, etc. Nurse waiting on Precedex gtt to take effect before starting NG tube.
[2023-02-13] MEDS: nicotine 21 mg Patch 1 PATCH TRANSDERMA (19:24)
--- NOTE | 2023-02-13 20:50 | XRR_ITS ---
PROCEDURE INFORMATION: Exam: XR Chest Exam date and time: 02/13/2023 7:55 PM Age: 77 years old Clinical indication: Device placement; Ng tube; Additional info: Ng tube placement verification TECHNIQUE: Imaging protocol: Radiologic exam of the chest. Views: 1 view. COMPARISON: CT chest w con* [id number] 02/12/2023 1:52 PM FINDINGS: Limitations: Pulmonary apices are cut off on this exam. Tubes, catheters and devices: Nasogastric tube is in place and extends into the stomach. Lungs: There is increasing consolidation of the left lung compared with 02/11/2023 consistent with worsening pneumonia. There are findings of pulmonary emphysema unchanged. No new infiltrate or consolidation is seen in the visualized portions of the right lung. Pleural spaces: Unremarkable. No pleural effusion. No pneumothorax. Heart/Mediastinum: Heart is not enlarged. Bones/joints: Unremarkable. XR/XR chest 1V portable [id number] IMPRESSION: 1. Worsening pneumonia 2. Nasogastric tube tip is in the stomach.
[2023-02-13 21:44] LABS: Sodium 133 mmol/L (136-145)
[2023-02-13] MEDS: mirtazapine 30 mg Tablet 60 MG PO (22:10)
--- NOTE | 2023-02-13 23:17 | PC.NURSE ---
Notified Dr. Monique that Na level increased form 126 to 133 in 4 hours and patient has 3% NS infusing at 30ml/hr. Order given to hold 3% at present time, do not discard drip at present time, will review chart. Recheck Na at next check and will re-evaluate then.
[2023-02-14] VITALS (27 sets, daily range): BP systolic 87–138; BP diastolic 38–70; PULSE 0–97; RESP 18–33; TEMP 36.4–36.8; O2SAT 90–96
[2023-02-14 01:35] LABS: Basophils # 0.1 10^3/uL (0.0-0.1); Basophils % 0.3 %; Hemoglobin 9.8 g/dL (11.7-16.6); Lymphocytes # 0.5 10^3/uL (0.8-4.8); Mean Corpuscular HGB Conc 32.7 g/dL (30.0-36.0); Mean Corpuscular Hemoglobin 32.6 pg (28.0-34.0); Mean Corpuscular Volume 99.7 fl (80-94); Neutrophils # 21.75 10^3/uL (1.8-7.7); Nucleated Red Blood Cells % 0 %; Platelet Count 217 10^3/cmm (130-400); Red Blood Count 3.01 10^6/uL (4.1-5.3); Red Cell Distribution Width 13.6 % (12.1-15.1); White Blood Count 23.6 10^3/uL (4.0-10.0)
[2023-02-14 01:57] LABS: Sodium 134 mmol/L (136-145)
--- NOTE | 2023-02-14 02:11 | PC.NURSE ---
NG tube pulled out per patient, will attempt reinsertion when patient calms.
[2023-02-14] MEDS: albumin 25 G/100 ML BAG 60 G IV ×3 (02:27→17:46)
[2023-02-14] MEDS: metoclopramide 5 mg/mL SDV 2 mL IVP ×4 (04:21→22:15)
[2023-02-14] MEDS: piperacillin-tazobactam 3.375 GM in sodium chloride 0.9% (plus) 50 ML IV ×3 (04:25→20:57)
[2023-02-14 05:51] LABS: Alanine Aminotransferase 44 U/L (0-41); Albumin Level 3.3 g/dL (3.5-5.2); Alkaline Phosphatase 73 U/L (40-130); Anion Gap 13.3 (5-19); Aspartate Amino Transferase 26 U/L (0-40); Blood Urea Nitrogen 59 mg/dL (8-23); Calcium 8.7 mg/dL (8.5-10.5); Carbon Dioxide 23 mmol/L (22-29); Chloride 104 mmol/L (98-107); Globulin 2.2 g/dL (1.3-4.6); Glucose 162 mg/dL (65-115); Osmolality Calculated 302 mOsm/kg (285-295); Potassium 4.3 mmol/L (3.5-5.1); Sodium 136 mmol/L (136-145); Total Bilirubin 0.3 mg/dL (0.15-1.2); Total Protein 5.5 g/dL (6.6-8.7)
[2023-02-14] MEDS: enoxaparin 80 mg/0.8 mL Syringe 70 MG SUBCUT ×2 (07:55→19:53)
[2023-02-14] MEDS: dexmedetomidine 400 MCG in sodium chloride 0.9% (100 ml) 100 ML 9.85 MCG IV (07:55)
--- NOTE | 2023-02-14 08:00 | P.CONIM_ITS ---
Providers/Reason For Consult Consulting Physician/Specialty*: Dr. Cj Higuera, DO Reason for Consult*: Gastric distention Attending Physician: Joseph Drew MD Primary Care Provider: Kaylene Veras MD History of Present Illness History of Present Illness Osbaldo Alvarado is a 77 year old male, who has never had surgery on his abdomen, who presented to the hospital with increased difficulty breathing. He had a CT of the chest and abdomen which revealed gastric dilation. Due to his air hunger he is unable to answer any questions. HPI and review of systems are limited secondary to this. Review of Systems General: Reports: ROS unobtainable due to medical condition Medications/Allergies Home Medications Medication Instructions Recorded Confirmed Last Taken Type albuterol sulfate 90 mcg/actuation 2 puff inhalation Q6H PRN 01/07/20 02/11/23 Unknown History aerosol inhaler (ProAir HFA) Shortness Of Breath Or Wheezing aspirin 81 mg tablet,delayed 81 mg PO DAILY 01/07/20 02/11/23 02/10/23 History release (Adult Low Dose Aspirin) cholecalciferol (vitamin D3) 25 1,000 unit PO DAILY 01/07/20 02/11/23 02/10/23 History mcg (1,000 unit) capsule folic acid 800 mcg tablet 0.8 mg PO DAILY 01/07/20 02/11/23 02/10/23 History furosemide 20 mg tablet (Lasix) 20 mg PO QAM PRN Edema 01/07/20 02/11/23 Unknown History multivitamin 1 tab PO DAILY 01/07/20 02/11/23 02/10/23 History nitroglycerin 0.4 mg sublingual 0.4 mg sublingual Q5M PRN Chest 01/07/20 02/11/23 Unknown History tablet (Nitrostat) Pain rosuvastatin 5 mg tablet 2.5 mg PO DAILY 01/07/20 02/11/23 02/10/23 History terazosin 2 mg capsule 4 mg PO DAILY 10/23/20 02/11/23 02/10/23 History lisinopril 2.5 mg tablet 2.5 mg PO DAILY 02/27/21 02/11/23 02/10/23 History mirtazapine 30 mg tablet 60 mg PO BEDTIME 02/27/21 02/11/23 02/10/23 History quetiapine 50 mg tablet (Seroquel) 75 mg PO BEDTIME 02/27/21 02/11/23 02/10/23 History coenzyme Q10 10 mg capsule (Co 10 mg PO DAILY 05/18/21 02/11/23 02/10/23 History Q-10) tiotropium bromide 2.5 2 puff inhalation BID 05/18/21 02/11/23 02/10/23 History mcg/actuation mist for inhalation (Spiriva Respimat) fluticasone 500 mcg-salmeterol 50 1 inh inhalation BID #60 ea 11/06/22 02/11/23 02/10/23 Rx mcg/dose blistr powdr for inhalation (Advair Diskus) doxycycline hyclate 100 mg tablet 100 mg PO BID 02/11/23 02/11/23 02/10/23 History quercetin 500 mg capsule 500 mg PO DAILY 02/11/23 02/11/23 02/10/23 History Allergies Allergy/AdvReac Type Severity Reaction Status Date / Time Iodinated Contrast Media Allergy Unknown Unknown Verified 09/13/22 10:42 Current Medications Generic Name Dose Route Start Last Admin Trade Name Freq PRN Reason Stop Dose Admin Acetylcysteine 100 mg 02/12/23 16:00 02/14/23 03:40 Acetylcysteine 200 Mg/Ml Mdv 10 Ml INHALATION Not Given Q4H.RESPIRATORY KENN Aspirin 81 mg 02/12/23 09:00 02/13/23 07:45 Aspirin 81 Mg Ec Tablet PO Not Given DAILY KENN Atorvastatin Calcium 20 mg 02/12/23 09:00 02/13/23 07:45 Atorvastatin 40 Mg Tablet PO Not Given DAILY KENN Budesonide 0.5 mg 02/11/23 20:00 02/13/23 19:57 Budesonide 0.5 Mg/2 Ml Neb INHALATION 0.5 mg BID.RESPIRATORY KENN Administration Enoxaparin Sodium 70 mg 02/12/23 20:00 02/14/23 07:55 Enoxaparin 80 Mg/0.8 Ml Syringe SUBCUT 70 mg Q12H KENN Administration Guaifenesin 1,200 mg 02/12/23 18:00 02/13/23 17:38 Guaifenesin 600 Mg Tablet PO Not Given BID KENN Piperacillin Sod/Tazobactam 50 mls @ 12.5 mls/hr 02/11/23 13:15 02/14/23 04:25 Sod 3.375 gm/ Sodium Chloride IV 12.5 mls/hr Q8H KENN Administration Protocol Vancomycin/PEG/NA[place]/Lysine/Water 1,250 mg in 250 mls @ 250 mls/hr 02/11/23 16:15 02/13/23 18:41 Vancocin IV Infused Q24H KENN Infusion Levofloxacin/Dextrose 750 mg in 150 mls @ 100 mls/hr 02/12/23 14:30 02/13/23 15:58 Levaquin-D5w IV Infused Q24H KENN Infusion Protocol Albumin Human 25 g in 100 mls @ 60 mls/hr 02/12/23 18:30 02/14/23 04:08 Albumin IV Infused Q8H KENN Infusion Dexmedetomidine HCl 400 mcg/ 104 mls @ 0 mls/hr 02/13/23 18:30 02/14/23 07:55 Sodium Chloride IV 0.5 mcg/kg/hr .Q0M KENN 9.85 mls/hr Administration Protocol Per Protocol Ipratropium [place] 0.5 mg 02/13/23 20:00 02/14/23 03:40 Ipratropium 0.5 Mg/2.5 Ml Neb INHALATION Not Given Q4H.RESPIRATORY KENN Levalbuterol HCl 1.25 mg 02/13/23 20:00 02/14/23 03:40 Levalbuterol 1.25 Mg/3 Ml Neb INHALATION Not Given Q4H.RESPIRATORY KENN Lisinopril 2.5 mg 02/12/23 09:00 02/12/23 08:41 Lisinopril 2.5 Mg Tablet PO 2.5 mg DAILY KENN Administration Methylprednisolone Sodium Succinate 60 mg 02/13/23 09:15 02/14/23 01:37 Methylprednisolone Sod Succ 125 Mg/2 Ml Inj IVP 60 mg Q8H KENN Administration Metoclopramide HCl 5 mg 02/13/23 17:00 02/14/23 04:21 Metoclopramide 5 Mg/Ml Sdv 2 Ml IVP 5 mg Q6H KENN Administration Metoprolol Tartrate 50 mg 02/13/23 21:00 02/13/23 22:09 Metoprolol Tartrate 50 Mg Tablet PO Not Given BID@0900,2100 KENN Mirtazapine 60 mg 02/11/23 21:00 02/13/23 22:10 Mirtazapine 30 Mg Tablet PO 60 mg BEDTIME KENN Administration Morphine Sulfate 1 mg 02/13/23 15:37 02/13/23 15:53 Morphine 4 Mg/Ml Sdv 1 Ml IVP 1 mg Q6H PRN Administration SEVERE PAIN Multivitamins Therapeutic 1 tab 02/12/23 09:00 02/13/23 07:47 Multivitamin Therapeutic Tablet PO Not Given DAILY KENN Non-Formulary Medication 10 mg 02/12/23 09:00 02/13/23 07:46 Coenzyme Q10 [Co Q-10] PO Not Given DAILY KENN Non-Formulary Medication 0.8 mg 02/12/23 09:00 02/13/23 07:46 Folic Acid PO Not Given DAILY KENN Terazosin HCl 4 mg 02/12/23 09:00 02/12/23 09:45 Terazosin 1 Mg Capsule PO 4 mg DAILY KENN Administration Vitamin D 1,000 unit 02/12/23 09:00 02/13/23 07:46 Cholecalciferol (Vitamin D3) 1,000 Unit Tablet PO Not Given DAILY KENN PFSH Acute PFSH: Medical History Arthritis Claudication COPD (chronic obstructive pulmonary disease) Coronary artery disease HTN (hypertension) Hyperlipidemia Mitral regurgitation PAD (peripheral artery disease) Rheumatic heart disease Surgical History Hx of knee surgery Family History Father Cancer Prostate CA COPD (chronic obstructive pulmonary disease) Stroke Mother Cancer Ovarian CA Hypertension Social History Smoking and tobacco status: current every day smoker (1 ppd) cigarettes Packs smoked per day: 1 Years cigarettes smoked: 60 Quit status (tobacco): has tried quititng 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 Second hand smoke exposure: Yes Smoking risk assessment/counseling performed?: Yes Alcohol intake: current Alcohol intake frequency: few times a week Lives independently: Yes Household members: spouse Housing: House Marital status: service: Yes Current occupational status: retired Pets and animals: Yes Current gender identity: Male Vitals/I&O/Wt Last Vital Signs Temp 97.8 F 02/14/23 04:00 Pulse 74 02/14/23 07:00 Resp 22 H 02/14/23 07:00 BP 119/63 02/14/23 07:00 Pulse Ox 95 02/14/23 07:00 O2 Del Method 02/14/23 07:00 O2 Flow Rate 7 02/14/23 07:00 FiO2 40 02/13/23 16:44 02/13/23 02/14/23 02/14/23 22:59 06:59 14:59 Intake Total 863.462 / 1813.462 359.774 / 2173.236 32.505 / 32.505 Output Total 1000 / 1000 800 / 1800 Balance -136.538 / 813.462 -440.226 / 373.236 32.505 / 32.505 Weight last 48 hrs Weight 167 lb 3.2 oz Weight 167 lb Physical Exam Narrative: General : Patient is well developed , in acute distress with air hunger Head : Normal cephalic, a-traumatic. Ears : Pinnae and external canal are normal. Hearing is normal. Eyes : PERRLA, Sclera and injection are normal. No conjunctival discharge. Nose : Mucous membranes are without erythema. Throat : buccal mucosa is normal, gums are without significant recession or hypertrophy. Lungs : Equal chest rise bilaterally, positive use of accessory muscles, trachea is midline. Cor : Rate and rhythm are normal. Abdomen : Soft, mild distention, NT, no g/r/m Extremities : No edema, no cyanosis or clubbing, dorsalis pedis pulses are present bilaterally, non-tender to palpation of calves. Upper extremities are normal bilaterally. Back : non-tender to palpation, no CVA tenderness. Neuro : CN II - XII intact, Upper and lower extremities have equal and full strength Urinary Catheter Management: Mendoza: Cath Placed During This Visit: yes Reason for Continuing Indwelling Catheter: Accurate Measurement of Urinary Output in Critically Ill Patients Urinary Catheter Date of Insertion: 02/12/23 Urinary Catheter Time of Insertion: 16:55 Data 02/14/23 00:56 02/14/23 05:16 Micro: Microbiology 02/12/23 21:55 MRSA Culture - Final Nose 02/11/23 17:15 Bacterial Antigens - Final Urine,Voided A&P Assessment and plan (1) Gastric distention: Plan NG tube to low intermittent suction Fleets enema Coding Level of Care Code Acute Code for Chg Fwd Diagnoses Gastric distention K31.89
[2023-02-14] MEDS: budesonide 0.5 mg/2 mL Neb INHALATION ×2 (08:03→21:38)
[2023-02-14] MEDS: ipratropium 0.5 mg/2.5 mL Neb INHALATION ×4 (08:03→21:38)
[2023-02-14] MEDS: levalbuterol 1.25 mg/3 mL Neb INHALATION ×4 (08:03→21:38)
[2023-02-14] MEDS: acetylcysteine 200 mg/mL MDV 10 mL 100 MG INHALATION ×3 (08:04→21:34)
[2023-02-14 10:02] LABS: Sodium 136 mmol/L (136-145)
[2023-02-14] MEDS: nicotine 21 mg Patch 1 PATCH TRANSDERMA (10:35)
--- NOTE | 2023-02-14 10:49 | PC.SOCIAL ---
IMM update IMM updated with patient. Verbalized an understanding. COpy pG 2 provided. initialled, dated, timed, and placed in chart.
--- NOTE | 2023-02-14 11:09 | PM.PN ---
Subjective Subjective: Patient was seen and examined this morning,hyponatremia has resolved,currently he has been kept on precedex drip to help him be calm and facilitate the breathing.good urine output.afebrile. Medications: Medication Review Details: Generic Name Dose Route Start Last Admin Trade Name Skylerq PRN Reason Stop Dose Admin Acetylcysteine 100 mg 02/12/23 16:00 02/14/23 08:04 Acetylcysteine 2 00 Mg/Ml Mdv 10 Ml INHALATION 100 mg Q4H.RESPIRATORY S CH Administration Aspirin 81 mg 02/12/23 09:00 02/14/23 10:19 Aspirin 81 Mg Ec Tablet PO Not Given DAILY KENN Atorvastatin Calci um 20 mg 02/12/23 09:00 02/14/23 10:19 Atorvastatin 40 Mg Tablet PO Not Given DAILY KENN Budesonide 0.5 mg 02/11/23 20:00 02/14/23 08:03 Budesonide 0.5 M g/2 Ml Neb INHALATION 0.5 mg BID.RESPIRATORY S CH Administration Enoxaparin Sodium 70 mg 02/12/23 20:00 02/14/23 07:55 Enoxaparin 80 Mg /0.8 Ml Syringe SUBCUT 70 mg Q12H KENN Administration Guaifenesin 1,200 mg 02/12/23 18:00 02/14/23 10:21 Guaifenesin 600 Mg Tablet PO Not Given BID KENN Piperacillin Sod/T azobactam 50 mls @ 12.5 mls /hr 02/11/23 13:15 02/14/23 10:22 Sod 3.375 gm/ So dium Chloride IV Infused Q8H KENN Infusion Protocol Vancomycin/PEG/NAD A/Lysine/Water 1,250 mg in 250 m ls @ 250 mls/hr 02/11/23 16:15 02/13/23 18:41 Vancocin IV Infused Q24H KENN Infusion Levofloxacin/Dextr ose 750 mg in 150 mls @ 100 mls/hr 02/12/23 14:30 02/13/23 15:58 Levaquin-D5w IV Infused Q24H KENN Infusion Protocol Albumin Human 25 g in 100 mls @ 60 mls/hr 02/12/23 18:30 02/14/23 10:36 Albumin IV 60 mls/hr Q8H KENN Administration Dexmedetomidine HC l 400 mcg/ 104 mls @ 0 mls/h r 02/13/23 18:30 02/14/23 07:55 Sodium Chloride IV 0.5 mcg/kg/hr .Q0M KENN 9.85 mls/hr Administration Protocol Per Protocol Ipratropium Brom[place] e 0.5 mg 02/13/23 20:00 02/14/23 08:03 Ipratropium 0.5 Mg/2.5 Ml Neb INHALATION 0.5 mg Q4H.RESPIRATORY S CH Administration Levalbuterol HCl 1.25 mg 02/13/23 20:00 02/14/23 08:03 Levalbuterol 1.2 5 Mg/3 Ml Neb INHALATION 1.25 mg Q4H.RESPIRATORY S CH Administration Lisinopril 2.5 mg 02/12/23 09:00 02/12/23 08:41 Lisinopril 2.5 M g Tablet PO 2.5 mg DAILY KENN Administration Methylprednisolone Sodium Succinate 60 mg 02/13/23 09:15 02/14/23 10:34 Methylprednisolo ne Sod Succ 125 Mg /2 Ml Inj IVP 60 mg Q8H KENN Administration Metoclopramide HCl 5 mg 02/13/23 17:00 02/14/23 10:35 Metoclopramide 5 Mg/Ml Sdv 2 Ml IVP 5 mg Q6H KENN Administration Metoprolol Tartrat e 50 mg 02/13/23 21:00 02/14/23 10:21 Metoprolol Tartr ate 50 Mg Tablet PO Not Given BID@0900,2100 KENN Mirtazapine 60 mg 02/11/23 21:00 02/13/23 22:10 Mirtazapine 30 M g Tablet PO 60 mg BEDTIME KENN Administration Morphine Sulfate 1 mg 02/13/23 15:37 02/13/23 15:53 Morphine 4 Mg/Ml Sdv 1 Ml IVP 1 mg Q6H PRN Administration SEVERE PAIN Multivitamins Ther apeutic 1 tab 02/12/23 09:00 02/14/23 10:21 Multivitamin The rapeutic Tablet PO Not Given DAILY KENN Nicotine 1 patch 02/14/23 09:00 02/14/23 10:35 Nicotine 21 Mg P atch TRANSDERMA 1 patch DAILY KENN Administration Non-Formulary Medi cation 10 mg 02/12/23 09:00 02/14/23 10:20 Coenzyme Q10 [Co Q-10] PO Not Given DAILY [facility] Non-Formulary Medi cation 0.8 mg 02/12/23 09:00 02/14/23 10:21 Folic Acid PO Not Given DAILY [facility] Terazosin HCl 4 mg 02/12/23 09:00 02/12/23 09:45 Terazosin 1 Mg C apsule PO 4 mg DAILY [facility] Administration Vitamin D 1,000 unit 02/12/23 09:00 02/14/23 10:20 Cholecalciferol (Vitamin D3) 1,000 Unit Tablet PO Not Given DAILY [facility] Vitals/I&O/Wt Last Vital Signs Temp 97.8 F 02/14/23 04:00 Pulse 65 02/14/23 10:00 Resp 18 02/14/23 10:00 BP 111/52 02/14/23 10:00 Pulse Ox 93 02/14/23 10:00 O2 Del Method 02/14/23 10:00 O2 Flow Rate 7 02/14/23 10:00 FiO2 40 02/13/23 16:44 02/13/23 02/14/23 02/14/23 22:59 06:59 14:59 Intake Total 863.462 / 1813.462 359.774 / 2173.236 82.505 / 82.505 Output Total 1000 / 1000 800 / 1800 Balance -136.538 / 813.462 -440.226 / 373.236 82.505 / 82.505 Weight last 48 hrs Weight 75.841 kg Weight 75.75 kg Physical Exam Const: COMMON NORMALS: patient oriented x3 HENMT: COMMON NORMALS: normocephalic and atraumatic HEAD & SCALP: normocephalic and atraumatic Resp: COMMON NORMALS: normal respiratory effort and clear to auscultation bilaterally AUSCULTATION: clear to auscultation bilaterally OTHER: Diminished air entry bilateral Cardio: COMMON NORMALS: regular rate, regular rhythm, S1 normal heart sound present, S2 normal heart sound present, No gallops present (Cardio), No murmurs present (Cardio), No rub (Cardio) and Peripheral pulses 2+ throughout RATE: regular rate RHYTHM: regular rhythm HEART SOUNDS: S1 normal heart sound present and S2 normal heart sound present PERIPHERAL PULSES: Peripheral pulses 2+ throughout GI: COMMON NORMALS: Normal to inspection, nondistended, normoactive bowel sounds present, Soft to palpation, non-tender, No hepatosplenomegaly present and no masses AUSCULTATION: Yes normoactive bowel sounds PALPATION: Yes Soft to palpation and Yes No hepatosplenomegaly present RECTAL EXAM: Yes deferred Extremity: COMMON NORMALS: no clubbing, cyanosis or edema and no pedal edema Neuro: COMMON NORMALS: patient oriented x3 Urinary Catheter Management: Mendoza: Cath Placed During This Visit: yes Reason for Continuing Indwelling Catheter: Accurate Measurement of Urinary Output in Critically Ill Patients Urinary Catheter Date of Insertion: 02/12/23 Urinary Catheter Time of Insertion: 16:55 Data 02/14/23 00:56 02/14/23 09:32 Micro: Microbiology 02/12/23 21:55 MRSA Culture - Final Nose 02/11/23 17:15 Bacterial Antigens - Final Urine,Voided A&P Assessment and plan (1) Community acquired pneumonia: (2) Hyponatremia: (3) Smoker: (4) Aortic stenosis, moderate: (5) COPD (chronic obstructive pulmonary disease): (6) HTN (hypertension): Qualifiers: Hypertension type: essential hypertension Qualified Code(s): I10 - Essential (primary) hypertension (7) Coronary artery disease: Qualifiers: Associated angina: without angina Coronary Disease-Associated Artery/Lesion type: [place] artery [place] vs. transplanted heart: [place] heart Qualified Code(s): I25.10 - Atherosclerotic heart disease of [place] coronary artery without angina pectoris (8) NSTEMI (non-ST elevated myocardial infarction): (9) Sepsis: (10) Ileus: Plan 77 year old male non obstructive CAD, mild PAD, HTN, HLD, chronic active smoker and COPD. Came in today with chief complaint of worsening shortness of breath which started last week and since then it has progressively worsened, he is also having cough with productive sputum, he was also febrile at home, denied any chest pain, palpitation, headache dizziness, abnormal sensations, abdominal pain nausea vomiting. Sepsis secondary to pneumonia: Patient meets sepsis criteria: Has elevated white cell count, fever, tachypneic, tachycardic, pneumonia as the source of infection, endorgan damage could be, elevated troponin, hyponatremia. X-ray chest: Showed : Densely consolidated infiltrate in the central left lung and lingula. The possibility of an underlying mass in this region is not excluded. CT chest with contrast: LEFT hilar airspace infiltrate extending into the LEFT upper lobe is new from the prior examinations. Recommend correlation for pneumonia and follow-up to resolution.Small LEFT and tiny RIGHT pleural effusions. C.T Abdomen and pelvis with contrast : Diffuse gastric distention with air-fluid level.Correlation for gastroparesis or gastric outlet obstruction. A few slightly distended loops of small bowel in the midabdomen and pelvis likely due to ileus.No evidence of high-grade obstruction.No hydronephrosis in either kidney. Moderate pericardial effusion. Tiny bilateral pleural effusions. C,T Neck was done as he was having difficulty swallowing: Unremarkable: may need baruim study or EGD: EKG: Sinus rhythm with PVCs Rapid COVID and influenza negative Blood culture:NTD Urine culture Sputum Gram stain and culture: MRSA PCR: pcr Urine Legionella antigen:negative Bacterial antigen panel:negative Currently started on broad-spectrum antibiotics Vanco , Zosyn,levofloxacin ( double pseudomans coverage ) Severe Hyponatremia: Possibility of SIADH in the presence of underlying pneumonia and COPD cannot be conclusively ruled Patient has denied chest pain, palpitation, headache dizziness, abnormal sensations, abdominal pain nausea vomiting. Admission serum sodium is 116 Follow TSH Urinalysis Random cortisol Serum osmolality Urine osmolality Has received hypertonic saline 300 cc 3%.Patient may need vaptans. Monitor serum sodium every 4 hours Given the fact that the patient is noted to be severely symptomatic, will avoid aggressive correction, goal correction will be around 6 to 8 mEq in 24 hours. NSTEMI: Troponin trend: 67-100-70 , proBNP 2397 Patient has currently denied any significant chest pain 2D echo: Diffuse hypokinesia of the anteroseptal and septal segments.LV ?ejection fraction around 45 to 50%. Mild left ventricular hypertrophy.?Grade I/IV diastolic dysfunction (abnormal relaxation fillingpattern), normal to mildly elevated filling pressures.??Segmental wall motion is difficult because of the frequent?ventricular arrhythmia during the study.Stenotic aortic valve with moderate calcification.Valve area was not calculated.Mild mitral annular calcification.?Mild tricuspid valve regurgitation. Moderate pericardial effusion mostly in the anterior and around ?the apical region Continue telemetry monitoring Continue aspirin and statin A-fib with RVR: New diagnosed A-fib with RVR CHADS-VASc: 4 Initially started on amiodarone drip, has been discontinued Currently on p.o. metoprolol On therapeutic anticoagulation with Lovenox Moderate pericardial effusion: Cardiology on board, possibly serial echo follow-up HFrEF : Newly diagnosed heart failure with mildly reduced ejection fraction. 2D echo results appreciated. Currently on metoprolol Cardiology on board Mild Ileus : N.G Tube was placed, unfortunately patient pulled it out. Continue to monitor for now. Currently NPO. History of COPD: Continue DuoNebs Supplemental oxygen as needed CODE STATUS: Full code DVT prophylaxis on Lovenox Attestations Medical Necessity Statement*: Needs to be in hospital for the management of Pneumonia. Critical Care Time: The high probability of a clinically significant, sudden or life threatening deterioration of the patient's [] system(s) required my full and direct attention, intervention and personal management. The critical care time is as shown. This time is in addition to time spent performing any reported procedures but includes the following: [x] Data and vital sign review and interpretation [x] Patient assessment, examination and intervention [x] Documentation [x] Medication orders and management Critical Care Time (min): 45 Coding Level of Care Code Critical Care >/= 30 minutes Diagnoses Community acquired pneumonia J18.9 Hyponatremia E87.1 Smoker F17.200 Aortic stenosis, moderate I35.0 COPD (chronic obstructive pulmonary disease) J44.9 HTN (hypertension) I10 Hypertension type: essential hypertension Coronary artery disease I25.10 Associated angina: without angina Coronary Disease-Associated Artery/Lesion type: [place] artery [place] vs. transplanted heart: [place] heart NSTEMI (non-ST elevated myocardial infarction) I21.4 Sepsis A41.9 Ileus K56.7
--- NOTE | 2023-02-14 15:03 | PM.PN ---
Subjective Subjective: Patient is confused. on precedex. Heart rate is controlled. He is back in normal sinus rhythm Vitals/I&O/Wt Last Vital Signs Temp 97.8 F 02/14/23 04:00 Pulse 62 02/14/23 14:00 Resp 29 H 02/14/23 13:00 BP 132/70 02/14/23 13:00 Pulse Ox 90 02/14/23 13:29 O2 Del Method 02/14/23 13:00 O2 Flow Rate 4 02/14/23 12:02 FiO2 60 02/14/23 13:29 02/14/23 02/14/23 02/14/23 06:59 14:59 22:59 Intake Total 359.774 / 2173.236 182.505 / 182.505 Output Total 800 / 1800 Balance -440.226 / 373.236 182.505 / 182.505 Weight last 48 hrs Weight 167 lb 3.2 oz Weight 167 lb Physical Exam Narrative: GENERAL: Patient is confused. NECK: No jugular vein distension. [] HEENT: No cyanosis. No icterus. No pallor. [] HEART: Regular LUNGS: Diminished air entry CENTRAL NERVOUS SYSTEM: Grossly nonfocal. [] EXTREMITIES: Lower extremities with 1+ edema bilaterally. Pulses palpable in the lower extremities, both dorsalis pedis and posterior tibial. [] Urinary Catheter Management: Mendoza: Cath Placed During This Visit: yes Reason for Continuing Indwelling Catheter: Accurate Measurement of Urinary Output in Critically Ill Patients Urinary Catheter Date of Insertion: 02/12/23 Urinary Catheter Time of Insertion: 16:55 Data 02/14/23 00:56 02/14/23 09:32 Micro: Microbiology 02/12/23 21:55 MRSA Culture - Final Nose 02/11/23 17:15 Bacterial Antigens - Final Urine,Voided A&P Assessment and plan (1) Sepsis: (2) Community acquired pneumonia: (3) Congestive heart failure: (4) Mitral regurgitation: (5) PAD (peripheral artery disease): (6) HTN (hypertension): Qualifiers: Hypertension type: essential hypertension Qualified Code(s): I10 - Essential (primary) hypertension (7) COPD (chronic obstructive pulmonary disease): (8) Coronary artery disease: Qualifiers: Coronary Disease-Associated Artery/Lesion type: [place] artery [place] vs. transplanted heart: [place] heart Associated angina: without angina Qualified Code(s): I25.10 - Atherosclerotic heart disease of [place] coronary artery without angina pectoris (9) Atrial fibrillation: Plan Labs have improved. Hyponatremia resolving. Continue metoprolol. He is normal sinus rhythm now. Continue anticoagulation with enoxaparin. Troponin elevation likely secondary to demand ischemia in setting of sepsis/ pneumonia. However, once stable, can consider stress test. Pericardial effusion is moderate in size. Once patient is stable, can repeat limited echocardiogram. Thank you for involving us with care of this patient. Please call with questions. Attestations Medical Necessity Statement*: Care expected to cross 2 midnights. Coding Level of Care Code Acute Code for [facility] Fwd Diagnoses Sepsis A41.9 Community acquired pneumonia J18.9 Congestive heart failure I50.9 Mitral regurgitation I34.0 PAD (peripheral artery disease) I73.9 HTN (hypertension) I10 Hypertension type: essential hypertension COPD (chronic obstructive pulmonary disease) J44.9 Coronary artery disease I25.10 Coronary Disease-Associated Artery/Lesion type: [place] artery [place] vs. transplanted heart: [place] heart Associated angina: without angina Atrial fibrillation I48.91
[2023-02-14] MEDS: levofloxacin-dextrose 5 % 750 MG/150 ML PREMIX 100 MG IV (15:44)
[2023-02-14 16:23] LABS: Vancomycin Trough 10.4 ug/mL (10-15)
[2023-02-14 17:25] LABS: Sodium 138 mmol/L (136-145)
[2023-02-14] MEDS: vancomycin 1,250 MG/250 ML PIGGYBACK 250 MG IV (17:47)
[2023-02-14] MEDS: dextrose 5% 1,000 ML 30 ML IV (19:47)
[2023-02-14] MEDS: dexmedetomidine 400 MCG in sodium chloride 0.9% (100 ml) 100 ML IV (19:57)
[2023-02-15] VITALS (25 sets, daily range): BP systolic 89–141; BP diastolic 45–103; PULSE 70–102; RESP 18–33; TEMP 36.2–36.4; O2SAT 88–98
[2023-02-15] MEDS: ipratropium 0.5 mg/2.5 mL Neb INHALATION ×4 (00:26→11:13)
[2023-02-15] MEDS: levalbuterol 1.25 mg/3 mL Neb INHALATION ×4 (00:26→11:13)
[2023-02-15] MEDS: morphine 4 mg/mL SDV 1 mL 1 MG IVP ×2 (01:13→06:30)
[2023-02-15 01:15] LABS: Sodium 136 mmol/L (136-145)
[2023-02-15] MEDS: metoclopramide 5 mg/mL SDV 2 mL IVP ×2 (04:55→12:13)
[2023-02-15] MEDS: piperacillin-tazobactam 3.375 GM in sodium chloride 0.9% (plus) 50 ML IV (04:55)
[2023-02-15] MEDS: dexmedetomidine 400 MCG in sodium chloride 0.9% (100 ml) 100 ML 11.82 MCG IV (06:36)
[2023-02-15] MEDS: enoxaparin 80 mg/0.8 mL Syringe 70 MG SUBCUT (07:11)
[2023-02-15] MEDS: acetylcysteine 200 mg/mL MDV 10 mL 100 MG INHALATION ×2 (07:59→11:13)
[2023-02-15] MEDS: budesonide 0.5 mg/2 mL Neb INHALATION (08:00)
[2023-02-15] MEDS: nicotine 21 mg Patch 1 PATCH TRANSDERMA (09:17)
[2023-02-15 09:30] LABS: Basophils # 0.1 10^3/uL (0.0-0.1); Basophils % 0.3 %; Hematocrit 30.3 % (42.0-52.0); Hemoglobin 9.7 g/dL (11.7-16.6); Lymphocytes # 0.6 10^3/uL (0.8-4.8); Lymphocytes % 2.6 %; Mean Corpuscular Hemoglobin 32.7 pg (28.0-34.0); Mean Platelet Volume 9.1 fL (7.4-10.4); Monocytes # 0.7 10^3/uL (0.2-0.9); Monocytes % 3.1 %; Neutrophils # 19.83 10^3/uL (1.8-7.7); Neutrophils % 89.1 %; Nucleated Red Blood Cells % 0 %; Platelet Count 199 10^3/cmm (130-400); Red Blood Count 2.97 10^6/uL (4.1-5.3); Red Cell Distribution Width 14.1 % (12.1-15.1); White Blood Count 22.2 10^3/uL (4.0-10.0)
[2023-02-15 09:58] LABS: Alanine Aminotransferase 30 U/L (0-41); Albumin Level 3.3 g/dL (3.5-5.2); Alkaline Phosphatase 59 U/L (40-130); Anion Gap 13.4 (5-19); Aspartate Amino Transferase 14 U/L (0-40); Blood Urea Nitrogen 71 mg/dL (8-23); Calcium 8.8 mg/dL (8.5-10.5); Carbon Dioxide 23 mmol/L (22-29); Chloride 107 mmol/L (98-107); Globulin 2.2 g/dL (1.3-4.6); Glucose 146 mg/dL (65-115); Osmolality Calculated 311 mOsm/kg (285-295); Potassium 4.4 mmol/L (3.5-5.1); Sodium 139 mmol/L (136-145); Total Bilirubin 0.4 mg/dL (0.15-1.2); Total Protein 5.5 g/dL (6.6-8.7)
[2023-02-15] MEDS: morphine 4 mg/mL SDV 1 mL 2 MG IVP (12:13)
--- NOTE | 2023-02-15 12:26 | PC.NURSE ---
Hospice/Comfort care Patient and family requesting comfort measures. Patient states let me .
--- NOTE | 2023-02-15 12:52 | P.PN_ITS ---
Subjective Subjective: Patient was seen and examined this morning,appears to be moaning in pain.Family is at bedside and they want patient to be made comfort care,as this is something that the patient wanted in case he was fallen seriously ill.Family wishes have been honoured and patient has been transitioned to comfort care. 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 Medications: Medication Review Details: Generic Name Dose Route Start Last Admin Trade Name Freq PRN Reason Stop Dose Admin Acetylcysteine 100 mg 02/12/23 16:00 02/15/23 11:13 Acetylcysteine 2 00 Mg/Ml Mdv 10 Ml INHALATION 100 mg Q4H.RESPIRATORY S CH Administration Levofloxacin/Dextr ose 750 mg in 150 mls @ 100 mls/hr 02/12/23 14:30 02/14/23 17:32 Levaquin-D5w IV Infused Q24H KENN Infusion Protocol Ipratropium Bromid e 0.5 mg 02/13/23 20:00 02/15/23 11:13 Ipratropium 0.5 Mg/2.5 Ml Neb INHALATION 0.5 mg Q4H.RESPIRATORY S CH Administration Levalbuterol HCl 1.25 mg 02/13/23 20:00 02/15/23 11:13 Levalbuterol 1.2 5 Mg/3 Ml Neb INHALATION 1.25 mg Q4H.RESPIRATORY S CH Administration Morphine Sulfate 2 mg 02/15/23 11:03 02/15/23 12:13 Morphine 4 Mg/Ml Sdv 1 Ml IVP 2 mg Q4H PRN Administration SEVERE PAIN Nicotine 1 patch 02/14/23 09:00 02/15/23 09:17 Nicotine 21 Mg P atch TRANSDERMA 1 patch DAILY KENN Administration Non-Formulary Medi cation 10 mg 02/12/23 09:00 02/15/23 08:44 Coenzyme Q10 [Co Q-10] PO Not Given DAILY KENN Vitals/I&O/Wt Last Vital Signs Temp 97.5 F L 02/15/23 04:00 Pulse 96 02/15/23 12:30 Resp 30 H 02/15/23 12:30 BP 141/62 02/15/23 12:30 Pulse Ox 93 02/15/23 12:30 O2 Del Method 02/15/23 12:30 O2 Flow Rate 10 02/15/23 12:30 FiO2 50 02/15/23 05:28 02/14/23 02/15/23 02/15/23 22:59 06:59 14:59 Intake Total 663.949 / 846.454 144.051 / 990.505 74.428 / 74.428 Output Total 650 / 650 550 / 1200 Balance 13.949 / 196.454 -405.949 / -209.495 74.428 / 74.428 Weight last 48 hrs Weight 76.34 kg Weight 75.841 kg Physical Exam Const: COMMON NORMALS: patient oriented x3 HENMT: COMMON NORMALS: normocephalic and atraumatic HEAD & SCALP: normocephalic and atraumatic Resp: COMMON NORMALS: normal respiratory effort and clear to auscultation bilaterally AUSCULTATION: clear to auscultation bilaterally OTHER: Diminished air entry bilateral Cardio: COMMON NORMALS: regular rate, regular rhythm, S1 normal heart sound present, S2 normal heart sound present, No gallops present (Cardio), No murmurs present (Cardio), No rub (Cardio) and Peripheral pulses 2+ throughout RATE: regular rate RHYTHM: regular rhythm HEART SOUNDS: S1 normal heart sound present and S2 normal heart sound present PERIPHERAL PULSES: Peripheral pulses 2+ throughout GI: COMMON NORMALS: Normal to inspection, nondistended, normoactive bowel sounds present, Soft to palpation, non-tender, No hepatosplenomegaly present and no masses AUSCULTATION: Yes normoactive bowel sounds PALPATION: Yes Soft to palpation and Yes No hepatosplenomegaly present RECTAL EXAM: Yes deferred Extremity: COMMON NORMALS: no clubbing, cyanosis or edema and no pedal edema Neuro: COMMON NORMALS: patient oriented x3 Urinary Catheter Management: Mendoza: Cath Placed During This Visit: yes Reason for Continuing Indwelling Catheter: Accurate Measurement of Urinary Output in Critically Ill Patients Urinary Catheter Date of Insertion: 02/12/23 Urinary Catheter Time of Insertion: 16:55 Data 02/15/23 09:09 02/15/23 09:09 A&P Assessment and plan (1) Community acquired pneumonia: (2) Hyponatremia: (3) Smoker: (4) Aortic stenosis, moderate: (5) COPD (chronic obstructive pulmonary disease): (6) HTN (hypertension): Qualifiers: Hypertension type: essential hypertension Qualified Code(s): I10 - Ess ential (primary) hypertension (7) Coronary artery disease: Qualifiers: Coronary Disease-Associated Artery/Lesion type: [place] artery [place] vs. transplanted heart: [place] heart Associated angina: without angina Qualified Code(s): I25.10 - Atherosclerotic heart disease of [place] coronary artery without angina pectoris (8) NSTEMI (non-ST elevated myocardial infarction): (9) Sepsis: (10) Ileus: (11) Comfort measures only status: Plan 77 year old male non obstructive CAD, mild PAD, HTN, HLD, chronic active smoker and COPD. Came in today with chief complaint of worsening shortness of breath which started last week and since then it has progressively worsened, he is also having cough with productive sputum, he was also febrile at home, denied any chest pain, palpitation, headache dizziness, abnormal sensations, abdominal pain nausea vomiting. Sepsis secondary to pneumonia: Patient meets sepsis criteria: Has elevated white cell count, fever, tachypneic, tachycardic, pneumonia as the source of infection, endorgan damage could be, elevated troponin, hyponatremia. X-ray chest: Showed : Densely consolidated infiltrate in the central left lung and lingula. The possibility of an underlying mass in this region is not excluded. CT chest with contrast: LEFT hilar airspace infiltrate extending into the LEFT upper lobe is new from the prior examinations. Recommend correlation for pneumonia and follow-up to resolution.Small LEFT and tiny RIGHT pleural effusions. C.T Abdomen and pelvis with contrast : Diffuse gastric distention with air-fluid level.Correlation for gastroparesis or gastric outlet obstruction. A few slightly distended loops of small bowel in the midabdomen and pelvis likely due to ileus.No evidence of high-grade obstruction.No hydronephrosis in either kidney. Moderate pericardial effusion. Tiny bilateral pleural effusions. C,T Neck was done as he was having difficulty swallowing: Unremarkable: may need baruim study or EGD: EKG: Sinus rhythm with PVCs Rapid COVID and influenza negative Blood culture:NTD Urine culture Sputum Gram stain and culture: MRSA PCR: pcr Urine Legionella antigen:negative Bacterial antigen panel:negative Currently started on broad-spectrum antibiotics Vanco , Zosyn,levofloxacin ( double pseudomans coverage ) Severe Hyponatremia: Possibility of SIADH in the presence of underlying pneumonia and COPD cannot be conclusively ruled Patient has denied chest pain, palpitation, headache dizziness, abnormal sensations, abdominal pain nausea vomiting. Admission serum sodium is 116 Follow TSH Urinalysis Random cortisol Serum osmolality Urine osmolality Has received hypertonic saline 300 cc 3%.Patient may need vaptans. Monitor serum sodium every 4 hours Given the fact that the patient is noted to be severely symptomatic, will avoid aggressive correction, goal correction will be around 6 to 8 mEq in 24 hours. NSTEMI: Troponin trend: 67-100-70 , proBNP 2397 Patient has currently denied any significant chest pain 2D echo: Diffuse hypokinesia of the anteroseptal and septal segments.LV ?ejection fraction around 45 to 50%. Mild left ventricular hypertrophy.?Grade I/IV diastolic dysfunction (abnormal relaxation fillingpattern), normal to mildly elevated filling pressures.??Segmental wall motion is difficult because of the frequent?ventricular arrhythmia during the study.Stenotic aortic valve with moderate calcification.Valve area was not calculated.Mild mitral annular calcification.?Mild tricuspid valve regurgitation. Moderate pericardial effusion mostly in the anterior and around ?the apical region Continue telemetry monitoring Continue aspirin and statin A-fib with RVR: New diagnosed A-fib with RVR CHADS-VASc: 4 Initially started on amiodarone drip, has been discontinued Currently on p.o. metoprolol On therapeutic anticoagulation with Lovenox Moderate pericardial effusion: Cardiology on board, possibly serial echo follow-up HFrEF : Newly diagnosed heart failure with mildly reduced ejection fraction. 2D echo results appreciated. Currently on metoprolol Cardiology on board Mild Ileus : N.G Tube was placed, unfortunately patient pulled it out. Continue to monitor for now. Currently NPO. History of COPD: Continue DuoNebs Supplemental oxygen as needed CODE STATUS: Full code DVT prophylaxis on Lovenox Attestations Medical Necessity Statement*: in hospital for comfort care. Coding Level of Care Code Acute Code for [facility] Fwd Diagnoses Community acquired pneumonia J18.9 Hyponatremia E87.1 Smoker F17.200 Aortic stenosis, moderate I35.0 COPD (chronic obstructive pulmonary disease) J44.9 HTN (hypertension) I10 Hypertension type: essential hypertension Coronary artery disease I25.10 Coronary Disease-Associated Artery/Lesion type: [place] artery [place] vs. transplanted heart: [place] heart Associated angina: without angina NSTEMI (non-ST elevated myocardial infarction) I21.4 Sepsis A41.9 Ileus K56.7 Comfort measures only status Z51.5
[2023-02-15] MEDS: LORazepam 2 mg/mL INJ 1 mL IVP (13:17)
--- NOTE | 2023-02-15 17:03 | PC.NURSE ---
Anita called and notified of patient's current status (actively dying, HR 30s, oxygen sat 60s). Patient is resting comfortably.
--- NOTE | 2023-02-15 17:57 | PC.NURSE ---
[facility] notified of patients passing at [address] [facility] coordinator Leelee, patient is currently a candidate, until further investigation patient will go [place] [facility] [place].
--- NOTE | 2023-02-15 18:56 | PC.NURSE ---
Addendum entered by James Tomlinson RN 02/15/23 19:00: Dr. Drew notified on patient's . Original Note: 1741 [address] Patient peacefully at 174, nurses at bedside. Patient's called and notified. She was in the [facility] parking lot and came into the patient's room. Belongings with . request [facility] in [place], [place] and wishes patient to be cremated. IV's removed, martinez removed, post mortem care provided. Patient sent to [facility] [place] until [facility] makes decision.
--- NOTE | 2023-02-15 22:11 | PC.NURSE ---
215 MTS spoke to Belen in ICU & has released the body. May transfer body to home.
--- NOTE | 2023-02-15 22:12 | PC.NURSE ---
2200 [facility] has been notified, they are sending transport now.
--- NOTE | 2023-02-18 12:07 | P.DES_ITS ---
Discharge Providers DDS Date of Admission: 02/11/23 14:28 Date Summary Completed: 02/09/23 Attending Provider at Admission: Joseph Drew MD Attending Provider at Discharge: Joseph Drew MD Primary Care Provider: Kaylene Veras MD Diagnoses Hospital Diagnoses (1) Gastric distention: Reason for Visit Reason for Visit SOB Summary Summary Summary: 77 year old male?non obstructive CAD, mild PAD, HTN, HLD, chronic active smoker and COPD.? Came in today with chief complaint of worsening shortness of breath which started last week and since then it has progressively worsened, he is also having cough with productive sputum, he was also febrile at home, denied any chest pain, palpitation, headache dizziness, abnormal sensations, abdominal pain nausea vomiting.He was admitted for the management of sepsis 2/2 pneumonia ,NSTEMI,Afib with rVR severe hyponatremia, HFrEF,pericardial effusion, patient was kept on broad spectrum abxs, cultures and imaging studies were done, he was on hypertonic saline for hyponatremia, as well on therapeutic ac for a.fib as well as for NSTEMI,2D ECHO as well C.T scans were done. CT chest with contrast: LEFT hilar airspace infiltrate extending into the LEFT upper lobe is new from the prior examinations. Recommend correlation for pneumonia and follow- up to resolution.Small LEFT and tiny RIGHT pleural effusions. C.T Abdomen and pelvis with contrast : Diffuse gastric distention with air-fluid level.Correlation for gastroparesis or gastric outlet obstruction. A few slightly distended loops of small bowel in the midabdomen and pelvis likely due to ileus.No evidence of high-grade obstruction.No hydronephrosis in either kidney. Moderate pericardial effusion. Tiny bilateral pleural effusions.C,T Neck was done as he was having difficulty swallowing: Unremarkable: may need baruim study or EGD:Rapid COVID and influenza negative,Blood culture:NTD,Urine Legionella antigen:negative,Bacterial antigen panel:negative.Cardiology as well as surgery was on board, surgery was on board for concerning KUB findings related to possible ileus.Given the fact that patient likely had underlying advanced copd as well in the presence of all these above mention new critical illness, and given the fact the patient was insistent on not any aggressive intervention,including intubation and CPR, intially code status was changed to AND and medical management was continued,patient was also not very agreeable to wear BIPAP and in absence of appropaite intervention and given the fact that the patient and family wanted him to be comfort care,due to lack of adequate response, patient was made comfort care he passed on 03/12/2023. TOD 5:17 PM.Family was notified. Additional Data Advance directives?: No Discharge Plan Discharge Patient Disposition: Condition: Stable Probable Cause of Probable cause of : Cardiac arrest DS Attestations Time Spent in /Discharge Care*: less than 30 min Quality - AMI: AMI present?: No Quality - Stroke: CVA present?: No Quality - VTE: VTE present?: No Coding Level of Care Code Acute Code for [facility] Fwd Diagnoses Gastric distention K31.89
== END 2023-02-15 17:42 | disposition expired | DRG 871 ==
LOC: ER 13:10 → ICU 14:30
PROVIDERS: Internal Medicine; Admitting Provider Internal Medicine; Emergency Provider Emergency Medicine; PCP Family Medicine; Visit Provider Internal Medicine
DX: A41.9 Sepsis, unspecified organism (principal); I21.4 Non-ST elevation (NSTEMI) myocardial infarction; J18.9 Pneumonia, unspecified organism; I50.33 Acute on chronic diastolic (congestive) heart failure; J44.0 Chronic obstructive pulmonary disease with (acute) lower respiratory infection; E87.1 Hypo-osmolality and hyponatremia; K56.7 Ileus, unspecified; N17.9 Acute kidney failure, unspecified; Z51.5 Encounter for palliative care; I25.10 Atherosclerotic heart disease of native coronary artery without angina pectoris; I73.9 Peripheral vascular disease, unspecified; I11.0 Hypertensive heart disease with heart failure; E78.5 Hyperlipidemia, unspecified; I48.91 Unspecified atrial fibrillation; K31.89 Other diseases of stomach and duodenum; I46.9 Cardiac arrest, cause unspecified; I08.0 Rheumatic disorders of both mitral and aortic valves; F17.210 Nicotine dependence, cigarettes, uncomplicated
CPT/HCPCS: 36415; 36592; 36600; 51702; 70491; 71045; 71260; 74018; 74177; 80051; 80053; 80202; 81003; 82330; 82805; 83605; 83735; 83880; 84145; 84295; 84443; 84484; 85007; 85025; 85378; 86403; 87040; 87426; 87449; 87641; 87804; 92523; 92610; 93005; 93306; 94640; 94660; 96365; 96367; 96372; 96375; 96376; 99285; A4222; J0282; J0696; J1200; J1650; J1940; J1956; J2060; J2270; J2543; J2765; J2930; J3370; J3475; J7040; J7060; J7070; J7131; J7608; J7613; J7614; J7626; J7644; P9046; Q9967